=== PATIENT | male | born 1950 | race Caucasian/White ===

== ENCOUNTER 2017-12-27 21:15 | Inpatient (IN) ==
[2017-12-27 21:51] LABS: Baso # (Auto) 0.1 th/mm3 (0.0-0.2); Baso % (Auto) 0.6 % (0.0-2.0); Eos # (Auto) 0.3 th/mm3 (0.0-0.4); Eos % (Auto) 1.6 % (0.0-4.0); Hematocrit 34.3 % (39.0-51.0); Hemoglobin 11.2 gm/dL (13.0-17.0); Lymph # (Auto) 3.3 th/mm3 (1.0-4.8); Lymph % (Auto) 19.1 % (9.0-44.0); Mean Corpuscular HGB Conc 32.6 % (32.0-36.0); Mean Corpuscular Hemoglobin 28.9 pg (27.0-34.0); Mean Corpuscular Volume 88.7 fL (80.0-100.0); Mean Platelet Volume 7.6 fL (7.0-11.0); Mono # (Auto) 0.9 th/mm3 (0.0-0.9); Mono % (Auto) 5.5 % (0.0-8.0); Neut # (Auto) 12.7 th/mm3 (1.8-7.7); Neut % (Auto) 73.2 % (16.0-70.0); Platelet Count 542 th/mm3 (150-450); Red Blood Count 3.86 mil/mm3 (4.50-5.90); Red Cell Distribution Width 15.1 % (11.6-17.2); White Blood Count 17.3 th/mm3 (4.0-11.0)
[2017-12-27 22:21] LABS: Albumin 3.1 g/dL (3.4-5.0); Anion Gap 13 meq/L (5-15); Aspartate Aminotransferase 11 U/L (15-37); Blood Urea Nitrogen 33 mg/dL (7-18); Calcium 7.8 mg/dL (8.5-10.1); Carbon Dioxide 16.7 meq/L (21.0-32.0); Chloride 108 meq/L (98-107); Glomerular Filtration Rate 20 mL/min (>89); Glucose,Random 62 mg/dL (74-106); Magnesium 1.8 mg/dL (1.5-2.5); Sodium 138 meq/L (136-145)
[2017-12-27 22:22] LABS: Alanine Aminotransferase 18 U/L (12-78)
[2017-12-27 22:25] LABS: Alkaline Phosphatase 101 U/L (45-117); Total Protein 7.1 g/dL (6.4-8.2)
--- NOTE | 2017-12-27 22:38 | ED ---
HPI General Chief Complaint: Syncope Stated Complaint: Syncope Time Seen by Provider: 12/27/17 21:31 Source: patient and family Mode of arrival: EMS Limitations: no limitations History of Present Illness HPI narrative: 67-year-old male the presents to the ED for evaluation of syncope. Patient had a syncopal episode today. Per patient he has been having a few weeks of dizziness with exertion. Per patient he went to his doctor today and his doctor was concerned about his condition and ordered a CT scan as well as blood work. Patient has not got any of this test yet as he was just seen today. He was told that he will be called to get a CT scan. Per patient today he was doing his usual routine and per patient he had 4 drinks and then was cooking. Per patient he was cooking and also when he started feeling like he was going to pass out. Per patient he did pass out. He denies any chest pain or shortness of breath proceeding to the episode. Per significant other he was out for possible couple of minutes. He did landed on his left hand and has pain on his left hand. He states that he normally drinks on Fridays. He does have a history of COPD, diabetes, high blood pressure. He denies any recent travel. No other injuries reported. No neck or back pain. No leg pain. Patient concerned because he is never actually had a syncopal episode in the past. Denies any other medical issues. Related Data Home Medications Medication Instructions Recorded Confirmed amlodipine [Norvasc] 10 mg PO DAILY 12/27/17 12/27/17 fluoxetine [Prozac] 40 mg PO DAILY 12/27/17 12/27/17 lisinopril 28 mg PO BID 12/27/17 12/27/17 lisinopril 40 mg PO DAILY 12/27/17 12/27/17 Allergies Allergy/AdvReac Type Severity Reaction Status Date / Time No Known Allergies Allergy Unknown Abdominal Uncoded 12/27/17 21:20 Pain Review of Systems ROS: all other systems reviewed are negative [facility] Medical History Medical History COPD (chronic obstructive pulmonary disease) (Acute) Diabetes (Acute) HTN (hypertension) (Acute) Osteoarthritis (Acute) Social History Social History Substance History: No History of Abuse Second Hand Smoke Exposure: No Smoking Status: Current every day smoker Tobacco Type: Cigarettes How Often Do You Have a Drink Containing Alcohol: 2 to 3 times a week Recent Travel in [facility] within the Last 8 Weeks: No Recent Out of Country Travel within the Last 8 Weeks: No Immunization History Tetanus Immunization: >5 Years Hx Influenza Vaccine This Season: No Exam Narrative Exam Narrative: GENERAL: Well appearing SKIN: Focused skin assessment warm/dry. HEAD: Atraumatic. Normocephalic. EYES: Pupils equal and round. No scleral icterus. No injection or drainage. ENT: No nasal bleeding or discharge. Mucous membranes pink and moist. Tongue is midline. No uvula deviation. NECK: Trachea midline. No JVD. CARDIOVASCULAR: Regular rate and rhythm. No murmur appreciated. RESPIRATORY: No accessory muscle use. Clear to auscultation. Breath sounds equal bilaterally. GASTROINTESTINAL: Abdomen soft, non-tender, nondistended. Hepatic and splenic margins not palpable. MUSCULOSKELETAL: No obvious deformities. No clubbing. No cyanosis. No edema. Full range of motion of the upper and lower extremities bilaterally. Patient does have some pain to the left arm. Able to move all fingers fully. 2+ pulses bilaterally. Sensation intact bilaterally. NEUROLOGICAL: Awake and alert. No obvious cranial nerve deficits. Motor grossly within normal limits. Normal speech. PSYCHIATRIC: Appropriate mood and affect; insight and judgment normal. Course Initial Documented Vital Signs Pulse Rate 89 12/27/17 21:21 Respiratory Rate 16 12/27/17 21:21 Blood Pressure 182/80 H 12/27/17 21:21 Pulse Oximetry 98 12/27/17 21:21 Last Documented Vital Signs Temperature 98.6 F 12/27/17 21:25 Pulse Rate 88 12/27/17 21:25 Respiratory Rate 16 12/27/17 21:25 Blood Pressure 182/80 H 12/27/17 21:21 Pulse Oximetry 98 12/27/17 21:25 Medical Decision Making MDM Narrative Medical decision making narrative: 67-year-old male the presents to the ED for evaluation of syncope. Patient was properly examined and was found to have signs and symptoms consistent with syncope. Labs and imaging were ordered. Labs and imaging were essentially unremarkable other than for what appears to be acute kidney failure. Unclear etiology at this time. Could be dehydration. Patient does have a very high white blood cell count as well. Unclear etiology as well. Partially patient cannot get CTA to rule out PE. Patient is not tachycardic however. At this time I do recommend admission for further evaluation of this. Patient agrees with this. Case was discussed with the residents who agreed admission to their service. Patient was admitted. Medical Screen Exam Complete: Yes Emergency Medical Condition: Yes Differential Diagnosis Differential Diagnosis: Syncope versus ACS versus CVA versus orthostatic hypotension versus kidney failure Medical Records Medical records reviewed: Yes I reviewed the patient's medical records. Lab Data Lab results reviewed: Yes I reviewed the patient's lab results. Lab results narrative: Troponin and CK-MB negative. Result diagrams: 12/27/17 21:38 12/27/17 21:38 Lab Results 12/27/17 12/27/17 Range/Units 21:38 21:38 WBC 17.3 H (4.0-11.0) th/mm3 RBC 3.86 L (4.50-5.90) mil/mm3 Hgb 11.2 L (13.0-17.0) gm/dL Hct 34.3 L (39.0-51.0) % MCV 88.7 (80.0-100.0) fL MCH 28.9 (27.0-34.0) pg MCHC 32.6 (32.0-36.0) % RDW 15.1 (11.6-17.2) % Plt Count 542 H (150-450) th/mm3 MPV 7.6 (7.0-11.0) fL Neut % (Auto) 73.2 H (16.0-70.0) % Lymph % (Auto) 19.1 (9.0-44.0) % [place] % (Auto) 5.5 (0.0-8.0) % Eos % (Auto) 1.6 (0.0-4.0) % Baso % (Auto) 0.6 (0.0-2.0) % Neut # (Auto) 12.7 H (1.8-7.7) th/mm3 Lymph # (Auto) 3.3 (1.0-4.8) th/mm3 [place] # (Auto) 0.9 (0.0-0.9) th/mm3 Eos # (Auto) 0.3 (0.0-0.4) th/mm3 Baso # (Auto) 0.1 (0.0-0.2) th/mm3 WBC Differential . Differential Comment Auto diff final Sodium 138 (136-145) meq/L Potassium 5.0 (3.5-5.1) meq/L Chloride 108 H (98-107) meq/L Carbon Dioxide 16.7 L (21.0-32.0) meq/L Anion Gap 13 (5-15) meq/L BUN 33 H (7-18) mg/dL Creatinine 3.08 H (0.60-1.30) mg/dL Estimated GFR 20 L (>89) mL/min Random Glucose 62 L (74-106) mg/dL Calcium 7.8 L (8.5-10.1) mg/dL Magnesium 1.8 (1.5-2.5) mg/dL Total Bilirubin 0.1 L (0.2-1.0) mg/dL AST 11 L (15-37) U/L ALT 18 (12-78) U/L Alkaline Phosphatase 101 (45-117) U/L Troponin I Less than 0.02 L (0.02-0.05) ng/mL Total Protein 7.1 (6.4-8.2) g/dL Albumin 3.1 L (3.4-5.0) g/dL Imaging Data Attestation: I personally reviewed and interpreted this imaging study as follows : Radiologist's impression: Head CT 12/27/17 21:35 CONCLUSION: 1. No acute intracranial abnormalities. Right maxillary and sphenoid sinusitis. . ECG Data Attestation: I personally reviewed and interpreted this ECG as follows: Interpretation: EKG shows sinus rhythm with no sign of acute ischemia and arrhythmia read by me and attending. Discharge Plan Discharge Disposition Patient Disposition: 30 Still Patient Discharge Details Diagnosis: Syncope, Acute kidney injury Physicians Team ED Provider: Jay Villalobos ED Midlevel Provider: Jerod Davis Primary Care Provider: UNKNOWN, Rxs /Orders / Referrals /Forms Prescriptions: No Action fluoxetine [Prozac] 40 mg Capsule 40 mg PO DAILY RF: 0 lisinopril 20 mg Tablet 28 mg PO BID RF: 0 amlodipine [Norvasc] 10 mg Tablet 10 mg PO DAILY RF: 0 lisinopril 40 mg Tablet 40 mg PO DAILY RF: 0 Status ED Status: With Doctor
[2017-12-27] MEDS ORDERED: Sod Chloride 0.9% Inj 1,000 ML IV.SIG SCH (22:45)
--- NOTE | 2017-12-27 22:58 | CT ---
EXAM DATE: 12/27/2017 9:39 PM EDT AGE/SEX: 67 years / Male INDICATIONS: Syncopal episode, dizziness. CLINICAL DATA: This is the patient's initial encounter. Patient reports that signs and symptoms have been present for 2 days and indicates a pain score of 4/10. MEDICAL/SURGICAL HISTORY: Chronic obstructive pulmonary disease. Diabetes. Hypertension. Osteoar thritis. None. RADIATION DOSE: 56.35 CTDI (mGy) COMPARISON: No prior exams available for comparison. TECHNIQUE: CT of the head without contrast. Using automated exposure control and adjustment of the mA and/or kV according to patient size, radiation dose was kept as low as reasonably achievable to ob tain optimal diagnostic quality images. DICOM format image data is available electronically for revi ew and comparison. FINDINGS: Cerebrum: The ventricles are normal for age. No evidence of midline shift, mass lesion, hemorrhage or acute infarction. No extraaxial fluid collections are seen. Posterior Fossa: The cerebellum and brainstem are intact. The 4th ventricle is midline. The cerebe llopontine angle is unremarkable. Extracranial: The visualized portion of the orbits is intact. There is opacification of the right ma xillary sinus and partial opacification of the right sphenoid sinus. Trace fluid left sphenoid sinus. Skull: The calvaria is intact. No evidence of skull fracture. CONCLUSION: 1. No acute intracranial abnormalities. Right maxillary and sphenoid sinusitis. . Electronically signed by: Hugh Cutler MD 12/27/2017 10:57 PM EDT
--- NOTE | 2017-12-27 23:28 | P.HPFP ---
History of Present Illness Primary Care Physician: Dr. Emmanuel Love History of Present Illness: 67-year-old male with COPD, hypertension, and diabetes presents to the ED for syncopal episode. Patient reports that he saw his PCP, Dr. Kayden Love today. Patient was being worked up for several things. Patient has had a one- month history of nausea and vomiting. He states that he was having nonbloody, nonbilious vomiting 1 time per day for a couple weeks and then decreased vomiting to 2-3 times per week. Patient reports that he has also had a 20 pound weight loss in the past month. Due to patient's extensive smoking history , nausea vomiting, and weight loss, outpatient CT was ordered for patient. Denies fevers, night sweats, dysuria, hematochezia, and melena. Patient reports that he has never had a colonoscopy. Patient also reports that he was also sent home with amoxicillin 500 mg every 8h for a tooth infection. Patient reports that he has pain in his right top wisdom tooth. He reports it has been hurting for about 1 week. He does not currently have a dentist. States that he has been taking ibuprofen w/ mild relief for the past 3 days for toothache. This evening, while patient was cooking, patient recently passed out around 9: 30 PM. Patient was brought to the ED via ambulance. Syncope episode was witnessed by girlfriend. Patient reports losing consciousness for a couple of minutes. He fell on his left hand and reports that it is painful and it is hard to bend his fingers. He did not hit his head. He denies tongue biting, loss of bowel or bladder control, palpitations, and diaphoresis. He does endorse weakness in his legs. Patient reports that this is his first syncopal episode. Denies history of seizures and history of cardiac issues. 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, retired 2013 Alcohol: six pack weekly Tobacco: PPD X 50 years - Diagnosis (1) Syncope (2) Hand injury (3) Acute kidney injury (4) Anemia (5) Infected tooth (6) COPD (chronic obstructive pulmonary disease) (7) Diabetes (8) HTN (hypertension) (9) Current smoker (10) Nutrition, metabolism, and development symptoms Review of Systems Constitutional: Reports weight loss, Denies chills, Denies fever(s), Denies headache(s), Denies night sweats Eyes: Denies blurry vision, Denies change in vision Ears, Nose, Mouth, and Throat: Reports dental pain, Denies abnormal hearing, Denies difficulty swallowing Cardiovascular: Denies chest pain, Denies lightheadedness Respiratory: Denies cough, Denies shortness of breath Gastrointestinal: Reports vomiting, Denies abdominal pain, Denies black, tarry stools, Denies bright, red blood in stools, Denies vomiting blood Musculoskeletal: Denies muscle weakness Comments: lower extremity weakness Neurologic: Reports weakness, Denies tingling/numbness/burning sensations PMFSH - History History Provided By: Patient, Hired Help / EMT - Medical History Medical History: Medical History (Last Reviewed 12/27/17 @ 22:36 by MOLLY Lima) COPD (chronic obstructive pulmonary disease) Diabetes HTN (hypertension) Osteoarthritis - Surgical History Surgical History: Surgical History (Last Updated 12/28/17 @ 01:05 by Uam Lucio MD, R2) No pertinent past surgical history (Acute) - Family History Family History: Family History (Last Updated 12/28/17 @ 01:06 by Uma Lucio MD, R2) Other No significant family history - Social History I have reviewed the patient's Social History: Yes - Tobacco History Second Hand Smoke Exposure: No Tobacco Use In Past 30 Days: No Smoking Status: Current every day smoker Tobacco Type: Cigarettes - Alcohol History How Often Do You Have a Drink Containing Alcohol: 2 to 3 times a week - Substance Use History Substance History: No History of Abuse - Travel History Recent Travel in the [place] Within the Last 8 Weeks: No Recent Travel Out of the Country Within the Last 8 Weeks: No - Immunization History Tetanus Immunization: >5 Years Hx Influenza Vaccine This Season: No Medications and Allergies Active Medications: Active Medications Sodium Chloride (Ns Inj) 1,000 mls @ 0 mls/hr IV.SIG BOLUS RE Allergies Allergy/AdvReac Type Severity Reaction Status Date / Time No Known Allergies Allergy Unknown Abdominal Uncoded 12/27/17 21:20 Pain Home Medications Medication Instructions Recorded Confirmed Type amlodipine [Norvasc] 10 mg PO DAILY 12/27/17 12/27/17 History fluoxetine [Prozac] 40 mg PO DAILY 12/27/17 12/27/17 History lisinopril 28 mg PO BID 12/27/17 12/27/17 History lisinopril 40 mg PO DAILY 12/27/17 12/27/17 History Exam Vital signs: Vital Signs 12/27/17 21:21 12/27/17 21:25 Temperature 98.6 F Pulse Rate 89 88 Respiratory Rate 16 16 Blood Pressure 182/80 H Pulse Oximetry 98 98 Intake & Output 12/27/17 12/27/17 12/28/17 06:59 18:59 06:59 Weight 77.111 kg - Constitutional no acute distress - Routine HEENT Exam Head: Present: normocephalic, atraumatic Eye: Present: EOMI, PERRL ENT: Present: mucous membranes moist Comments: slight pallor conjunctiva noted bilaterally - Routine Neck Exam Present: supple, full ROM. Absent: lymphadenopathy - Routine Respiratory Exam Present: wheezes. Absent: accessory muscle use, crackles Comments: Wheezing throughout all lung rojas - Routine Cardiovascular Exam Present: RRR. Absent: murmur, gallop, rubs - Routine Abdominal Exam Present: soft, normoactive bowel sounds. Absent: tenderness, distended - Routine Extremities Exam Present: full ROM. Absent: cyanosis, clubbing, edema Comments: Left hand with ecchymoses and bruising and swelling of left fingers - Routine Skin Exam Present: intact. Absent: cyanosis - Routine Neurological Exam Present: alert, oriented X3 Results - Labs Result diagrams: 12/27/17 21:38 12/27/17 21:38 Abnormal lab results 12/27/17 12/27/17 Range/Units 21:38 21:38 WBC 17.3 H (4.0-11.0) th/mm3 RBC 3.86 L (4.50-5.90) mil/mm3 Hgb 11.2 L (13.0-17.0) gm/dL Hct 34.3 L (39.0-51.0) % Plt Count 542 H (150-450) th/mm3 Neut % (Auto) 73.2 H (16.0-70.0) % Neut # (Auto) 12.7 H (1.8-7.7) th/mm3 Chloride 108 H (98-107) meq/L Carbon Dioxide 16.7 L (21.0-32.0) meq/L BUN 33 H (7-18) mg/dL Creatinine 3.08 H (0.60-1.30) mg/dL Estimated GFR 20 L (>89) mL/min Random Glucose 62 L (74-106) mg/dL Calcium 7.8 L (8.5-10.1) mg/dL Total Bilirubin 0.1 L (0.2-1.0) mg/dL AST 11 L (15-37) U/L Troponin I Less than 0.02 L (0.02-0.05) ng/mL Albumin 3.1 L (3.4-5.0) g/dL Short CBC 12/27/17 Range/Units 21:38 WBC 17.3 H (4.0-11.0) th/mm3 Hgb 11.2 L (13.0-17.0) gm/dL Hct 34.3 L (39.0-51.0) % Plt Count 542 H (150-450) th/mm3 BMP 12/27/17 21:38 Sodium 138 Potassium 5.0 Chloride 108 H Carbon Dioxide 16.7 L BUN 33 H Creatinine 3.08 H Calcium 7.8 L Cardiac Enzymes 12/27/17 Range/Units 21:38 Troponin I Less than 0.02 L (0.02-0.05) ng/mL Liver Function 12/27/17 Range/Units 21:38 Total Bilirubin 0.1 L (0.2-1.0) mg/dL AST 11 L (15-37) U/L ALT 18 (12-78) U/L Alkaline Phosphatase 101 (45-117) U/L Albumin 3.1 L (3.4-5.0) g/dL - Imaging Impressions Head CT 12/27/17 21:35 CONCLUSION: 1. No acute intracranial abnormalities. Right maxillary and sphenoid sinusitis. . Caprini VTE Risk Assessment Caprini VTE Risk Assessment: Moderate/High Risk (score >= 2) Caprini Risk Assessment Model: Point Value = 1 Point Value = 2 Point Value = 3 Point Value = 5 Age 41-60 Minor surgery BMI > 25 kg/m2 Swollen legs Varicose veins or History of unexplained or recurrent spontaneous Oral contraceptives or hormone replacement Sepsis (< 1 month) Serious lung disease, including pneumonia (< 1 month) Abnormal pulmonary function Acute myocardial infarction Congestive heart failure (< 1 month) History of inflammatory bowel disease Medical patient at bed rest Age 61-74 Arthroscopic surgery Major open surgery (> 45 min) Laparoscopic surgery (> 45 min) Malignancy Confined to bed (> 72 hours) Immobilizing plaster cast Central venous access Age >= 75 History of VTE Family history of VTE Factor V Leiden Prothrombin [id number] Lupus anticoagulant Anticardiolipin antibodies Elevated serum homocysteine Heparin-induced thrombocytopenia Other congenital or acquired thrombophilia Stroke (< 1 month) Elective arthroplasty Hip, pelvis, or leg fracture Acute spinal cord injury (< 1 month) Prophylaxis Regimen: Total Risk Factor Score Risk Level Prophylaxis Regimen 0-1 Low Early ambulation 2 Moderate Order ONE of the following: *Sequential Compression Device (SCD) *Heparin 5000 units SQ BID 3-4 Higher Order ONE of the following medications: *Heparin 5000 units SQ TID *Enoxaparin/Lovenox 40 mg SQ daily (WT < 150 kg, CrCl > 30 mL/min) *Enoxaparin/Lovenox 30 mg SQ daily (WT < 150 kg, CrCl > 10-29 mL/min) *Enoxaparin/Lovenox 30 mg SQ BID (WT < 150 kg, CrCl > 30 mL/min) AND/OR *Sequential Compression Device (SCD) 5 or more Highest Order ONE of the following medications: *Heparin 5000 units SQ TID (Preferred with Epidurals) *Enoxaparin/Lovenox 40 mg SQ daily (WT < 150 kg, CrCl > 30 mL/min) *Enoxaparin/Lovenox 30 mg SQ daily (WT < 150 kg, CrCl > 10-29 mL/min) *Enoxaparin/Lovenox 30 mg SQ BID (WT < 150 kg, CrCl > 30 mL/min) AND *Sequential Compression Device (SCD) Assessment and Plan - Assessment (1) Syncope Code(s): R55 - Syncope and collapse Status: Acute Plan: 67-year-old male with COPD, hypertension, diabetes presents to the ED with syncopal episode. Patient admitted for overnight observation. Differential diagnosis: Vasovagal vs dehydration vs infection vs electrolyte imbalance vs cardiogenic vs neurogenic -Head CT negative -Chest x-ray negative -EKG demonstrates sinus rhythm -Continue cardiac telemetry -Obtain orthostatic blood pressures -Neurochecks every 4h (2) Hand injury Code(s): S69.90XA - Unspecified injury of unspecified wrist, hand and finger(s) , initial encounter Status: Acute Plan: Left hand injury due to fall. Wrist and hand x-ray demonstrates fractures at the proximal aspect of the fourth and fifth proximal phalanges. Hand surgery consulted, appreciate recommendations N.p.o. after midnight. Coagulation profile ordered Type and Screen ordered (3) Acute kidney injury Code(s): N17.9 - Acute kidney failure, unspecified Status: Acute Plan: Patient with a baseline creatinine of 1.7. BMP demonstrates BUN of 33 and creatinine of 3.08 KAYLA most likely due to dehydration Avoid nephrotoxic agents Continue normal saline 120mls/hr Continue to monitor (4) Anemia Code(s): D64.9 - Anemia, unspecified Status: Acute Plan: Hb/Hct of 11.2/34.3, MCV of 88.7 Suspecting iron deficiency anemia Iron panel ordered Transfuse if hemoglobin less than 7 (5) Infected tooth Code(s): K04.7 - Periapical abscess without sinus Status: Acute Plan: Patient with infected right wisdom tooth. Patient reports that he was not able to cotton picker his amoxicillin prescription today Due to KAYLA, will start patient on clindamycin 450 mg p.o. every 8 hours Will need to establish with a dentist outpatient (6) COPD (chronic obstructive pulmonary disease) Code(s): J44.9 - Chronic obstructive pulmonary disease, unspecified Status: Acute Plan: Patient currently not on home oxygen Patient reports being on home albuterol nebs as needed Wheezing noted throughout all lung rojas noted on physical exam. DuoNeb every 4 hours (7) Diabetes Code(s): E11.9 - Type 2 diabetes mellitus without complications Status: Acute Plan: Hold home Levemir, patient currently NPO after midnight for hand surgery Low dose SSI (8) HTN (hypertension) Code(s): I10 - Essential (primary) hypertension Status: Acute Plan: Continue amlodipine 10 mg daily Hold home lisinopril 20-40mg daily due to KAYLA Clonidine 0.1 mg as needed for blood pressures greater than 180/100 (9) Current smoker Code(s): F17.200 - Nicotine dependence, unspecified, uncomplicated Status: Acute Plan: 50 yr pack year smoking history Patient declined nicotine patch (10) Nutrition, metabolism, and development symptoms Code(s): R63.8 - Other symptoms and signs concerning food and fluid intake Status: Acute Plan: Diet: N.p.o. after midnight Fluids: NS 120mls/hr Cardiac telemetry, vitals every 4, monitor I's and O's DVT ppx: SCDs and ambulation (1) Syncope Qualifiers: Syncope type: unspecified Qualified Code(s): R55 - Syncope and collapse
--- NOTE | 2017-12-27 23:37 | XR ---
EXAM DATE: 12/27/2017 10:41 PM EDT AGE/SEX: 67 years / Male INDICATIONS: Pain due to fall. CLINICAL DATA: This is the patient's initial encounter. Patient reports that signs and symptoms have been present for 1 day and indicates a pain score of 4/10. MEDICAL/SURGICAL HISTORY: . Chronic obstructive pulmonary disease. Diabetes. Hypertension. Oste oarthritis. None. COMPARISON: No prior exams available for comparison. FINDINGS: There is fracturing at the proximal aspects of the fourth and fifth proximal phalanges. No other frac tures seen. CONCLUSION: Acute fracturing at the proximal aspect of the fourth and fifth proximal phalanges. Electronically signed by: Gm Rae MD 12/27/2017 11:35 PM EDT
--- NOTE | 2017-12-27 23:40 | XR ---
EXAM DATE: 12/27/2017 10:41 PM EDT AGE/SEX: 67 years / Male INDICATIONS: Pain due to fall. CLINICAL DATA: This is the patient's initial encounter. Patient reports that signs and symptoms have been present for 1 day and indicates a pain score of 4/10. MEDICAL/SURGICAL HISTORY: . Chronic obstructive pulmonary disease. Diabetes. Hypertension. Oste oarthritis. None. COMPARISON: No prior exams available for comparison. FINDINGS: The carpal bones and wrist appear intact and normally aligned. Again noted are fractures at the proxi mal aspects of the fourth and fifth proximal phalanges. CONCLUSION: Fractures at the proximal aspects of the fourth and fifth proximal phalanges. Electronically signed by: Gm Rae MD 12/27/2017 11:38 PM EDT
--- NOTE | 2017-12-27 23:56 | XR ---
EXAM DATE: 12/27/2017 11:19 PM EDT AGE/SEX: 67 years / Male INDICATIONS: Shortness of breath, syncopal episode. CLINICAL DATA: This is the patient's initial encounter. Patient reports that signs and symptoms have been present for 1 day and indicates a pain score of 0/10. MEDICAL/SURGICAL HISTORY: Chronic obstructive pulmonary disease. Hypertension. Diabetes. None . COMPARISON: No prior exams available for comparison. FINDINGS: A single AP view of the chest demonstrates the lungs to be symmetrically aerated without evidence of mass, infiltrate or effusion. The cardiomediastinal contours are unremarkable. Osseous structures a re intact. CONCLUSION: No acute cardiopulmonary process. Electronically signed by: Gm Rae MD 12/27/2017 11:55 PM EDT
[2017-12-28] MEDS ORDERED: Dextrose 50% in Water 50 ML Vial IV.PUSH PRN (00:29)
[2017-12-28] MEDS ORDERED: Sod Chloride 0.9% Inj 1,000 ML IV.CONT SCH (00:30)
[2017-12-28] MEDS ORDERED: Acetaminophen 325 MG Tablet PO PRN (00:44)
[2017-12-28] MEDS ORDERED: Naloxone Inj 0.4 MG/ML Vial IV.PUSH PRN (01:26)
[2017-12-28] MEDS ORDERED: amLODIPine 10 MG Tablet PO ONE (01:26)
[2017-12-28 02:20] LABS: Baso # (Auto) 0.1 th/mm3 (0.0-0.2); Baso % (Auto) 0.4 % (0.0-2.0); Eos # (Auto) 0.1 th/mm3 (0.0-0.4); Eos % (Auto) 0.3 % (0.0-4.0); Hematocrit 34.5 % (39.0-51.0); Hemoglobin 11.4 gm/dL (13.0-17.0); Lymph # (Auto) 1.3 th/mm3 (1.0-4.8); Lymph % (Auto) 6.6 % (9.0-44.0); Mean Corpuscular HGB Conc 33.1 % (32.0-36.0); Mean Corpuscular Hemoglobin 29.1 pg (27.0-34.0); Mean Corpuscular Volume 87.8 fL (80.0-100.0); Mean Platelet Volume 7.1 fL (7.0-11.0); Mono # (Auto) 0.8 th/mm3 (0.0-0.9); Mono % (Auto) 3.9 % (0.0-8.0); Neut # (Auto) 17.5 th/mm3 (1.8-7.7); Neut % (Auto) 88.8 % (16.0-70.0); Platelet Count 504 th/mm3 (150-450); Red Blood Count 3.93 mil/mm3 (4.50-5.90); Red Cell Distribution Width 14.9 % (11.6-17.2); White Blood Count 19.7 th/mm3 (4.0-11.0)
[2017-12-28 02:23] LABS: Iron 40 mcg/dL (65-175); Total Iron Binding Capacity 266 mcg/dL (250-450)
[2017-12-28 02:28] LABS: INR 0.9 Ratio; Prothrombin Time 9.6 sec (9.8-11.6)
[2017-12-28 03:11] LABS: Albumin 3.2 g/dL (3.4-5.0); Anion Gap 10 meq/L (5-15); Aspartate Aminotransferase 13 U/L (15-37); Blood Urea Nitrogen 36 mg/dL (7-18); Calcium 8.6 mg/dL (8.5-10.1); Carbon Dioxide 18.2 meq/L (21.0-32.0); Chloride 110 meq/L (98-107); Glomerular Filtration Rate 21 mL/min (>89); Glucose,Random 89 mg/dL (74-106); Potassium 5.6 meq/L (3.5-5.1); Sodium 138 meq/L (136-145)
[2017-12-28 03:19] LABS: Alanine Aminotransferase 19 U/L (12-78); Alkaline Phosphatase 109 U/L (45-117); Total Protein 7.2 g/dL (6.4-8.2)
[2017-12-28 06:13] LABS: Bacteria,Urine Rare /hpf; Bilirubin,Urine Negative (Negative); Clarity,Urine Cloudy (Clear); Color,Urine Yellow (Yellw/Straw); Glucose,Urine (UA) 50 mg/dL (Negative); Hyaline Casts,Urine 7 /lpf (0-3); Leukocyte Esterase,Urine Negative (Negative); Mucus,Urine Few /lpf (Occasional); Nitrite,Urine Negative (Negative); Renal Epithelial Cells,Urine 1 /hpf; Squamous Epithelial Cell,Urine 1 /hpf (0-5); Transitional Epi Cells,Urine <1 /hpf
[2017-12-28] MEDS ORDERED: Dextrose 5%/NaCl 0.9% Inj 1,000 ML IV.CONT SCH (08:00)
[2017-12-28] MEDS ORDERED: Non-Formulary Drug (Fluoxetine [Prozac] 40 MG) PO SCH (09:00)
[2017-12-28] MEDS ORDERED: Sodium Polystyrene Sulfonate/Sorbitol Liq 15 GM/60 ML UDC PO ONE (09:11)
--- NOTE | 2017-12-28 09:39 | ECG ---
Date Performed: 12/27/2017 Time Performed: 21:26:59 PTAGE: 67 years EKG: Sinus rhythm NORMAL ECG I cannot accurately compare EKGs as prior EKG has marked artifact. PREVIOUS TRACING : 04/26/2016 13.38 DOCTOR: Richard Medina Interpretating Date/Time 12/28/2017 09:37:38
[2017-12-28] MEDS: Insulin NovoLOG Aspart Correctional Sugar Inj SQ SCH ×4 (09:44→20:58)
[2017-12-28] MEDS: Insulin Detemir Inj 1,000 UNIT/10 ML Vial SQ SCH ×2 (10:11→21:00)
[2017-12-28 11:05] LABS: Hepatitits B Surface Antigen Nonreactive (Nonreactive)
[2017-12-28 11:16] LABS: Creatinine,Urine Random 60 mg/dL (27-300)
[2017-12-28 11:34] LABS: Hepatitis A IgM Antibody Nonreactive (Nonreactive)
--- NOTE | 2017-12-28 11:56 | CT ---
EXAM DATE: 12/28/2017 8:47 AM EDT AGE/SEX: 67 years / Male INDICATIONS: Shortness of breath. Weakness. CLINICAL DATA: This is the patient's initial encounter. Patient reports that signs and symptoms have been present for 1 day and indicates a pain score of 0/10. MEDICAL/SURGICAL HISTORY: Chronic obstructive pulmonary disease. Diabetes. Hypertension. None. RADIATION DOSE: 8.32 CTDI (mGy) COMPARISON: No prior exams available for comparison. TECHNIQUE: Multiple contiguous axial images were obtained through the chest without contrast. Image s were obtained in suspended respiration using multiple row detector helical technique. Using automa josue exposure control and adjustment of the mA and/or kV according to patient size, radiation dose was kept as low as reasonably achievable to obtain optimal diagnostic quality images. DICOM format imag e data is available electronically for review and comparison. FINDINGS: Lungs: No consolidation or pneumothorax. There is mild dependent atelectasis. In the left upper lob e there is a smooth 8mm noncalcified pulmonary nodule. Subtle paraseptal emphysematous changes are pr esent in the upper lobes bilaterally. Questionable 4 mm nodule versus thickening of the minor fissure is seen in the right lung on image 36. Mediastinum: The heart and great vessels demonstrate no acute abnormality. No lymphadenopathy is id entified. There is moderate atherosclerotic disease of the aorta. Pleurae: No pleural effusion or pleural thickening. Axillae: No lymphadenopathy. Musculoskeletal: There are mild degenerative changes of the thoracic spine. Soft tissue density smoo th masslike structure is located directly posterior to the medial left clavicle and adjacent to the s ternoclavicular joint. It measures approximately 4.1 x 2.0 x 3.7 cm. There is adjacent scalloping of the posterior aspect of the clavicle with associated sclerotic rim suggesting that it is a chronic pr ocess. The masslike structure has a mild mass effect on the adjacent structures including the great v essels and thyroid gland. Other: The visualized upper abdominal structures demonstrate no acute abnormality. CONCLUSION: 1. No acute abnormality is identified to explain the shortness of breath. Very mild emphysematous ch anges are appreciated. 2. Nonspecific 4.1 cm masslike structure posterior to the medial left clavicle. Given the location a djacent to the sternoclavicular joint and I believe this may represent a hypertrophic synovial proces s related to a degenerative process. This causing a chronic erosion on the posterior aspect of the me dial clavicle. Suggest correlating for any pain in this area. This would ideally be further character ized with elective sternoclavicular joint focused MRI. 3. There is a smooth 8mm nodule in the left upper lobe. Fleischner Society recommendations for a hig h risk patient suggest follow-up chest CT in approximately 3-6 months. Electronically signed by: Gm Gan MD 12/28/2017 11:54 AM EDT
--- NOTE | 2017-12-28 11:58 | CT ---
EXAM DATE: 12/28/2017 8:47 AM EDT AGE/SEX: 67 years / Male INDICATIONS: Weakness. Pain. CLINICAL DATA: This is the patient's initial encounter. Patient reports that signs and symptoms have been present for 1 day and indicates a pain score of 0/10. MEDICAL/SURGICAL HISTORY: Hypertension. Osteoarthritis. None. RADIATION DOSE: 9.86 CTDI (mGy) COMPARISON: No prior exams available for comparison. TECHNIQUE: Multiple contiguous axial images were obtained through the pelvis without contrast. Imag es were obtained using multiple row detector helical technique. . Using automated exposure control an d adjustment of the mA and/or kV according to patient size, radiation dose was kept as low as reasona dexter achievable to obtain optimal diagnostic quality images. DICOM format image data is available sawyer ctronically for review and comparison. FINDINGS: Bowel/Mesentery: The visualized small and large bowel demonstrate no acute abnormality. Bladder: Urinary bladder is decompressed with a Douglas catheter in place. Retroperitoneum: No lymphadenopathy or acute vascular abnormality. There is moderate atheroscleroti c disease of the pelvic arterial vessels. Reproductive Organs: No acute abnormality. Bilateral vasectomy clips are present. Inguinal: No lymphadenopathy or hernia. Bony Structures: No acute osseous abnormality is identified. There is degenerative disc disease at L 5-S1. Other: None. CONCLUSION: No acute abnormality is identified within the pelvis. Electronically signed by: Gm Gan MD 12/28/2017 11:57 AM EDT
[2017-12-28 12:01] LABS: Calcium 8.1 mg/dL (8.5-10.1); Carbon Dioxide 19.4 meq/L (21.0-32.0); Potassium 5.8 meq/L (3.5-5.1)
[2017-12-28] MEDS: Senna/Docusate Sodium 8.6/50 MG Tablet PO SCH ×2 (13:01→20:58)
[2017-12-28] MEDS: amLODIPine 10 MG Tablet PO SCH (13:01)
[2017-12-28] MEDS: FLUoxetine 20 MG Capsule PO SCH (13:01)
--- NOTE | 2017-12-28 13:16 | P.HPFP ---
History of Present Illness Primary Care Physician: Kayden Stiles Chief Complaint: "Passed out" History of Present Illness: 67-year-old male with COPD, hypertension, and diabetes presents to the ED for syncopal episode. Patient reports that he saw his PCP, Dr. Kayden Love yesterday. Patient was being worked up for several things. Patient has had a one-month history of nausea and vomiting. He states that he was having nonbloody, nonbilious vomiting 1 time per day for a couple weeks and then decreased vomiting to 2-3 times per week. Patient reports that he has also had a 20 pound weight loss in the past month or two. Due to patient's extensive smoking history, nausea vomiting, and weight loss, outpatient CT was ordered for patient. Denies fevers, night sweats, dysuria, hematochezia, or abdominal pain and melena. Patient reports that he has never had a colonoscopy. Patient also reports that he was also sent home with amoxicillin 500 mg every 8h for a tooth infection. Patient reports that he has pain in his right top wisdom tooth. He reports it has been hurting for about 1 week. He does not currently have a dentist. States that he has been taking ibuprofen w/ mild relief for the past 3 days for toothache. This evening, while patient was cooking, patient recently passed out around 9: 30 PM. Patient was brought to the ED via ambulance. Syncope episode was witnessed by girlfriend. Patient reports losing consciousness for a couple of minutes. He fell on his left hand and reports that it is painful and it is hard to bend his fingers. He did not hit his head. He denies tongue biting, loss of bowel or bladder control, palpitations, and diaphoresis. He does endorse weakness in his legs. Patient reports that this is his first syncopal episode. Denies history of seizures and history of cardiac issues. 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 - Diagnosis (1) Infected tooth (2) COPD (chronic obstructive pulmonary disease) (3) Diabetes (4) Current smoker (5) Nutrition, metabolism, and development symptoms Review of Systems Ears, Nose, Mouth, and Throat: Reports abnormal hearing, Reports dental pain Genitourinary: Reports other (difficulty voiding) Neurologic: Reports fainting PMFSH - History History Provided By: Patient (Past medical, family, and surgical history noted in HPI section of note. ), Gate Services Supervisor / EMT - Medical History Medical History: Medical History (Last Reviewed 12/27/17 @ 22:36 by MOLLY Lima) COPD (chronic obstructive pulmonary disease) Diabetes HTN (hypertension) Osteoarthritis - Surgical History Surgical History: Surgical History (Last Updated 12/28/17 @ 01:05 by Uma Lucio MD, R2) No pertinent past surgical history (Acute) - Family History Family History: Family History (Last Updated 12/28/17 @ 01:06 by Uma Lucio MD, R2) Other No significant family history - Social History I have reviewed the patient's Social History: Yes - Tobacco History Second Hand Smoke Exposure: No Tobacco Use In Past 30 Days: No Smoking Status: Current every day smoker Tobacco Type: Cigarettes - Alcohol History How Often Do You Have a Drink Containing Alcohol: 2 to 3 times a week - Substance Use History Substance History: No History of Abuse - Travel History Recent Travel in the [place] Within the Last 8 Weeks: No Recent Travel Out of the Country Within the Last 8 Weeks: No - Immunization History Tetanus Immunization: >5 Years Hx Influenza Vaccine This Season: No Medications and Allergies Active Medications: Active Medications Acetaminophen (Tylenol) 650 mg PO Q4H PRN PRN Reason: Pain1-2 Hydrocodone Bitart/Acetaminophen ([place] 7.5/325) 1 tab PO Q4H PRN PRN Reason: PAIN SCALE 6 TO 10 Hydrocodone Bitart/Acetaminophen ([place] 5/325) 1 tab PO Q4H PRN PRN Reason: PAIN SCALE 3 TO 5 Last Admin: 12/28/17 05:35 Dose: 1 tab Albuterol (Duoneb Neb (Ang[place])) 1 ampul NEB Q6HR WHILE AWAKE NEB ANGELES Last Admin: 12/28/17 07:40 Dose: 1 ampul Amlodipine Besylate (Norvasc) 10 mg PO DAILY [facility] Clindamycin HCl (Cleocin) 450 mg PO Q8HR [facility] Last Admin: 12/28/17 05:37 Dose: 450 mg Clonidine HCl (Catapres) 0.1 mg PO Q6H PRN PRN Reason: SEE LABEL COMMENTS Dextrose (D50w Vial) 50 ml IV.PUSH UNSCH PRN PRN Reason: PER HYPOGLYCEMIA PROTOCOL Fluoxetine HCl (Prozac) 40 mg PO DAILY [facility] Glucagon (Glucagon Inj) 1 mg OTHER PRN PRN PRN Reason: for Hypoglycemia Protocol Sodium Chloride (Ns Inj) 1,000 mls @ 0 mls/hr IV.SIG BOLUS [facility] Dextrose/Sodium Chloride (D5w/Normal Saline Inj) 1,000 mls @ 120 mls/hr IV.CONT .Q8H20M [facility] Last Admin: 12/28/17 08:14 Dose: 120 mls/hr Insulin Aspart (Novolog Insulin Correctional Sugar Inj) 0 unit SQ ACHS [facility]; Protocol Last Admin: 12/28/17 09:44 Dose: Not Given Insulin Detemir (Levemir Inj) 20 unit SQ HS [facility] Insulin Detemir (Levemir Inj) 25 unit SQ DAILY [facility] Last Admin: 12/28/17 10:11 Dose: Not Given Naloxone HCl (Narcan Inj) 0.4 mg IV.PUSH UNSCH PRN PRN Reason: SEE LABEL COMMENTS Ondansetron HCl (Zofran Inj) 4 mg IV.PUSH Q6H PRN PRN Reason: NAUSEA Last Admin: 12/28/17 07:53 Dose: 4 mg Senna/Docusate Sodium (Beulah-Colace) 1 tab PO BID [facility] Allergies Allergy/AdvReac Type Severity Reaction Status Date / Time No Known Allergies Allergy Unknown Abdominal Uncoded 12/27/17 21:20 Pain Home Medications Medication Instructions Recorded Confirmed Type amlodipine [Norvasc] 10 mg PO DAILY 12/27/17 12/27/17 History fluoxetine [Prozac] 40 mg PO DAILY 12/27/17 12/27/17 History lisinopril 40 mg PO DAILY 12/27/17 12/27/17 History Exam Vital signs: Vital Signs 12/27/17 21:21 12/27/17 21:25 12/28/17 00:52 Temperature 98.6 F 98.6 F Pulse Rate 89 88 104 H Respiratory Rate 16 16 16 Blood Pressure 182/80 H 191/94 H Pulse Oximetry 98 98 98 12/28/17 04:00 12/28/17 04:04 12/28/17 07:40 Temperature 98.4 F Pulse Rate 100 H 94 H 93 H Respiratory Rate 18 19 Blood Pressure 171/77 H Pulse Oximetry 95 98 12/28/17 08:00 Temperature 98.6 F Pulse Rate 86 Respiratory Rate 16 Blood Pressure 180/88 H Pulse Oximetry 96 Intake & Output 12/27/17 12/28/17 12/28/17 18:59 06:59 18:59 Intake Total 800 / 800 Output Total 1000 / 1000 Balance -200 / -200 Weight 77.111 kg Intake: IV 800 / 800 NS Inj 1,000 ML @ 120 mls/hr IV 800 / 800 .CONT .Q8H20M [facility] Rx#:[id number] Output: Urine Amount (Catheter) 1000 / 1000 Indwelling Urethral Catheter 1000 / 1000 Other: Weight On Admission 77.111 kg - Constitutional no acute distress, average body habitus, cooperative - Routine HEENT Exam Head: Present: normocephalic, atraumatic Eye: Present: EOMI ENT: Present: mucous membranes moist Comments: poor dentition - Routine Neck Exam Present: lymphadenopathy (no cervical lymphadenopathy, no tracheal deviatioin or thyromegaly) - Routine Chest/Breast/Axilla Exam Axillae: Present: lymphadenopathy (no axillary LAD) - Routine Respiratory Exam Present: accessory muscle use (no accessory muscle use, breathing comfortably with scattered wheezes), prolonged expiratory phase - Routine Cardiovascular Exam Present: RRR, S1, S2, murmur - Routine Abdominal Exam Present: soft, normoactive bowel sounds. Absent: tenderness, distended, rebound , guarding - Routine Skin Exam Present: intact, dry. Absent: jaundice Comments: + telangectasias - Routine Neurological Exam Present: CN II-XII intact (visual rojas intact and all other CN intact with the exception of aniscoria L > R). Absent: alert, oriented X3, sensory deficit , motor deficit, pronator drift, altered mental status, moving all extremities, normal speech, tremors - Routine Psychiatric Exam Present: normal affect, normal thought process, good insight, good judgment Results - Labs Result diagrams: 12/28/17 02:08 12/28/17 10:45 Abnormal lab results 12/27/17 12/27/17 12/28/17 Range/Units 21:38 21:38 00:42 WBC 17.3 H (4.0-11.0) th/mm3 RBC 3.86 L (4.50-5.90) mil/mm3 Hgb 11.2 L (13.0-17.0) gm/dL Hct 34.3 L (39.0-51.0) % Plt Count 542 H (150-450) th/mm3 Neut % (Auto) 73.2 H (16.0-70.0) % Lymph % (Auto) (9.0-44.0) % Neut # (Auto) 12.7 H (1.8-7.7) th/mm3 PT (9.8-11.6) sec Potassium (3.5-5.1) meq/L Chloride 108 H (98-107) meq/L Carbon Dioxide 16.7 L (21.0-32.0) meq/L BUN 33 H (7-18) mg/dL Creatinine 3.08 H (0.60-1.30) mg/dL Estimated GFR 20 L (>89) mL/min POC Glucose 127 H (68-110) mg/dl Random Glucose 62 L (74-106) mg/dL Calcium 7.8 L (8.5-10.1) mg/dL Iron 40 L (65-175) mcg/dL % Saturation 15.0 L (20-50) % Total Bilirubin 0.1 L (0.2-1.0) mg/dL AST 11 L (15-37) U/L Troponin I Less than 0.02 L (0.02-0.05) ng/mL Albumin 3.1 L (3.4-5.0) g/dL Urine Clarity (Clear) Urine Occult Blood (Negative) Urine WBC (0-5) /hpf Urine Bacteria (None) /hpf Urine Mucus (Occasional) /lpf Hep B Core IgM Ab (Nonreactive) Hep C IgG Ab (Nonreactive) 12/28/17 12/28/17 12/28/17 Range/Units 02:08 02:08 02:08 WBC 19.7 H (4.0-11.0) th/mm3 RBC 3.93 L (4.50-5.90) mil/mm3 Hgb 11.4 L (13.0-17.0) gm/dL Hct 34.5 L (39.0-51.0) % Plt Count 504 H (150-450) th/mm3 Neut % (Auto) 88.8 H (16.0-70.0) % Lymph % (Auto) 6.6 L (9.0-44.0) % Neut # (Auto) 17.5 H (1.8-7.7) th/mm3 PT 9.6 L (9.8-11.6) sec Potassium 5.6 H (3.5-5.1) meq/L Chloride 110 H (98-107) meq/L Carbon Dioxide 18.2 L (21.0-32.0) meq/L BUN 36 H (7-18) mg/dL Creatinine 3.07 H (0.60-1.30) mg/dL Estimated GFR 21 L (>89) mL/min POC Glucose (68-110) mg/dl Random Glucose (74-106) mg/dL Calcium (8.5-10.1) mg/dL Iron (65-175) mcg/dL % Saturation (20-50) % Total Bilirubin (0.2-1.0) mg/dL AST 13 L (15-37) U/L Troponin I (0.02-0.05) ng/mL Albumin 3.2 L (3.4-5.0) g/dL Urine Clarity (Clear) Urine Occult Blood (Negative) Urine WBC (0-5) /hpf Urine Bacteria (None) /hpf Urine Mucus (Occasional) /lpf Hep B Core IgM Ab (Nonreactive) Hep C IgG Ab (Nonreactive) 12/28/17 12/28/17 12/28/17 Range/Units 05:25 09:10 10:45 WBC (4.0-11.0) th/mm3 RBC (4.50-5.90) mil/mm3 Hgb (13.0-17.0) gm/dL Hct (39.0-51.0) % Plt Count (150-450) th/mm3 Neut % (Auto) (16.0-70.0) % Lymph % (Auto) (9.0-44.0) % Neut # (Auto) (1.8-7.7) th/mm3 PT (9.8-11.6) sec Potassium 5.8 H (3.5-5.1) meq/L Chloride 110 H (98-107) meq/L Carbon Dioxide 19.4 L (21.0-32.0) meq/L BUN 36 H (7-18) mg/dL Creatinine 2.77 H (0.60-1.30) mg/dL Estimated GFR 23 L (>89) mL/min POC Glucose (68-110) mg/dl Random Glucose (74-106) mg/dL Calcium 8.1 L (8.5-10.1) mg/dL Iron (65-175) mcg/dL % Saturation (20-50) % Total Bilirubin (0.2-1.0) mg/dL AST (15-37) U/L Troponin I (0.02-0.05) ng/mL Albumin (3.4-5.0) g/dL Urine Clarity Cloudy H (Clear) Urine Occult Blood Small H (Negative) Urine WBC 21 H (0-5) /hpf Urine Bacteria Rare H (None) /hpf Urine Mucus Few H (Occasional) /lpf Hep B Core IgM Ab Reactive H (Nonreactive) Hep C IgG Ab Reactive H (Nonreactive) Short CBC 12/27/17 12/28/17 Range/Units 21:38 02:08 WBC 17.3 H 19.7 H (4.0-11.0) th/mm3 Hgb 11.2 L 11.4 L (13.0-17.0) gm/dL Hct 34.3 L 34.5 L (39.0-51.0) % Plt Count 542 H 504 H (150-450) th/mm3 BMP 12/27/17 12/28/17 12/28/17 21:38 02:08 10:45 Sodium 138 138 139 Potassium 5.0 5.6 H 5.8 H Chloride 108 H 110 H 110 H Carbon Dioxide 16.7 L 18.2 L 19.4 L BUN 33 H 36 H 36 H Creatinine 3.08 H 3.07 H 2.77 H Calcium 7.8 L 8.6 D 8.1 L Cardiac Enzymes 12/27/17 Range/Units 21:38 Troponin I Less than 0.02 L (0.02-0.05) ng/mL Liver Function 12/27/17 12/28/17 Range/Units 21:38 02:08 Total Bilirubin 0.1 L 0.2 (0.2-1.0) mg/dL AST 11 L 13 L (15-37) U/L ALT 18 19 (12-78) U/L Alkaline Phosphatase 101 109 (45-117) U/L Albumin 3.1 L 3.2 L (3.4-5.0) g/dL Urine 12/28/17 Range/Units 05:25 Urine Color Yellow (Yellw/Straw) Urine Clarity Cloudy H (Clear) Urine pH 5.0 (5.0-8.5) Ur Specific [place] 1.010 (1.002-1.035) Urine Protein 500 or greater (Neg-Trace) mg/dL Urine Glucose (UA) 50 (Negative) mg/dL - Imaging Impressions Head CT 12/27/17 21:35 CONCLUSION: 1. No acute intracranial abnormalities. Right maxillary and sphenoid sinusitis. . Hand X-Ray 12/27/17 22:41 CONCLUSION: Acute fracturing at the proximal aspect of the fourth and fifth proximal phalanges. Wrist X-Ray 12/27/17 22:41 CONCLUSION: Fractures at the proximal aspects of the fourth and fifth proximal phalanges. Chest X-Ray 12/27/17 23:19 CONCLUSION: No acute cardiopulmonary process. Chest CT 12/28/17 08:34 CONCLUSION: 1. No acute abnormality is identified to explain the shortness of breath. Very mild emphysematous changes are appreciated. 2. Nonspecific 4.1 cm masslike structure posterior to the medial left clavicle. Given the location adjacent to the sternoclavicular joint and I believe this may represent a hypertrophic synovial process related to a degenerative process. This causing a chronic erosion on the posterior aspect of the medial clavicle. Suggest correlating for any pain in this area. This would ideally be further characterized with elective sternoclavicular joint focused MRI. 3. There is a smooth 8mm nodule in the left upper lobe. Fleischner Society recommendations for a high risk patient suggest follow-up chest CT in approximately 3-[address] 12/28/17 08:35 CONCLUSION: No acute abnormality is identified within the pelvis. Caprini VTE Risk Assessment Caprini VTE Risk Assessment: Moderate/High Risk (score >= 2) Caprini Risk Assessment Model: Point Value = 1 Point Value = 2 Point Value = 3 Point Value = 5 Age 41-60 Minor surgery BMI > 25 kg/m2 Swollen legs Varicose veins or History of unexplained or recurrent spontaneous Oral contraceptives or hormone replacement Sepsis (< 1 month) Serious lung disease, including pneumonia (< 1 month) Abnormal pulmonary function Acute myocardial infarction Congestive heart failure (< 1 month) History of inflammatory bowel disease Medical patient at bed rest Age 61-74 Arthroscopic surgery Major open surgery (> 45 min) Laparoscopic surgery (> 45 min) Malignancy Confined to bed (> 72 hours) Immobilizing plaster cast Central venous access Age >= 75 History of VTE Family history of VTE Factor V Leiden Prothrombin [id number] Lupus anticoagulant Anticardiolipin antibodies Elevated serum homocysteine Heparin-induced thrombocytopenia Other congenital or acquired thrombophilia Stroke (< 1 month) Elective arthroplasty Hip, pelvis, or leg fracture Acute spinal cord injury (< 1 month) Prophylaxis Regimen: Total Risk Factor Score Risk Level Prophylaxis Regimen 0-1 Low Early ambulation 2 Moderate Order ONE of the following: *Sequential Compression Device (SCD) *Heparin 5000 units SQ BID 3-4 Higher Order ONE of the following medications: *Heparin 5000 units SQ TID *Enoxaparin/Lovenox 40 mg SQ daily (WT < 150 kg, CrCl > 30 mL/min) *Enoxaparin/Lovenox 30 mg SQ daily (WT < 150 kg, CrCl > 10-29 mL/min) *Enoxaparin/Lovenox 30 mg SQ BID (WT < 150 kg, CrCl > 30 mL/min) AND/OR *Sequential Compression Device (SCD) 5 or more Highest Order ONE of the following medications: *Heparin 5000 units SQ TID (Preferred with Epidurals) *Enoxaparin/Lovenox 40 mg SQ daily (WT < 150 kg, CrCl > 30 mL/min) *Enoxaparin/Lovenox 30 mg SQ daily (WT < 150 kg, CrCl > 10-29 mL/min) *Enoxaparin/Lovenox 30 mg SQ BID (WT < 150 kg, CrCl > 30 mL/min) AND *Sequential Compression Device (SCD) Assessment and Plan - Assessment (1) Infected tooth Code(s): K04.7 - Periapical abscess without sinus Status: Acute Plan: Patient with infected right wisdom tooth. Patient reports that he was not able to pick up attendant his amoxicillin prescription today Due to KAYLA, will start patient on clindamycin 450 mg p.o. every 8 hours Will need to establish with a dentist outpatient (2) COPD (chronic obstructive pulmonary disease) Code(s): J44.9 - Chronic obstructive pulmonary disease, unspecified Status: Acute Plan: Patient currently not on home oxygen Patient reports being on home albuterol nebs as needed Wheezing noted throughout all lung rojas noted on physical exam. DuoNeb every 4 hours (3) Diabetes Code(s): E11.9 - Type 2 diabetes mellitus without complications Status: Acute Plan: Hold home Levemir, patient currently NPO after midnight for hand surgery Low dose SSI (4) Current smoker Code(s): F17.200 - Nicotine dependence, unspecified, uncomplicated Status: Acute Plan: 50 yr pack year smoking history Patient declined nicotine patch (5) Nutrition, metabolism, and development symptoms Code(s): R63.8 - Other symptoms and signs concerning food and fluid intake Status: Acute Plan: Diet: N.p.o. after midnight Fluids: NS 120mls/hr Cardiac telemetry, vitals every 4, monitor I's and O's DVT ppx: SCDs and ambulation - Assessment and Plan 67 yo M with: Unintentional weight loss: given complexity of clinical presentation will expedite work up with CT chest, abdomen, and pelvis, HIV, PSA, and hepatitis panel. not UTD with colonoscopy. KAYLA on CKD initial gentle fluids overnight not helpful, having trouble urinating with distended bladder on exam today. Will place carranza catheter, recheck BMP and urine electrolytes. Likely stop IVF if FeNa > 2% and trend with carranza. CT A/P pending Start flomax, suspect obstruction Syncope: Intial tele and cardiac markers unremarkable, aside from anisicoria, no focal deficits. Will get ECHO and continue tele Proximal phalanx fracture will immobilize 4th and 5th phalanx with dom taping or ulnar gutter splint and arrange follow up Hyperkalemia mild at 5.6 but T waves on ECG starting to peak, will resume insulin and albuterol, give kayexelate, and calcium and monitor. If continues to rise, will become more aggressive in management. HTN reasonable control, will hold ACEi and add PRNs Leukocytosis: not well explained, will get blood cultures, does have a dental abscess being treated, also starting malignancy work up. Anemia appears to be ACD, will qualify with ferritin Dispo: agree with resident H&P will require two midnights or more of inpatient work up DVT ppx: heparin FEN/GI: regular diet H&P: Quality - VTE Deep Vein Thrombosis/Pulmonary Embolism Present on Admission: No
[2017-12-28] MEDS: Sod Chloride 0.9% Inj 1,000 ML IV.CONT SCH (14:13)
--- NOTE | 2017-12-28 14:50 | MB ---
cc: Hema Roberts MD DATE: 12/28/2017 REASON FOR CONSULTATION: Left hand injury. HISTORY OF PRESENT ILLNESS: The patient is a 67-year-old left-hand dominant male admitted to the ED for evaluation of syncope. The patient had a syncopal episode yesterday and had a fall. He complained of pain over the left hand, had x-rays done, which showed fracture and Hand Surgery was consulted. The patient complains of pain and swelling over the left hand. Denies any open wounds. Denies any tingling, numbness. He also complains of worsening pain with range of motion of the fingers. The patient is being worked up for acute kidney failure as well. The patient gives history of COPD, diabetes, and high blood pressure. PHYSICAL EXAMINATION: GENERAL: Alert and oriented x3. EXTREMITIES: Examination of left hand reveals swelling of the hand and fingers. Tenderness noted over the proximal phalanx region of the little and the ring fingers. No gross deformity of the fingers noted. The patient is able to make almost a full fist, terminal degrees of flexion of the little and ring finger is associated with pain. He has full extension of the fingers. Terminal degrees of extension of the little and ring fingers were associated with pain. No rotational deformity of the finger noted. He has intact sensation distally. He has intact distal circulation. No tenderness noted over the wrist joint. Wrist range of motion is full and painless. LABORATORY DATA: His laboratory work was reviewed. He has a white count of 17.3, potassium of 5, and creatinine of 3. X-rays of the left hand shows comminuted fracture involving the proximal phalanx base with volar apex angulation, which appears to be mild involving the proximal phalanx of the little and ring fingers. CT scan is normal. ASSESSMENT: A 67-year-old male with epibasal fracture proximal phalanx base, left ring and little fingers. PLAN: The patient has epibasal fracture involving the proximal phalanx base, left ring and little fingers with combination and volar apex angulation. No evidence of pseudo clawing of the fingers noted. He is able to make almost a full fist and he has full extension of the fingers. This can be managed conservatively. A well-padded short arm volar and dorsal ulnar gutter splint was applied, keeping the wrist in slight extension and the MP joint in flexion The patient has been advised regarding limb elevation and finger range of motion exercises. The patient will maintain the splint for 3 weeks. He will follow up with me in the office for 3 weeks for removal of splint, x-rays, and a custom hand-based splint application. The patient has been advised regarding the splint tightness. Hema Roberts MD SE/irma , 12:03 PM , 12:11 PM
--- NOTE | 2017-12-28 16:05 | ECHRPT ---
Indication: CPHD CONCLUSIONS The left ventricular systolic function is normal with an estimated ejection fraction in the range of 60-65%. Normal left ventricular size. Wall thickness is normal. No regional wall motion abnormalities are present. Mild thickening of the mitral valve leaflets. The pulmonary valve is not well visualized. There is a small pericardial effusion present. No hemodynamically significant echocardiographic features were observed (no pre-tamponade physiology). BP: / HR: Rhythm: Sinus MEASUREMENTS (Male / Female) Normal Values Technical Quality:Good 2D ECHO LV Diastolic Diameter PLAX 4.8 cm 4.2 - 5.9 / 3.9 - 5.3 cm LV Systolic Diameter PLAX 3.2 cm IVS Diastolic Thickness 1.0 cm 0.6 - 1.0 / 0.6 - 0.9 cm LVPW Diastolic Thickness 1.0 cm 0.6 - 1.0 / 0.6 - 0.9 cm LV Relative Wall Thickness 0.4 RV Internal Dim ED PLAX 2.6 cm LVOT Diameter 2.0 cm LA Systolic Diameter LX 2.9 cm 3.0 - 4.0 / 2.7 - 3.8 cm LV Ejection Fraction MOD 4C 61.1 % LV Ejection Fraction 4C AL 62.3 % M-MODE Aortic Root Diameter MM 3.2 cm LA Systolic Diameter MM 2.9 cm LA Ao Ratio MM 0.9 AV Cusp Separation MM 1.9 cm DOPPLER AV Peak Velocity 148.0 cm/s AV Peak Gradient 8.8 mmHg LVOT Peak Velocity 101.0 cm/s LVOT Peak Gradient 4.1 mmHg AV Area Cont Eq pk 2.1 cm MV Area PHT 5.1 cm Mitral E Point Velocity 91.3 cm/s Mitral A Point Velocity 128.0 cm/s Mitral E to A Ratio 0.7 LV E' Lateral Velocity 7.3 cm/s Mitral E to LV E' Lateral Ratio 12.5 LV E' Septal Velocity 8.5 cm/s Mitral E to LV E' Septal Ratio 10.8 PV Peak Velocity 110.0 cm/s PV Peak Gradient 4.8 mmHg FINDINGS LEFT VENTRICLE The left ventricular systolic function is normal with an estimated ejection fraction in the range of 60-65%. Normal left ventricular size. Wall thickness is normal. No regional wall motion abnormalities are present. RIGHT VENTRICLE Normal right ventricular size and systolic function. LEFT ATRIUM The left atrial size is normal. RIGHT ATRIUM The right atrial size is normal. ATRIAL SEPTUM Normal atrial septal thickness without atrial level shunting by limited color doppler interrogation. AORTA The aortic root and proximal ascending aorta are normal in size on limited imaging. MITRAL VALVE Mild thickening of the mitral valve leaflets. AORTIC VALVE Trileaflet aortic valve. No aortic valve stenosis or regurgitation. TRICUSPID VALVE Structurally normal tricuspid valve. No tricuspid valve stenosis or regurgitation. PULMONARY VALVE The pulmonary valve is not well visualized. VESSELS The inferior vena cava is normal in size. PERICARDIUM There is a small pericardial effusion present. No hemodynamically significant echocardiographic features were observed (no pre-tamponade physiology). Graeme Bales MD (Electronically Signed) Final Date:28 December 2017 16:04
--- NOTE | 2017-12-28 17:07 | CT ---
EXAM DATE: 12/28/2017 12:00 AM EDT AGE/SEX: 67 years / Male INDICATIONS: Weight loss. CLINICAL DATA: This is the patient's initial encounter. Patient reports that signs and symptoms have been present for 1 day and indicates a pain score of 0/10. MEDICAL/SURGICAL HISTORY: Chronic obstructive pulmonary disease. Diabetes. Hypertension. None . ORAL CONTRAST: No oral contrast ingested. RADIATION DOSE: 6.84 CTDI (mGy) COMPARISON: No prior exams available for comparison. TECHNIQUE: Multiple contiguous axial images were obtained through the abdomen. Images were obtained using multiple row detector helical technique. No oral contrast ingested. Using automated exposure co ntrol and adjustment of the mA and/or kV according to patient size, radiation dose was kept as low as reasonably achievable to obtain optimal diagnostic quality images. DICOM format image data is avail able electronically for review and comparison. FINDINGS: The limited portion of lung base visualized is clear. The appearance of the liver, spleen, pancreas, adrenal glands and kidneys is within normal limits. The abdominal aorta is normal in caliber. There is no retroperitoneal adenopathy. The visualized loop s of small and large bowel in the upper abdomen are unremarkable. There is no free air or free fluid identified. The visualized bony structures demonstrate mild degenerative changes in the lumbar spine but are othe rwise intact. CONCLUSION: 1. No definite abnormality to explain the patient's weight loss identified. Electronically signed by: Preston Lopez MD 12/28/2017 3:11 PM EDT
[2017-12-29 05:32] LABS: Calcium 7.8 mg/dL (8.5-10.1); Carbon Dioxide 20.4 meq/L (21.0-32.0); Potassium 4.1 meq/L (3.5-5.1)
[2017-12-29] MEDS: Sod Chloride 0.9% Inj 1,000 ML IV.CONT SCH (08:46)
[2017-12-29] MEDS: Insulin Detemir Inj 1,000 UNIT/10 ML Vial SQ SCH ×2 (09:28→20:49)
[2017-12-29] MEDS: Senna/Docusate Sodium 8.6/50 MG Tablet PO SCH ×2 (09:29→20:48)
[2017-12-29] MEDS: FLUoxetine 20 MG Capsule PO SCH (09:29)
[2017-12-29] MEDS: amLODIPine 10 MG Tablet PO SCH (09:29)
[2017-12-29] MEDS: Insulin NovoLOG Aspart Correctional Sugar Inj SQ SCH ×4 (09:30→20:49)
[2017-12-29 10:23] LABS: Baso # (Auto) 0.1 th/mm3 (0.0-0.2); Baso % (Auto) 0.6 % (0.0-2.0); Eos # (Auto) 0.1 th/mm3 (0.0-0.4); Eos % (Auto) 0.9 % (0.0-4.0); Hematocrit 29.3 % (39.0-51.0); Hemoglobin 9.9 gm/dL (13.0-17.0); Lymph # (Auto) 1.7 th/mm3 (1.0-4.8); Lymph % (Auto) 13.2 % (9.0-44.0); Mean Corpuscular HGB Conc 33.7 % (32.0-36.0); Mean Corpuscular Hemoglobin 29.7 pg (27.0-34.0); Mean Corpuscular Volume 88.1 fL (80.0-100.0); Mean Platelet Volume 7.6 fL (7.0-11.0); Mono # (Auto) 0.7 th/mm3 (0.0-0.9); Mono % (Auto) 5.3 % (0.0-8.0); Neut # (Auto) 10.2 th/mm3 (1.8-7.7); Platelet Count 443 th/mm3 (150-450); Red Blood Count 3.33 mil/mm3 (4.50-5.90); White Blood Count 12.8 th/mm3 (4.0-11.0)
[2017-12-29 10:54] LABS: Chol/HDL Ratio 6.44 Ratio; HDL Cholesterol 28.1 mg/dL (40.0-60.0)
--- NOTE | 2017-12-29 13:10 | P.CONNP ---
<Ev Talamantes - Last Filed: 12/29/17 12:42> History of Present Illness Service: Nepphrology Consult date: 12/29/17 Requesting Physician: Fernando Hooks Reason for Consult: Acute kidney injury on chronic kidney disease Primary Care Provider: UNKNOWN Chief Complaint: "Passed out" History of Present Illness: Patient is a 67-year-old male with COPD, hypertension and diabetes for about 15 years, and arthritis. Presents to the ED for syncopal episode. He was in kitchen and passed out losing consciousness for couple of minutes. Witnessed fall. Nephrology is consulted for acute kidney injury with a creatinine of 2.98 and potassium level 4.1. On admission creatinine was as high as 3.08 and has had hyperkalemia. Potassium level yesterday at 5.8 requiring treatment. 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 Urine also noted with 500 or more protein. He has had a tooth ache being treated with amoxicillin and has been taking NSAIDS for discomfort. Patient reports some nausea, vomiting, and chronic shortness of breath. Denies any chest pain, no edema present. Has indwelling Douglas catheter for possible retention. [facility] - History History Provided By: Patient - Medical History Medical History: Medical History (Last Reviewed 12/28/17 @ 13:07 by Kat Oliver) COPD (chronic obstructive pulmonary disease) Diabetes HTN (hypertension) Osteoarthritis - Surgical History Surgical History: Surgical History (Last Reviewed 12/28/17 @ 13:07 by Kat Oliver) No pertinent past surgical history (Acute) - Family History Family History: Family History (Last Reviewed 12/28/17 @ 13:07 by Kat Oliver) Other No significant family history - Tobacco History Second Hand Smoke Exposure: Yes Tobacco Use In Past 30 Days: Yes Smoking Status: Current every day smoker Tobacco Type: Cigarettes - Alcohol History How Often Do You Have a Drink Containing Alcohol: 2 to 3 times a week - Substance Use History Substance History: No History of Abuse - Travel History Recent Travel in the [place] Within the Last 8 Weeks: No Recent Travel Out of the Country Within the Last 8 Weeks: No - Immunization History Tetanus Immunization: >5 Years Hx Influenza Vaccine This Season: No Medications and Allergies Allergies Allergy/AdvReac Type Severity Reaction Status Date / Time No Known Allergies Allergy Unknown Abdominal Uncoded 12/27/17 21:20 Pain Home Medications Medication Instructions Recorded Confirmed Type amlodipine [Norvasc] 10 mg PO DAILY 12/27/17 12/27/17 History fluoxetine [Prozac] 40 mg PO DAILY 12/27/17 12/27/17 History lisinopril 40 mg PO DAILY 12/27/17 12/27/17 History Active Medications: Active Medications Acetaminophen (Tylenol) 650 mg PO Q4H PRN PRN Reason: Pain1-2 Hydrocodone Bitart/Acetaminophen (Jber 7.5/325) 1 tab PO Q4H PRN PRN Reason: PAIN SCALE 6 TO 10 Hydrocodone Bitart/Acetaminophen (Jber 5/325) 1 tab PO Q4H PRN PRN Reason: PAIN SCALE 3 TO 5 Last Admin: 12/29/17 09:29 Dose: 1 tab Albuterol (Duoneb Neb ([facility])) 1 ampul NEB Q6HR WHILE AWAKE NEB [facility] Last Admin: 12/29/17 12:11 Dose: 1 ampul Amlodipine Besylate (Norvasc) 10 mg PO DAILY [facility] Last Admin: 12/29/17 09:29 Dose: 10 mg Clindamycin HCl (Cleocin) 450 mg PO Q8HR [facility] Last Admin: 12/29/17 06:23 Dose: 450 mg Clonidine HCl (Catapres) 0.1 mg PO Q6H PRN PRN Reason: SEE LABEL COMMENTS Last Admin: 12/29/17 03:54 Dose: 0.1 mg Dextrose (D50w Vial) 50 ml IV.PUSH UNSCH PRN PRN Reason: PER HYPOGLYCEMIA PROTOCOL Fluoxetine HCl (Prozac) 40 mg PO DAILY [facility] Last Admin: 12/29/17 09:29 Dose: 40 mg Glucagon (Glucagon Inj) 1 mg OTHER PRN PRN PRN Reason: for Hypoglycemia Protocol Sodium Chloride (Ns Inj) 1,000 mls @ 0 mls/hr IV.SIG BOLUS [facility] Insulin Aspart (Novolog Insulin Correctional Sugar Inj) 0 unit SQ ACHS [facility]; Protocol Last Admin: 12/29/17 09:30 Dose: 1 unit Insulin Detemir (Levemir Inj) 20 unit SQ HS [facility] Last Admin: 12/28/17 21:00 Dose: 20 unit Insulin Detemir (Levemir Inj) 25 unit SQ DAILY [facility] Last Admin: 12/29/17 09:28 Dose: 25 unit Naloxone HCl (Narcan Inj) 0.4 mg IV.PUSH UNSCH PRN PRN Reason: SEE LABEL COMMENTS Ondansetron HCl (Zofran Inj) 4 mg IV.PUSH Q6H PRN PRN Reason: NAUSEA Last Admin: 12/29/17 09:27 Dose: 4 mg Senna/Docusate Sodium (Beulah-Colace) 1 tab PO BID [facility] Last Admin: 12/29/17 09:29 Dose: 1 tab Tamsulosin HCl (Flomax) 0.4 mg PO DAILY [facility] Last Admin: 12/29/17 09:29 Dose: 0.4 mg Exam Vital signs: Vital Signs 12/28/17 13:56 12/28/17 16:00 12/28/17 19:18 Temperature 97.7 F Pulse Rate 90 104 H 99 H Respiratory Rate 17 18 18 Blood Pressure 189/89 H Pulse Oximetry 95 95 12/28/17 20:00 12/29/17 00:00 12/29/17 04:00 Temperature 97.8 F 98.2 F 98.3 F Pulse Rate 101 H 97 H 98 H Respiratory Rate 16 17 17 Blood Pressure 189/76 H 184/86 H 186/88 H Pulse Oximetry 99 96 97 12/29/17 11:46 12/29/17 12:11 Temperature Pulse Rate 98 H Respiratory Rate 16 18 Blood Pressure Pulse Oximetry Intake & Output 12/28/17 12/29/17 12/29/17 18:59 06:59 18:59 Intake Total 1100 / 1100 1200 / 1200 1000 / 1000 Output Total 1500 / 1500 1800 / 1800 Balance -400 / -400 -600 / -600 1000 / 1000 Weight 77.111 kg Intake: IV 1100 / 1100 1000 / 1000 D5W/Normal Saline Inj 1,000 ML 300 / 300 @ 120 mls/hr IV.CONT .Q8H20M [facility] Rx#:[id number] NS Inj 1,000 ML @ 60 mls/hr IV. 800 / 800 1000 / 1000 CONT .[id number] [facility] Rx#:[id number] Oral 1200 / 1200 Output: Urine 1800 / 1800 Urine Amount (Catheter) 1500 / 1500 Indwelling Urethral Catheter 1500 / 1500 Other: Date of Last Bowel Movement 12/27/17 Narrative: GENERAL: Alert and oriented SKIN: Warm and dry. HEAD: Normocephalic. EYES: No scleral icterus. No injection or drainage. NECK: Supple, trachea midline. No JVD or lymphadenopathy. CARDIOVASCULAR: Regular rate and rhythm without murmurs, gallops, or rubs. RESPIRATORY: Breath sounds equal bilaterally. No accessory muscle use. GASTROINTESTINAL: Abdomen soft, non-tender, nondistended. MUSCULOSKELETAL: No cyanosis, or edema. BACK: Nontender without obvious deformity. No CVA tenderness. Results - Lab Results 12/29/17 09:40 12/29/17 04:18 Most recent lab results Calcium 7.8 mg/dL (8.5-10.1) L 12/29/17 04:18 Magnesium 1.8 mg/dL (1.5-2.5) 12/27/17 21:38 Assessment and Plan - Assessment (1) Acute kidney injury Code(s): N17.9 - Acute kidney failure, unspecified Status: Acute Plan: Acute kidney injury with a creatinine of 2.98 and potassium level 4.1. On admission creatinine was as high as 3.08 and has had hyperkalemia. Potassium level yesterday at 5.8 requiring treatment. Acute kidney injury with FeNA of 2.49 % suggestive of ATN possibly from infection. Baseline creatinine is not available Creatinine on 04/26/16 was at 1.70 so has past medical history of chronic kidney disease most likely from diabetes or hypertensive disease. Urine also noted with 500 or more protein. Plan Serology has been ordered complements normal, JOCELYNN and ANCA pending Hep B and C reactive Avoid nephrotoxins including NSAIDS, IV contrast, and aminoglycosides Will order 24 hour urine for protein Continue to hold lisinopril Will change diet to include low potassium (2) HTN (hypertension) Code(s): I10 - Essential (primary) hypertension Status: Acute Plan: Hypertensive with SBP in the 180's On amlodipine with PRN available Will add hydralazine and titrate as needed (3) Diabetes Code(s): E11.9 - Type 2 diabetes mellitus without complications Status: Acute Plan: Blood sugars elevated in the 200's Recommend to Maintain blood sugars between 140 mg/dl to 180 mg/dl while hospitalized. (4) Anemia Code(s): D64.9 - Anemia, unspecified Status: Acute Plan: HGB stable at 9.9 Iron sat at 15, will check ferritin level (5) Current smoker Code(s): F17.200 - Nicotine dependence, unspecified, uncomplicated Status: Acute Plan: tobacco cessation recommended to preserve kidney function. <Gen Marie - Last Filed: 12/31/17 18:08> History of Present Illness Primary Care Provider: UNKNOWN [facility] - Medical History Medical History: Medical History (Last Reviewed 12/28/17 @ 13:07 by Kat Oliver) COPD (chronic obstructive pulmonary disease) Diabetes HTN (hypertension) Osteoarthritis - Surgical History Surgical History: Surgical History (Last Reviewed 12/28/17 @ 13:07 by Kat Oliver) No pertinent past surgical history (Acute) - Family History Family History: Family History (Last Reviewed 12/28/17 @ 13:07 by Kat Oliver) Other No significant family history Medications and Allergies Active Medications: Active Medications Acetaminophen (Tylenol) 650 mg PO Q4H PRN PRN Reason: Pain1-2 Hydrocodone Bitart/Acetaminophen (Jber 7.5/325) 1 tab PO Q4H PRN PRN Reason: PAIN SCALE 6 TO 10 Last Admin: 12/29/17 20:48 Dose: 1 tab Hydrocodone Bitart/Acetaminophen (Jber 5/325) 1 tab PO Q4H PRN PRN Reason: PAIN SCALE 3 TO 5 Last Admin: 12/31/17 17:34 Dose: 1 tab Albuterol (Duoneb Neb ([facility])) 1 ampul NEB Q6HR WHILE AWAKE NEB [facility] Last Admin: 12/31/17 12:06 Dose: Not Given Amlodipine Besylate (Norvasc) 10 mg PO DAILY [facility] Last Admin: 12/31/17 09:02 Dose: 10 mg Aspirin (Aspirin) 325 mg PO DAILY [facility] Last Admin: 12/31/17 10:08 Dose: 325 mg Atorvastatin Calcium (Lipitor) 80 mg PO HS [facility] Clindamycin HCl (Cleocin) 450 mg PO Q8HR [facility] Last Admin: 12/31/17 15:02 Dose: 450 mg Clonidine HCl (Catapres) 0.1 mg PO Q6H PRN PRN Reason: SEE LABEL COMMENTS Last Admin: 12/29/17 03:54 Dose: 0.1 mg Dextrose (D50w Vial) 50 ml IV.PUSH UNSCH PRN PRN Reason: PER HYPOGLYCEMIA PROTOCOL Fluoxetine HCl (Prozac) 40 mg PO DAILY [facility] Last Admin: 12/31/17 09:02 Dose: 40 mg Glucagon (Glucagon Inj) 1 mg OTHER PRN PRN PRN Reason: for Hypoglycemia Protocol Hydralazine HCl (Apresoline) 100 mg PO TID [facility] Last Admin: 12/31/17 17:35 Dose: 100 mg Sodium Chloride (Ns Inj) 1,000 mls @ 0 mls/hr IV.SIG BOLUS [facility] Insulin Aspart (Novolog Insulin Correctional Sugar Inj) 0 unit SQ ACHS [facility]; Protocol Last Admin: 12/31/17 17:34 Dose: 1 unit Insulin Detemir (Levemir Inj) 25 unit SQ DAILY [facility] Last Admin: 12/31/17 09:04 Dose: 25 unit Insulin Detemir (Levemir Inj) 15 unit SQ HS [facility] Last Admin: 12/30/17 21:17 Dose: 15 unit Naloxone HCl (Narcan Inj) 0.4 mg IV.PUSH UNSCH PRN PRN Reason: SEE LABEL COMMENTS Ondansetron HCl (Zofran Inj) 4 mg IV.PUSH Q6H PRN PRN Reason: NAUSEA Last Admin: 12/31/17 15:02 Dose: 4 mg Polyethylene Glycol (Miralax) 17 gm PO TID PRN PRN Reason: CONSTIPATION Senna/Docusate Sodium (Beulah-Colace) 1 tab PO BID [facility] Last Admin: 12/31/17 09:02 Dose: 1 tab Tamsulosin HCl (Flomax) 0.4 mg PO DAILY [facility] Last Admin: 12/31/17 09:03 Dose: 0.4 mg Exam Vital signs: Vital Signs 12/30/17 19:31 12/30/17 20:00 12/31/17 00:00 Temperature 98.2 F 98.6 F Pulse Rate 99 H 100 H 99 H Respiratory Rate 21 18 18 Blood Pressure 159/70 H 164/76 H Pulse Oximetry 96 96 12/31/17 04:00 12/31/17 08:00 12/31/17 09:30 Temperature 98.0 F 98.2 F Pulse Rate 96 H 85 91 H Respiratory Rate 18 18 15 Blood Pressure 155/86 H 151/72 H Pulse Oximetry 96 95 12/31/17 09:48 12/31/17 12:00 12/31/17 13:35 Temperature 98.9 F Pulse Rate 94 H Respiratory Rate 18 18 18 Blood Pressure 177/79 H Pulse Oximetry 94 L 12/31/17 16:00 Temperature 97.3 F L Pulse Rate 93 H Respiratory Rate 17 Blood Pressure 173/77 H Pulse Oximetry 93 L Intake & Output 12/30/17 12/31/17 12/31/17 18:59 06:59 18:59 Intake Total 105 / 105 Output Total 750 / 750 Balance 105 / 105 -750 / -750 Intake: IV 105 / 105 Venofer Inj 100 MG In NS Inj 105 / 105 100 ML @ 105 mls/hr IV.SIG ONCE ONE Rx#:[id number] Output: Urine 750 / 750 Other: Date of Last Bowel Movement 12/27/17 12/27/17 01/26/18 Results - Lab Results 12/31/17 05:30 12/31/17 05:30 Most recent lab results Calcium 8.2 mg/dL (8.5-10.1) L 12/31/17 05:30 Phosphorus 4.8 mg/dL (2.5-4.9) 12/30/17 06:51 Magnesium 1.8 mg/dL (1.5-2.5) 12/27/17 21:38 Ur Total Protein 24 Hr 3638 mg/24hr (0-150) H 12/31/17 05:52 Assessment and Plan - Assessment (1) Acute kidney injury Code(s): N17.9 - Acute kidney failure, unspecified Status: Acute Plan: Patient seen and examined, agree with above. Has Chronic kidney disease and has proteinuria. Serology to follow. (2) HTN (hypertension) Code(s): I10 - Essential (primary) hypertension Status: Acute (3) Diabetes Code(s): E11.9 - Type 2 diabetes mellitus without complications Status: Acute (4) Anemia Code(s): D64.9 - Anemia, unspecified Status: Acute (5) Current smoker Code(s): F17.200 - Nicotine dependence, unspecified, uncomplicated Status: Acute
--- NOTE | 2017-12-29 13:38 | US ---
EXAM DATE: 12/29/2017 12:00 AM EDT AGE/SEX: 67 years / Male INDICATIONS: Increased Bun and Creatinine. CLINICAL DATA: This is the patient's initial encounter. Patient reports that signs and symptoms have been present for 1 day and indicates a pain score of 0/10. MEDICAL/SURGICAL HISTORY: . Chronic obstructive pulmonary disease. Diabetes. Hypertension. Non e. COMPARISON: [facility] [place], CT ABDOMEN W/O CONTRAST, 12/28/2017. . MEASUREMENTS: Right Kidney:__11.4 x 6.0 x 5.8 cm Left Kidney:__11.2 x 4.5 x 7.0 cm FINDINGS: Right Kidney: Mild increased echogenicity with normal cortical thickness. No mass or hydronephrosis. Left Kidney: Mild increased echogenicity within normal cortical thickness. No mass or hydronephrosis. Bladder: Douglas catheter is present. Bladder decompressed. Other: None. CONCLUSION: 1. Mild increased echogenicity of the kidneys suggesting medical renal disease. There is no hydronep hrosis. 2. Urinary bladder is decompressed with a Douglas catheter in place. Electronically signed by: Gm Gan MD 12/29/2017 1:36 PM EDT
--- NOTE | 2017-12-29 13:55 | P.PNFP ---
Subjective Interval history: 67-year-old male with COPD, hypertension, and diabetes who presented after a syncopal episode. He also had emesis over the last couple months. Serology shows he has been exposed to hepatitis B and hepatitis C at some point , viral loads are pending. He also has a dental infection being treated with clindamycin and a hand fracture sustained during his syncopal episode that is now splinted. No acute events overnight. He has no new complaints this morning. <Fernando Hooks - 12/29/17 13:55> Results - Labs Result diagrams: 12/29/17 09:40 12/29/17 04:18 <Kayden Rinaldi - 12/29/17 15:27> Abnormal lab results 12/28/17 12/28/17 12/29/17 Range/Units 17:13 20:49 04:18 WBC (4.0-11.0) th/mm3 RBC (4.50-5.90) mil/mm3 Hgb (13.0-17.0) gm/dL Hct (39.0-51.0) % Neut % (Auto) (16.0-70.0) % Neut # (Auto) (1.8-7.7) th/mm3 Chloride 112 H (98-107) meq/L Carbon Dioxide 20.4 L (21.0-32.0) meq/L BUN 37 H (7-18) mg/dL Creatinine 2.95 H (0.60-1.30) mg/dL Estimated GFR 22 L (>89) mL/min POC Glucose 240 H 292 H (68-110) mg/dl Random Glucose 116 H (74-106) mg/dL Calcium 7.8 L (8.5-10.1) mg/dL Triglycerides (42-150) mg/dL LDL Cholesterol, Calc (0-99) mg/dL HDL Cholesterol (40.0-60.0) mg/dL 12/29/17 12/29/17 12/29/17 Range/Units 08:54 09:40 09:40 WBC 12.8 H (4.0-11.0) th/mm3 RBC 3.33 L (4.50-5.90) mil/mm3 Hgb 9.9 L (13.0-17.0) gm/dL Hct 29.3 L (39.0-51.0) % Neut % (Auto) 80.0 H (16.0-70.0) % Neut # (Auto) 10.2 H (1.8-7.7) th/mm3 Chloride (98-107) meq/L Carbon Dioxide (21.0-32.0) meq/L BUN (7-18) mg/dL Creatinine (0.60-1.30) mg/dL Estimated GFR (>89) mL/min POC Glucose 196 H (68-110) mg/dl Random Glucose (74-106) mg/dL Calcium (8.5-10.1) mg/dL Triglycerides 182 H (42-150) mg/dL LDL Cholesterol, Calc 117 H (0-99) mg/dL HDL Cholesterol 28.1 L (40.0-60.0) mg/dL 12/29/17 Range/Units 11:44 WBC (4.0-11.0) th/mm3 RBC (4.50-5.90) mil/mm3 Hgb (13.0-17.0) gm/dL Hct (39.0-51.0) % Neut % (Auto) (16.0-70.0) % Neut # (Auto) (1.8-7.7) th/mm3 Chloride (98-107) meq/L Carbon Dioxide (21.0-32.0) meq/L BUN (7-18) mg/dL Creatinine (0.60-1.30) mg/dL Estimated GFR (>89) mL/min POC Glucose 223 H (68-110) mg/dl Random Glucose (74-106) mg/dL Calcium (8.5-10.1) mg/dL Triglycerides (42-150) mg/dL LDL Cholesterol, Calc (0-99) mg/dL HDL Cholesterol (40.0-60.0) mg/dL Short CBC 12/29/17 Range/Units 09:40 WBC 12.8 H (4.0-11.0) th/mm3 Hgb 9.9 L (13.0-17.0) gm/dL Hct 29.3 L (39.0-51.0) % Plt Count 443 (150-450) th/mm3 BMP 12/29/17 04:18 Sodium 143 Potassium 4.1 D Chloride 112 H Carbon Dioxide 20.4 L BUN 37 H Creatinine 2.95 H Calcium 7.8 L <Kayden Rinaldi - 12/29/17 15:27> Abnormal lab results 12/28/17 12/28/17 12/29/17 Range/Units 17:13 20:49 04:18 WBC (4.0-11.0) th/mm3 RBC (4.50-5.90) mil/mm3 Hgb (13.0-17.0) gm/dL Hct (39.0-51.0) % Neut % (Auto) (16.0-70.0) % Neut # (Auto) (1.8-7.7) th/mm3 Chloride 112 H (98-107) meq/L Carbon Dioxide 20.4 L (21.0-32.0) meq/L BUN 37 H (7-18) mg/dL Creatinine 2.95 H (0.60-1.30) mg/dL Estimated GFR 22 L (>89) mL/min POC Glucose 240 H 292 H (68-110) mg/dl Random Glucose 116 H (74-106) mg/dL Calcium 7.8 L (8.5-10.1) mg/dL Triglycerides (42-150) mg/dL LDL Cholesterol, Calc (0-99) mg/dL HDL Cholesterol (40.0-60.0) mg/dL 12/29/17 12/29/17 12/29/17 Range/Units 08:54 09:40 09:40 WBC 12.8 H (4.0-11.0) th/mm3 RBC 3.33 L (4.50-5.90) mil/mm3 Hgb 9.9 L (13.0-17.0) gm/dL Hct 29.3 L (39.0-51.0) % Neut % (Auto) 80.0 H (16.0-70.0) % Neut # (Auto) 10.2 H (1.8-7.7) th/mm3 Chloride (98-107) meq/L Carbon Dioxide (21.0-32.0) meq/L BUN (7-18) mg/dL Creatinine (0.60-1.30) mg/dL Estimated GFR (>89) mL/min POC Glucose 196 H (68-110) mg/dl Random Glucose (74-106) mg/dL Calcium (8.5-10.1) mg/dL Triglycerides 182 H (42-150) mg/dL LDL Cholesterol, Calc 117 H (0-99) mg/dL HDL Cholesterol 28.1 L (40.0-60.0) mg/dL 12/29/17 Range/Units 11:44 WBC (4.0-11.0) th/mm3 RBC (4.50-5.90) mil/mm3 Hgb (13.0-17.0) gm/dL Hct (39.0-51.0) % Neut % (Auto) (16.0-70.0) % Neut # (Auto) (1.8-7.7) th/mm3 Chloride (98-107) meq/L Carbon Dioxide (21.0-32.0) meq/L BUN (7-18) mg/dL Creatinine (0.60-1.30) mg/dL Estimated GFR (>89) mL/min POC Glucose 223 H (68-110) mg/dl Random Glucose (74-106) mg/dL Calcium (8.5-10.1) mg/dL Triglycerides (42-150) mg/dL LDL Cholesterol, Calc (0-99) mg/dL HDL Cholesterol (40.0-60.0) mg/dL Short CBC 12/29/17 Range/Units 09:40 WBC 12.8 H (4.0-11.0) th/mm3 Hgb 9.9 L (13.0-17.0) gm/dL Hct 29.3 L (39.0-51.0) % Plt Count 443 (150-450) th/mm3 BMP 12/29/17 04:18 Sodium 143 Potassium 4.1 D Chloride 112 H Carbon Dioxide 20.4 L BUN 37 H Creatinine 2.95 H Calcium 7.8 L <Fernando Hooks - 12/29/17 13:55> - Imaging Impressions Abdomen CT 12/28/17 00:00 CONCLUSION: 1. No definite abnormality to explain the patient's weight loss identified. Abdomen/Bladder Ultrasound 12/29/17 00:00 CONCLUSION: 1. Mild increased echogenicity of the kidneys suggesting medical renal disease. There is no hydronephrosis. 2. Urinary bladder is decompressed with a Carranza catheter in place. <Kayden Rinaldi - 12/29/17 15:27> Impressions Abdomen CT 12/28/17 00:00 CONCLUSION: 1. No definite abnormality to explain the patient's weight loss identified. <Fernando Hooks - 12/29/17 13:55> Physical Exam Vital signs: Vital Signs 12/28/17 16:00 12/28/17 19:18 12/28/17 20:00 Temperature 97.7 F 97.8 F Pulse Rate 104 H 99 H 101 H Respiratory Rate 18 18 16 Blood Pressure 189/89 H 189/76 H Pulse Oximetry 95 95 99 12/29/17 00:00 12/29/17 04:00 12/29/17 08:00 Temperature 98.2 F 98.3 F 98.3 F Pulse Rate 97 H 98 H 89 Respiratory Rate 17 17 18 Blood Pressure 184/86 H 186/88 H 147/67 H Pulse Oximetry 96 97 92 L 12/29/17 11:46 12/29/17 12:00 12/29/17 12:11 Temperature 98.1 F Pulse Rate 91 H 98 H Respiratory Rate 16 18 18 Blood Pressure 140/77 Pulse Oximetry 93 L Intake & Output 12/28/17 12/29/17 12/29/17 18:59 06:59 18:59 Intake Total 1100 / 1100 1200 / 1200 1000 / 1000 Output Total 1500 / 1500 1800 / 1800 Balance -400 / -400 -600 / -600 1000 / 1000 Weight 77.111 kg Intake: IV 1100 / 1100 1000 / 1000 D5W/Normal Saline Inj 1,000 ML 300 / 300 @ 120 mls/hr IV.CONT .Q8H20M RE Rx#:[id number] NS Inj 1,000 ML @ 60 mls/hr IV. 800 / 800 1000 / 1000 CONT .[id number] [facility] Rx#:[id number] Oral 1200 / 1200 Output: Urine 1800 / 1800 Urine Amount (Catheter) 1500 / 1500 Indwelling Urethral Catheter 1500 / 1500 Other: Date of Last Bowel Movement 12/27/17 <Kayden Rinaldi - 12/29/17 15:27> Vital Signs 12/28/17 13:56 12/28/17 16:00 12/28/17 19:18 Temperature 97.7 F Pulse Rate 90 104 H 99 H Respiratory Rate 17 18 18 Blood Pressure 189/89 H Pulse Oximetry 95 95 12/28/17 20:00 12/29/17 00:00 12/29/17 04:00 Temperature 97.8 F 98.2 F 98.3 F Pulse Rate 101 H 97 H 98 H Respiratory Rate 16 17 17 Blood Pressure 189/76 H 184/86 H 186/88 H Pulse Oximetry 99 96 97 12/29/17 11:46 12/29/17 12:11 Temperature Pulse Rate 98 H Respiratory Rate 16 18 Blood Pressure Pulse Oximetry Intake & Output 12/28/17 12/29/17 12/29/17 18:59 06:59 18:59 Intake Total 1100 / 1100 1200 / 1200 1000 / 1000 Output Total 1500 / 1500 1800 / 1800 Balance -400 / -400 -600 / -600 1000 / 1000 Weight 77.111 kg Intake: IV 1100 / 1100 1000 / 1000 D5W/Normal Saline Inj 1,000 ML 300 / 300 @ 120 mls/hr IV.CONT .Q8H20M RE Rx#:[id number] NS Inj 1,000 ML @ 60 mls/hr IV. 800 / 800 1000 / 1000 CONT .[id number] RE Rx#:[id number] Oral 1200 / 1200 Output: Urine 1800 / 1800 Urine Amount (Catheter) 1500 / 1500 Indwelling Urethral Catheter 1500 / 1500 Other: Date of Last Bowel Movement 12/27/17 <Fernando Hooks - 12/29/17 13:55> Narrative: General: Well-developed, alert, and in no acute distress. Appears stated age HEENT: moist mucous membranes, poor dentition Neck: Supple, trachea midline Cardiac: Regular rate and rhythm without murmurs Pulmonary: Non-labored breathing. Lungs clear to auscultation bilaterally with good air movement Abdomen: Normal bowel sounds, soft and non-tender without rebound or guarding Extremities: No edema, 2+ pedal pulses, capillary refill less than 2 seconds <Fernando Hooks - 12/29/17 13:55> - Urinary Catheter Management Indwelling Urethral Catheter Cath placed during this visit: no <Kayden Rinaldi - 12/29/17 15:27> yes <Fernando Hooks - 12/29/17 13:55> Reason for continuing: Acute urinary retention <Fernando Hooks - 13:55> Insertion date: 12/28/17 <Fernando Hooks 12/29/17 13:55> Insertion time: 09:20 <Fernando Hooks 12/29/17 13:55> Assessment and Plan - Assessment (1) Acute kidney injury Code(s): N17.9 - Acute kidney failure, unspecified Status: Acute (2) Abnormal weight loss Code(s): R63.4 - Abnormal weight loss Status: Acute (3) COPD (chronic obstructive pulmonary disease) Code(s): J44.9 - Chronic obstructive pulmonary disease, unspecified Status: Acute (4) Diabetes Code(s): E11.9 - Type 2 diabetes mellitus without complications Status: Acute (5) Current smoker Code(s): F17.200 - Nicotine dependence, unspecified, uncomplicated Status: Acute (6) Nutrition, metabolism, and development symptoms Code(s): R63.8 - Other symptoms and signs concerning food and fluid intake Status: Acute (7) Infected tooth Code(s): K04.7 - Periapical abscess without sinus Status: Acute <BradfordtainaKayden Groves 12/29/17 15:27> (1) Acute kidney injury Code(s): N17.9 - Acute kidney failure, unspecified Status: Acute (2) Abnormal weight loss Code(s): R63.4 - Abnormal weight loss Status: Acute (3) COPD (chronic obstructive pulmonary disease) Code(s): J44.9 - Chronic obstructive pulmonary disease, unspecified Status: Acute (4) Diabetes Code(s): E11.9 - Type 2 diabetes mellitus without complications Status: Acute (5) Current smoker Code(s): F17.200 - Nicotine dependence, unspecified, uncomplicated Status: Acute (6) Nutrition, metabolism, and development symptoms Code(s): R63.8 - Other symptoms and signs concerning food and fluid intake Status: Acute (7) Infected tooth Code(s): K04.7 - Periapical abscess without sinus Status: Acute <Fernando Hooks 12/29/17 13:28> - Assessment and Plan Patient is a 67-year-old male who presented with a syncopal episode, 20 pound weight loss, and KAYLA. Serologies were positive for hepatitis C exposure and recent hepatitis B exposure, viral loads are pending. Continues to have some vomiting but is tolerating p.o. well. Unintentional weight loss: -CT chest, abdomen, and pelvis without contrast were normal -HIV negative -Positive for hepatitis C exposure and for recent hepatitis B exposure. Viral loads are pending. -HIV, PSA, and hepatitis panel. not UTD with colonoscopy. KAYLA on CKD -Creatinine today of 2.95. Creatinine of 1.7 in April may be his baseline, however this is unclear. -He was initially started on fluids in addition to his p.o. intake. This did not show any improvement with his creatinine. He had difficulty urinating yesterday, Carranza was placed. -Nephrology was consulted, appreciate recommendations -FeNa of 2.49, likely not due to prerenal disease -Tamsulosin started for possible obstruction. -Significant proteinuria -Complement normal, JOCELYNN and ANCA pending, 24-hour urine protein pending -Continue to hold lisinopril -Avoid nephrotoxic agents Syncope: Initial telemetry and cardiac markers unremarkable, aside from anisicoria, no focal neurologic deficits. Echo: No hemodynamically significant echocardiographic features were observed Hyperkalemia -High of 5.8. Insulin, albuterol, kayexalate and calculate calcium gluconate were given -4.1 today Diabetes: Blood sugar from 196-240 in the last 24 hours 25 units Levemir daily Received 12 units of sliding scale insulin last 24 hours COPD: Patient currently not on home oxygen Patient reports being on home albuterol nebs as needed Wheezing noted throughout all lung rojas noted on physical exam. DuoNeb every 4 hours HTN Hold lisinopril Continue home medication amlodipine Hydralazine 25 mg p.o. 3 times daily added by nephrology Leukocytosis: Blood and urine cultures pending, no growth in 1 day Dental infection: Clindamycin 450 mg p.o. every 8 hours Proximal phalanx fracture -Seen by hand surgery, splint in place -Follow-up 3 weeks as an outpatient Fluids: Adequate p.o. intake Electrolytes: monitor and replete as needed Nutrition: Renal diet with low potassium GI prophylaxis: not indicated VTE prophylaxis: Lovenox <Fernando Hooks - 12/29/17 13:55> - Attending Attestation The exam, history, and the medical decision-making described in the above note were completed with the assistance of the resident physician. I reviewed and agree with the findings presented. I attest that I had a [id number] encounter with the patient on the same day, and personally performed and documented my assessment and findings in the medical record. no complaints today. no edema or changes on exam. Awaiting follow up on hepatitis viral loads. Symptoms may be explained now by hepatitis and following kidney disease, started work up for hepatitis related nephropathies and ordered nephrology consult. Expect to remove carranza tomorrow after 24 hr urine protein collection to see how he can void on his own. Hand surgery will see outpatient and will discuss with GI tomorrow re: hepatitis. <Kayden Rinaldi - 12/29/17 15:27>
[2017-12-29] MEDS ORDERED: hydrALAZINE 25 MG Tablet PO SCH (18:00)
[2017-12-30 07:21] LABS: Baso # (Auto) 0.1 th/mm3 (0.0-0.2); Baso % (Auto) 0.7 % (0.0-2.0); Eos # (Auto) 0.2 th/mm3 (0.0-0.4); Eos % (Auto) 1.7 % (0.0-4.0); Hematocrit 29.4 % (39.0-51.0); Hemoglobin 9.7 gm/dL (13.0-17.0); Lymph % (Auto) 16.7 % (9.0-44.0); Mean Corpuscular Hemoglobin 28.9 pg (27.0-34.0); Mean Corpuscular Volume 87.6 fL (80.0-100.0); Mean Platelet Volume 7.4 fL (7.0-11.0); Mono # (Auto) 0.8 th/mm3 (0.0-0.9); Mono % (Auto) 6.6 % (0.0-8.0); Neut # (Auto) 8.7 th/mm3 (1.8-7.7); Neut % (Auto) 74.3 % (16.0-70.0); Platelet Count 435 th/mm3 (150-450); Red Blood Count 3.36 mil/mm3 (4.50-5.90); Red Cell Distribution Width 14.9 % (11.6-17.2); White Blood Count 11.7 th/mm3 (4.0-11.0)
[2017-12-30 07:48] LABS: Albumin 2.8 g/dL (3.4-5.0); Anion Gap 8 meq/L (5-15); Aspartate Aminotransferase 14 U/L (15-37); Blood Urea Nitrogen 36 mg/dL (7-18); Calcium 7.9 mg/dL (8.5-10.1); Carbon Dioxide 23.3 meq/L (21.0-32.0); Chloride 113 meq/L (98-107); Glomerular Filtration Rate 24 mL/min (>89); Glucose,Random 55 mg/dL (74-106); Potassium 4.2 meq/L (3.5-5.1); Sodium 144 meq/L (136-145)
[2017-12-30 07:55] LABS: Alanine Aminotransferase 18 U/L (12-78); Alkaline Phosphatase 88 U/L (45-117); Ferritin 225 ng/mL (26-388); Phosphorus 4.8 mg/dL (2.5-4.9); Total Protein 6.1 g/dL (6.4-8.2)
--- NOTE | 2017-12-30 08:59 | P.PNFP ---
Subjective Interval history: No acute events overnight. Patient did have a low sugar of 55 this morning at 8 :14. After receiving juice, blood sugar increased to 110. Patient states that he was asymptomatic. Patient has no complaints this morning. PT noted that patient had gait instability and was leaning. Patient states that he has had leg weakness for the past several days. No other neuro deficits. Will consider further imaging and neurology consult. 24-hour urine protein collection started at 6 AM this morning. Patient denies fevers, chest pain, shortness of breath, nausea vomiting, abdominal pain. <Uma Lucio T - 12/30/17 09:22> Results - Labs Result diagrams: 12/30/17 06:51 12/30/17 06:51 <Kayden Rinaldi - 12/30/17 17:57> Abnormal lab results 12/29/17 12/30/17 12/30/17 Range/Units 20:43 06:51 06:51 WBC 11.7 H (4.0-11.0) th/mm3 RBC 3.36 L (4.50-5.90) mil/mm3 Hgb 9.7 L (13.0-17.0) gm/dL Hct 29.4 L (39.0-51.0) % Neut % (Auto) 74.3 H (16.0-70.0) % Neut # (Auto) 8.7 H (1.8-7.7) th/mm3 Chloride 113 H (98-107) meq/L BUN 36 H (7-18) mg/dL Creatinine 2.69 H (0.60-1.30) mg/dL Estimated GFR 24 L (>89) mL/min POC Glucose 243 H (68-110) mg/dl Random Glucose 55 L (74-106) mg/dL Calcium 7.9 L (8.5-10.1) mg/dL AST 14 L (15-37) U/L Total Protein 6.1 L D (6.4-8.2) g/dL Albumin 2.8 L (3.4-5.0) g/dL 12/30/17 12/30/17 12/30/17 Range/Units 08:09 12:06 16:43 WBC (4.0-11.0) th/mm3 RBC (4.50-5.90) mil/mm3 Hgb (13.0-17.0) gm/dL Hct (39.0-51.0) % Neut % (Auto) (16.0-70.0) % Neut # (Auto) (1.8-7.7) th/mm3 Chloride (98-107) meq/L BUN (7-18) mg/dL Creatinine (0.60-1.30) mg/dL Estimated GFR (>89) mL/min POC Glucose 55 L 252 H 229 H (68-110) mg/dl Random Glucose (74-106) mg/dL Calcium (8.5-10.1) mg/dL AST (15-37) U/L Total Protein (6.4-8.2) g/dL Albumin (3.4-5.0) g/dL Short CBC 12/30/17 Range/Units 06:51 WBC 11.7 H (4.0-11.0) th/mm3 Hgb 9.7 L (13.0-17.0) gm/dL Hct 29.4 L (39.0-51.0) % Plt Count 435 (150-450) th/mm3 BMP 12/30/17 06:51 Sodium 144 Potassium 4.2 Chloride 113 H Carbon Dioxide 23.3 BUN 36 H Creatinine 2.69 H Calcium 7.9 L Liver Function 12/30/17 Range/Units 06:51 Total Bilirubin 0.2 (0.2-1.0) mg/dL Direct Bilirubin Less than 0.1 (0.0-0.2) mg/dL AST 14 L (15-37) U/L ALT 18 (12-78) U/L Alkaline Phosphatase 88 (45-117) U/L Albumin 2.8 L (3.4-5.0) g/dL <Kayden Rinaldi - 12/30/17 17:57> Abnormal lab results 12/29/17 12/29/17 12/29/17 Range/Units 09:40 09:40 11:44 WBC 12.8 H (4.0-11.0) th/mm3 RBC 3.33 L (4.50-5.90) mil/mm3 Hgb 9.9 L (13.0-17.0) gm/dL Hct 29.3 L (39.0-51.0) % Neut % (Auto) 80.0 H (16.0-70.0) % Neut # (Auto) 10.2 H (1.8-7.7) th/mm3 Chloride (98-107) meq/L BUN (7-18) mg/dL Creatinine (0.60-1.30) mg/dL Estimated GFR (>89) mL/min POC Glucose 223 H (68-110) mg/dl Random Glucose (74-106) mg/dL Calcium (8.5-10.1) mg/dL AST (15-37) U/L Total Protein (6.4-8.2) g/dL Albumin (3.4-5.0) g/dL Triglycerides 182 H (42-150) mg/dL LDL Cholesterol, Calc 117 H (0-99) mg/dL HDL Cholesterol 28.1 L (40.0-60.0) mg/dL 12/29/17 12/29/17 12/30/17 Range/Units 17:16 20:43 06:51 WBC 11.7 H (4.0-11.0) th/mm3 RBC 3.36 L (4.50-5.90) mil/mm3 Hgb 9.7 L (13.0-17.0) gm/dL Hct 29.4 L (39.0-51.0) % Neut % (Auto) 74.3 H (16.0-70.0) % Neut # (Auto) 8.7 H (1.8-7.7) th/mm3 Chloride (98-107) meq/L BUN (7-18) mg/dL Creatinine (0.60-1.30) mg/dL Estimated GFR (>89) mL/min POC Glucose 141 H 243 H (68-110) mg/dl Random Glucose (74-106) mg/dL Calcium (8.5-10.1) mg/dL AST (15-37) U/L Total Protein (6.4-8.2) g/dL Albumin (3.4-5.0) g/dL Triglycerides (42-150) mg/dL LDL Cholesterol, Calc (0-99) mg/dL HDL Cholesterol (40.0-60.0) mg/dL 12/30/17 12/30/17 Range/Units 06:51 08:09 WBC (4.0-11.0) th/mm3 RBC (4.50-5.90) mil/mm3 Hgb (13.0-17.0) gm/dL Hct (39.0-51.0) % Neut % (Auto) (16.0-70.0) % Neut # (Auto) (1.8-7.7) th/mm3 Chloride 113 H (98-107) meq/L BUN 36 H (7-18) mg/dL Creatinine 2.69 H (0.60-1.30) mg/dL Estimated GFR 24 L (>89) mL/min POC Glucose 55 L (68-110) mg/dl Random Glucose 55 L (74-106) mg/dL Calcium 7.9 L (8.5-10.1) mg/dL AST 14 L (15-37) U/L Total Protein 6.1 L D (6.4-8.2) g/dL Albumin 2.8 L (3.4-5.0) g/dL Triglycerides (42-150) mg/dL LDL Cholesterol, Calc (0-99) mg/dL HDL Cholesterol (40.0-60.0) mg/dL Short CBC 12/29/17 12/30/17 Range/Units 09:40 06:51 WBC 12.8 H 11.7 H (4.0-11.0) th/mm3 Hgb 9.9 L 9.7 L (13.0-17.0) gm/dL Hct 29.3 L 29.4 L (39.0-51.0) % Plt Count 443 435 (150-450) th/mm3 BMP 12/30/17 06:51 Sodium 144 Potassium 4.2 Chloride 113 H Carbon Dioxide 23.3 BUN 36 H Creatinine 2.69 H Calcium 7.9 L Liver Function 12/30/17 Range/Units 06:51 Total Bilirubin 0.2 (0.2-1.0) mg/dL Direct Bilirubin Less than 0.1 (0.0-0.2) mg/dL AST 14 L (15-37) U/L ALT 18 (12-78) U/L Alkaline Phosphatase 88 (45-117) U/L Albumin 2.8 L (3.4-5.0) g/dL <Uma Lucio T - 12/30/17 08:59> - Imaging Impressions Abdomen/Bladder Ultrasound 12/29/17 00:00 CONCLUSION: 1. Mild increased echogenicity of the kidneys suggesting medical renal disease. There is no hydronephrosis. 2. Urinary bladder is decompressed with a Carranza catheter in place. <Uma Lucio T - 12/30/17 08:59> Physical Exam Vital signs: Vital Signs 12/29/17 19:02 12/29/17 20:00 12/30/17 00:00 Temperature 98.1 F 97.8 F Pulse Rate 98 H 93 H 87 Respiratory Rate 18 20 20 Blood Pressure 160/77 H 160/70 H Pulse Oximetry 95 18 L 12/30/17 04:00 12/30/17 08:00 12/30/17 08:10 Temperature 97.7 F 97.6 F Pulse Rate 75 84 83 Respiratory Rate 18 16 20 Blood Pressure 154/74 H 172/77 H Pulse Oximetry 97 93 L 12/30/17 12:00 12/30/17 12:50 12/30/17 14:56 Temperature 97.3 F L Pulse Rate 85 80 Respiratory Rate 16 20 18 Blood Pressure 175/81 H Pulse Oximetry 94 L 12/30/17 16:00 Temperature 97.8 F Pulse Rate 99 H Respiratory Rate 16 Blood Pressure 156/71 H Pulse Oximetry 93 L Intake & Output 12/29/17 12/30/17 12/30/17 18:59 06:59 18:59 Intake Total 1000 / 1000 701 / 701 Output Total 800 / 800 775 / 775 Balance 200 / 200 -74 / -74 Intake: IV 1000 / 1000 NS Inj 1,000 ML @ 60 mls/hr IV. 1000 / 1000 CONT .[id number] [facility] Rx#:[id number] Oral 701 / 701 Output: Urine 800 / 800 775 / 775 Other: # Voids 1 Date of Last Bowel Movement 12/27/17 12/27/17 <Kayden Rinaldi K - 12/30/17 17:57> Vital Signs 12/29/17 11:46 12/29/17 12:00 12/29/17 12:11 Temperature 98.1 F Pulse Rate 91 H 98 H Respiratory Rate 16 18 18 Blood Pressure 140/77 Pulse Oximetry 93 L 12/29/17 19:02 12/29/17 20:00 12/30/17 00:00 Temperature 98.1 F 97.8 F Pulse Rate 98 H 93 H 87 Respiratory Rate 18 20 20 Blood Pressure 160/77 H 160/70 H Pulse Oximetry 95 18 L 12/30/17 04:00 12/30/17 08:00 12/30/17 08:10 Temperature 97.7 F 97.6 F Pulse Rate 75 83 83 Respiratory Rate 18 16 20 Blood Pressure 154/74 H 172/77 H Pulse Oximetry 97 93 L Intake & Output 12/29/17 12/30/17 12/30/17 18:59 06:59 18:59 Intake Total 1000 / 1000 701 / 701 Output Total 800 / 800 775 / 775 Balance 200 / 200 -74 / -74 Intake: IV 1000 / 1000 NS Inj 1,000 ML @ 60 mls/hr IV. 1000 / 1000 CONT .[id number] [facility] Rx#:[id number] Oral 701 / 701 Output: Urine 800 / 800 775 / 775 Other: # Voids 1 Date of Last Bowel Movement 12/27/17 <Uma Lucio 12/30/17 08:59> Narrative: GENERAL: lying in bed comfortably SKIN: Warm and dry. HEAD: Normocephalic. EYES: No scleral icterus. No injection or drainage. NECK: Supple, trachea midline. No JVD or lymphadenopathy. CARDIOVASCULAR: Regular rate and rhythm without murmurs, gallops, or rubs. RESPIRATORY: Breath sounds equal bilaterally. No accessory muscle use. GASTROINTESTINAL: Abdomen soft, non-tender, nondistended. MUSCULOSKELETAL: No cyanosis, or edema. BACK: Nontender without obvious deformity. No CVA tenderness. <Uma Lucio 12/30/17 16:57> - Routine HEENT Exam Comments: anisocoria noted <Uma Lucio 12/30/17 11:25> - Urinary Catheter Management Indwelling Urethral Catheter Cath placed during this visit: no <Kayden Rinaldi 12/30/17 17:57> yes <Uma Lucio 12/30/17 16:57> Reason for continuing: Acute urinary retention <Uma Lucio 12/30/17 08 :59> Insertion date: 12/28/17 <Uma Lucio 12/30/17 08:59> Insertion time: 09:20 <Uma Lucio T - 12/30/17 08:59> Assessment and Plan - Assessment (1) Acute kidney injury Code(s): N17.9 - Acute kidney failure, unspecified Status: Acute (2) Abnormal weight loss Code(s): R63.4 - Abnormal weight loss Status: Acute (3) COPD (chronic obstructive pulmonary disease) Code(s): J44.9 - Chronic obstructive pulmonary disease, unspecified Status: Acute (4) Diabetes Code(s): E11.9 - Type 2 diabetes mellitus without complications Status: Acute (5) Current smoker Code(s): F17.200 - Nicotine dependence, unspecified, uncomplicated Status: Acute (6) Nutrition, metabolism, and development symptoms Code(s): R63.8 - Other symptoms and signs concerning food and fluid intake Status: Acute (7) Infected tooth Code(s): K04.7 - Periapical abscess without sinus Status: Acute (8) Hepatitis Code(s): K75.9 - Inflammatory liver disease, unspecified Status: Acute <BradfordKayden her K 12/30/17 17:57> (1) Acute kidney injury Code(s): N17.9 - Acute kidney failure, unspecified Status: Acute Plan: (2) Abnormal weight loss Code(s): R63.4 - Abnormal weight loss Status: Acute (3) COPD (chronic obstructive pulmonary disease) Code(s): J44.9 - Chronic obstructive pulmonary disease, unspecified Status: Acute (4) Diabetes Code(s): E11.9 - Type 2 diabetes mellitus without complications Status: Acute (5) Current smoker Code(s): F17.200 - Nicotine dependence, unspecified, uncomplicated Status: Acute (6) Nutrition, metabolism, and development symptoms Code(s): R63.8 - Other symptoms and signs concerning food and fluid intake Status: Acute (7) Infected tooth Code(s): K04.7 - Periapical abscess without sinus Status: Acute (8) Hepatitis Code(s): K75.9 - Inflammatory liver disease, unspecified Status: Acute <Uma Lucio T - 12/30/17 16:45> - Assessment and Plan Patient is a 67-year-old male who presented with a syncopal episode, 20 pound weight loss, and KAYLA. Unintentional weight loss: -CT chest, abdomen, and pelvis without contrast were normal -HIV nonreactive -PSA pending -Not UTD on colonoscopy -Hemmoccult negative, performed in the ED on admission Hepatitis: -AST 14, ALT 18 , Alk phos 88 -Positive for hepatitis C exposure and for recent hepatitis B exposure. Hep C genotype and viral load pending. -Patient most likely will follow up with GI outpatient. PCP to send referral. KAYLA on CKD -Creatinine trending down. Creatinine of 1.7 in April may be his baseline, however this is unclear. -Carranza was placed on 12/29, carranza will be removed today and will try voiding trial -Nephrology was consulted, appreciate recommendations -FeNa of 2.49, likely not due to prerenal disease -continue tamsulosin for possible obstruction. -Significant proteinuria -Complement normal, JOCELYNN and ANCA pending, 24-hour urine protein pending -Continue to hold lisinopril -Avoid nephrotoxic agents Syncope: Initial telemetry and cardiac markers unremarkable Patient with anisicoria and gait instability, no other focal neurologic deficits. Will order MRI w/o contrast to assess further. Echo: No hemodynamically significant echocardiographic features were observed Hyperkalemia -Resolved -High of 5.8 on 12/29 s/p Insulin, albuterol, kayexalate and calculate calcium gluconate were given Diabetes: Patient with hypoglycemic episode this morning, resolved with juice Will decrease HS Levemir from 20 to 15 units Continue 25 units Levemir AM COPD: Patient currently not on home oxygen Patient reports being on home albuterol nebs as needed Wheezing noted throughout all lung rojas noted on physical exam. DuoNeb every 4 hours HTN Hold lisinopril Continue home medication amlodipine Hydralazine 25 mg p.o. 3 times daily added by nephrology Leukocytosis: Blood and urine cultures pending, NGTD Dental infection: Clindamycin 450 mg p.o. every 8 hours (started on 12/28-) Proximal phalanx fracture -Seen by hand surgery, splint in place -Follow-up 3 weeks as an outpatient Fluids: Adequate p.o. intake Electrolytes: monitor and replete as needed Nutrition: Renal diet with low potassium GI prophylaxis: not indicated VTE prophylaxis: Lovenox Disp: Patient will need PT @ rehab <Uma Lucio T - 12/30/17 16:57> - Attending Attestation The exam, history, and the medical decision-making described in the above note were completed with the assistance of the resident physician. I reviewed and agree with the findings presented. I attest that I had a [id number] encounter with the patient on the same day, and personally performed and documented my assessment and findings in the medical record. Seen and asymptomatic today. no complaints. PT noticing significant gait disturbance on physical exam, between this and anisocoria will get MRI brain. Viral loads still pending. Hand splinted. Will remove carranza and trial of spontaneous voiding today. PCP aware of new diagnoses and will arrange GI f/u. Likely will need SNF placement, to work with CM on this. uptitrating anti hypertensives and decreasing HS insulin. <Kayden Rinaldi - 12/30/17 17:57>
[2017-12-30] MEDS: Insulin NovoLOG Aspart Correctional Sugar Inj SQ SCH ×4 (09:16→21:17)
[2017-12-30] MEDS: amLODIPine 10 MG Tablet PO SCH (09:20)
[2017-12-30] MEDS: hydrALAZINE 50 MG Tablet PO SCH ×3 (09:21→17:36)
[2017-12-30] MEDS: FLUoxetine 20 MG Capsule PO SCH (09:22)
[2017-12-30] MEDS: Senna/Docusate Sodium 8.6/50 MG Tablet PO SCH ×2 (09:22→21:15)
[2017-12-30] MEDS: Insulin Detemir Inj 1,000 UNIT/10 ML Vial SQ SCH ×2 (10:18→21:17)
--- NOTE | 2017-12-30 12:32 | P.PNNP ---
Subjective Interval history: Resting comfortably. Has chronic shortness of breath and reports some nausea. Denies any chest pain, vomiting, or loose stools. <Ev Talamantes - Last Filed: 12/30/17 12:24> Physical Exam Vital signs: Vital Signs 12/29/17 19:02 12/29/17 20:00 12/30/17 00:00 Temperature 98.1 F 97.8 F Pulse Rate 98 H 93 H 87 Respiratory Rate 18 20 20 Blood Pressure 160/77 H 160/70 H Pulse Oximetry 95 18 L 12/30/17 04:00 12/30/17 08:00 12/30/17 08:10 Temperature 97.7 F 97.6 F Pulse Rate 75 84 83 Respiratory Rate 18 16 20 Blood Pressure 154/74 H 172/77 H Pulse Oximetry 97 93 L Intake & Output 12/29/17 12/30/17 12/30/17 18:59 06:59 18:59 Intake Total 1000 / 1000 701 / 701 Output Total 800 / 800 775 / 775 Balance 200 / 200 -74 / -74 Intake: IV 1000 / 1000 NS Inj 1,000 ML @ 60 mls/hr IV. 1000 / 1000 CONT .[id number] RE Rx#:[id number] Oral 701 / 701 Output: Urine 800 / 800 775 / 775 Other: # Voids 1 Date of Last Bowel Movement 12/27/17 12/27/17 Narrative: GENERAL: Alert and oriented SKIN: Warm and dry. HEAD: Normocephalic. EYES: No scleral icterus. No injection or drainage. NECK: Supple, trachea midline. No JVD or lymphadenopathy. CARDIOVASCULAR: Regular rate and rhythm without murmurs, gallops, or rubs. RESPIRATORY: Breath sounds equal bilaterally. No accessory muscle use. GASTROINTESTINAL: Abdomen soft, non-tender, nondistended. MUSCULOSKELETAL: No cyanosis, or edema. BACK: Nontender without obvious deformity. No CVA tenderness. - Urinary Catheter Management Indwelling Urethral Catheter Cath placed during this visit: yes Reason for continuing: Acute urinary retention Insertion date: 12/28/17 Insertion time: 09:20 <Ev Talamantes - Last Filed: 12/30/17 12:24> Vital signs: Vital Signs 01/01/18 12:00 01/01/18 16:00 Temperature 98.1 F 98.3 F Pulse Rate 94 H 92 H Respiratory Rate 18 18 Blood Pressure 135/61 148/78 H Pulse Oximetry 94 L 94 L Intake & Output 01/01/18 01/02/18 01/02/18 18:59 06:59 18:59 Intake Total 900 / 900 Output Total 650 / 650 Balance 250 / 250 Intake: Oral 900 / 900 Output: Urine Amount (Catheter) 650 / 650 Indwelling Urethral Catheter 650 / 650 Other: Date of Last Bowel Movement 01/01/18 # Bowel Movements 1 - Urinary Catheter Management Indwelling Urethral Catheter Cath placed during this visit: no <Gen Marie - Last Filed: 01/02/18 10:31> Assessment and Plan - Assessment (1) Acute kidney injury Code(s): N17.9 - Status: Acute Plan: Acute kidney injury with a creatinine of 2.98 and potassium level 4.1 on day of consult On admission creatinine was as high as 3.08 and has had hyperkalemia. Acute kidney injury with FeNA of 2.49 % suggestive of ATN possibly from infection Creatinine on 04/26/16 was at 1.70 so has past medical history of chronic kidney disease most likely from diabetes or hypertensive disease. Urine also noted with 500 or more protein. Complements are normal, JOCELYNN and ANCA are pending. Creatinine improving at 2.65 today, UOP at 1575ml/24 hours Plan Avoid nephrotoxins including NSAIDS, IV contrast, and aminoglycosides 24 hour urine for protein in process Continue to hold lisinopril Continue low potassium diabetic diet Will follow urinary output and BMP (2) HTN (hypertension) Code(s): I10 - Status: Acute Plan: Remains hypertensive. Hydralazine has been increased. (3) Diabetes Code(s): E11.9 - Type 2 diabetes mellitus without complications Status: Acute Plan: Blood sugars labile Recommend to Maintain blood sugars between 140 mg/dl to 180 mg/dl while hospitalized. (4) Anemia Code(s): D64.9 - Anemia, unspecified Status: Acute Plan: HGB at 9.7 Will order one dose of Venofer (5) Current smoker Code(s): F17.200 - Nicotine dependence, unspecified, uncomplicated Status: Acute Plan: tobacco cessation recommended to preserve kidney function. <Ev Talamantes - Last Filed: 12/30/17 12:24> - Assessment (1) Acute kidney injury Code(s): N17.9 - Acute kidney failure, unspecified Status: Acute Plan: Patient seen and examined, agree with above. Creatinine improving, check 24 hr urine protein and serology pending. (2) HTN (hypertension) Code(s): I10 - Essential (primary) hypertension Status: Acute (3) Diabetes Code(s): E11.9 - Type 2 diabetes mellitus without complications Status: Acute (4) Anemia Code(s): D64.9 - Anemia, unspecified Status: Acute (5) Current smoker Code(s): F17.200 - Nicotine dependence, unspecified, uncomplicated Status: Acute <Gen Marie - Last Filed: 01/02/18 10:31>
[2017-12-30] MEDS ORDERED: Iron Sucrose Inj 100 MG in Sodium Chlor 0.9% Inj 100 ML IV.SIG ONE (15:00)
--- NOTE | 2017-12-30 20:46 | MR ---
EXAM DATE: 12/30/2017 3:53 PM EDT AGE/SEX: 67 years / Male INDICATIONS: . Patient also anisocoria and an abnormal gait. CLINICAL DATA: This is the patient's initial encounter. Patient reports that signs and symptoms have been present for 1 day and indicates a pain score of 3/10. MEDICAL/SURGICAL HISTORY: Diabetes mellitus type II. Hypertension. Chronic obstructive pulmon william disease. . Vasectomy clips. COMPARISON: [facility] – [place], CT HEAD W/O CONTRAST, 12/27/2017. . TECHNIQUE: Multiplanar, multisequence examination of the brain was performed without contrast. FINDINGS: Roughly 6 mm focus of restricted diffusion involves the right side of the elizabet consistent with an acu te or subacute infarct, series 6 image 26. No other restricted diffusion demonstrated. There is no intracranial hemorrhage or hematoma. No mass, mass effect or midline shift. Mild, chronic FLAIR signal abnormality seen of the bilateral periventricular white matter. Opacified ethmoid and right maxillary sinus is again noted. CONCLUSION: 1. 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 2. No other acute intracranial abnormality demonstrated. Mild chronic white matter changes. 3. Paranasal sinus disease. Electronically signed by: Gm Herrera MD 12/30/2017 8:45 PM EDT
[2017-12-31 06:37] LABS: Baso # (Auto) 0.1 th/mm3 (0.0-0.2); Baso % (Auto) 0.9 % (0.0-2.0); Eos # (Auto) 0.2 th/mm3 (0.0-0.4); Eos % (Auto) 1.9 % (0.0-4.0); Hematocrit 28.8 % (39.0-51.0); Hemoglobin 9.8 gm/dL (13.0-17.0); Lymph # (Auto) 2.2 th/mm3 (1.0-4.8); Lymph % (Auto) 18.8 % (9.0-44.0); Mean Corpuscular HGB Conc 33.9 % (32.0-36.0); Mean Corpuscular Hemoglobin 29.6 pg (27.0-34.0); Mean Corpuscular Volume 87.2 fL (80.0-100.0); Mean Platelet Volume 7.6 fL (7.0-11.0); Mono # (Auto) 0.9 th/mm3 (0.0-0.9); Mono % (Auto) 7.4 % (0.0-8.0); Neut # (Auto) 8.4 th/mm3 (1.8-7.7); Platelet Count 445 th/mm3 (150-450); Red Cell Distribution Width 14.9 % (11.6-17.2); White Blood Count 11.8 th/mm3 (4.0-11.0)
[2017-12-31 07:07] LABS: Calcium 8.2 mg/dL (8.5-10.1); Potassium 4.2 meq/L (3.5-5.1)
[2017-12-31] MEDS: hydrALAZINE 50 MG Tablet PO SCH ×2 (09:01→12:38)
[2017-12-31] MEDS: FLUoxetine 20 MG Capsule PO SCH (09:02)
[2017-12-31] MEDS: amLODIPine 10 MG Tablet PO SCH (09:02)
[2017-12-31] MEDS: Senna/Docusate Sodium 8.6/50 MG Tablet PO SCH ×2 (09:02→20:59)
[2017-12-31] MEDS: Insulin Detemir Inj 1,000 UNIT/10 ML Vial SQ SCH ×2 (09:04→20:56)
--- NOTE | 2017-12-31 09:31 | P.PNFP ---
Subjective Interval history: 67-year-old male with COPD, hypertension, and diabetes who presented after a syncopal episode. He also had emesis over the last couple months. Serology shows he has been exposed to hepatitis B and hepatitis C at some point , viral loads are pending. He has renal damage of unknown origin. He also has a dental infection being treated with clindamycin and a hand fracture sustained during his syncopal episode that is now splinted. He also has gait instability and was found to have a 6mm subacute lesion in his elizabet on MRI. No acute event overnight. No new complaints this morning. He does state that his difficulty walking has been over the past weeks. <Fernando Hooks - 12/31/17 15:03> Results - Labs Result diagrams: 12/31/17 05:30 12/31/17 05:30 <Kayden Rinaldi - 12/31/17 20:36> Abnormal lab results 12/31/17 12/31/17 12/31/17 Range/Units 05:30 05:30 05:52 WBC 11.8 H (4.0-11.0) th/mm3 RBC 3.30 L (4.50-5.90) mil/mm3 Hgb 9.8 L (13.0-17.0) gm/dL Hct 28.8 L (39.0-51.0) % Neut % (Auto) 71.0 H (16.0-70.0) % Neut # (Auto) 8.4 H (1.8-7.7) th/mm3 Chloride 110 H (98-107) meq/L BUN 33 H (7-18) mg/dL Creatinine 2.52 H (0.60-1.30) mg/dL Estimated GFR 26 L (>89) mL/min POC Glucose (68-110) mg/dl Calcium 8.2 L (8.5-10.1) mg/dL Ur Total Protein 24 Hr 3638 H (0-150) mg/24hr 12/31/17 12/31/17 12/31/17 Range/Units 12:03 17:05 19:10 WBC (4.0-11.0) th/mm3 RBC (4.50-5.90) mil/mm3 Hgb (13.0-17.0) gm/dL Hct (39.0-51.0) % Neut % (Auto) (16.0-70.0) % Neut # (Auto) (1.8-7.7) th/mm3 Chloride (98-107) meq/L BUN (7-18) mg/dL Creatinine (0.60-1.30) mg/dL Estimated GFR (>89) mL/min POC Glucose 132 H 175 H 125 H (68-110) mg/dl Calcium (8.5-10.1) mg/dL Ur Total Protein 24 Hr (0-150) mg/24hr Short CBC 12/31/17 Range/Units 05:30 WBC 11.8 H (4.0-11.0) th/mm3 Hgb 9.8 L (13.0-17.0) gm/dL Hct 28.8 L (39.0-51.0) % Plt Count 445 (150-450) th/mm3 BMP 12/31/17 05:30 Sodium 142 Potassium 4.2 Chloride 110 H Carbon Dioxide 22.0 BUN 33 H Creatinine 2.52 H Calcium 8.2 L <Kayden Rinaldi - 12/31/17 20:36> Abnormal lab results 12/30/17 12/30/17 12/30/17 Range/Units 12:06 16:43 19:30 WBC (4.0-11.0) th/mm3 RBC (4.50-5.90) mil/mm3 Hgb (13.0-17.0) gm/dL Hct (39.0-51.0) % Neut % (Auto) (16.0-70.0) % Neut # (Auto) (1.8-7.7) th/mm3 Chloride (98-107) meq/L BUN (7-18) mg/dL Creatinine (0.60-1.30) mg/dL Estimated GFR (>89) mL/min POC Glucose 252 H 229 H 284 H (68-110) mg/dl Calcium (8.5-10.1) mg/dL Ur Total Protein 24 Hr (0-150) mg/24hr 12/31/17 12/31/17 12/31/17 Range/Units 05:30 05:30 05:52 WBC 11.8 H (4.0-11.0) th/mm3 RBC 3.30 L (4.50-5.90) mil/mm3 Hgb 9.8 L (13.0-17.0) gm/dL Hct 28.8 L (39.0-51.0) % Neut % (Auto) 71.0 H (16.0-70.0) % Neut # (Auto) 8.4 H (1.8-7.7) th/mm3 Chloride 110 H (98-107) meq/L BUN 33 H (7-18) mg/dL Creatinine 2.52 H (0.60-1.30) mg/dL Estimated GFR 26 L (>89) mL/min POC Glucose (68-110) mg/dl Calcium 8.2 L (8.5-10.1) mg/dL Ur Total Protein 24 Hr 3638 H (0-150) mg/24hr Short CBC 12/31/17 Range/Units 05:30 WBC 11.8 H (4.0-11.0) th/mm3 Hgb 9.8 L (13.0-17.0) gm/dL Hct 28.8 L (39.0-51.0) % Plt Count 445 (150-450) th/mm3 BMP 12/31/17 05:30 Sodium 142 Potassium 4.2 Chloride 110 H Carbon Dioxide 22.0 BUN 33 H Creatinine 2.52 H Calcium 8.2 L <Fernando Hooks - 12/31/17 09:30> - Imaging Impressions Head MRI 12/30/17 00:00 CONCLUSION: 1. 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 2. No other acute intracranial abnormality demonstrated. Mild chronic white matter changes. 3. Paranasal sinus disease. Carotid Doppler Study 12/31/17 00:00 CONCLUSION: 1. No significant stenosis in the common carotid or internal carotid arteries. 2. Elevated velocities in the external carotid arteries of unclear clinical significance. 3. The vertebral arteries are intact and demonstrate normal antegrade flow. Head MRA 12/31/17 10:10 CONCLUSION: 1. Negative MRA [place] ([place]) non contrast. Neck MRA 12/31/17 15:59 CONCLUSION: 1. Short segment nonfilling of the right vertebral artery at the level of the skull base as described. This is adjacent to the focal pontine infarct seen on yesterday's noncontrast MRI. A high-resolution contrast enhanced MRI of the brain is recommended. 2. No stenosis or other acute abnormality of the carotids. _ Percent stenosis is calculated using the diameter of the stenotic region over the diameter of the normal distal internal carotid artery _ <Kayden Rinaldi - 12/31/17 20:36> Impressions Head MRI 12/30/17 00:00 CONCLUSION: 1. 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 2. No other acute intracranial abnormality demonstrated. Mild chronic white matter changes. 3. Paranasal sinus disease. <Fernando Hooks - 12/31/17 09:30> Physical Exam Vital signs: Vital Signs 12/31/17 00:00 12/31/17 04:00 12/31/17 08:00 Temperature 98.6 F 98.0 F 98.2 F Pulse Rate 99 H 96 H 85 Respiratory Rate 18 18 18 Blood Pressure 164/76 H 155/86 H 151/72 H Pulse Oximetry 96 96 95 12/31/17 09:30 12/31/17 09:48 12/31/17 12:00 Temperature 98.9 F Pulse Rate 91 H 94 H Respiratory Rate 15 18 18 Blood Pressure 177/79 H Pulse Oximetry 94 L 12/31/17 13:35 12/31/17 16:00 12/31/17 18:04 Temperature 97.3 F L Pulse Rate 93 H Respiratory Rate 18 17 18 Blood Pressure 173/77 H Pulse Oximetry 93 L Intake & Output 12/31/17 12/31/17 01/01/18 06:59 18:59 06:59 Intake Total 960 / 960 Output Total 750 / 750 750 / 750 Balance -750 / -750 210 / 210 Intake: Oral 960 / 960 Output: Urine 750 / 750 Urine Amount (Catheter) 750 / 750 Indwelling Urethral Catheter 750 / 750 Other: Date of Last Bowel Movement 12/27/17 01/26/18 01/26/18 <Kayden Rinaldi - 12/31/17 20:36> Vital Signs 12/30/17 12:00 12/30/17 12:50 12/30/17 14:56 Temperature 97.3 F L Pulse Rate 85 80 Respiratory Rate 16 20 18 Blood Pressure 175/81 H Pulse Oximetry 94 L 12/30/17 16:00 12/30/17 19:31 12/30/17 20:00 Temperature 97.8 F 98.2 F Pulse Rate 99 H 99 H 100 H Respiratory Rate 16 21 18 Blood Pressure 156/71 H 159/70 H Pulse Oximetry 93 L 96 12/31/17 00:00 12/31/17 04:00 12/31/17 08:00 Temperature 98.6 F 98.0 F 98.2 F Pulse Rate 99 H 96 H 91 H Respiratory Rate 18 18 18 Blood Pressure 164/76 H 155/86 H 151/72 H Pulse Oximetry 96 96 95 12/31/17 09:30 Temperature Pulse Rate 91 H Respiratory Rate 15 Blood Pressure Pulse Oximetry Intake & Output 12/30/17 12/31/17 12/31/17 18:59 06:59 18:59 Intake Total 105 / 105 Output Total 750 / 750 Balance 105 / 105 -750 / -750 Intake: IV 105 / 105 Venofer Inj 100 MG In NS Inj 105 / 105 100 ML @ 105 mls/hr IV.SIG ONCE ONE Rx#:[id number] Output: Urine 750 / 750 Other: Date of Last Bowel Movement 12/27/17 12/27/17 <Fernando Hooks - 12/31/17 09:30> Narrative: General: Well-developed, alert, and in no acute distress. Appears stated age HEENT: moist mucous membranes, poor dentition Neck: Supple, trachea midline Cardiac: Regular rate and rhythm without murmurs Pulmonary: Non-labored breathing. Mild wheezing in all lung rojas bilaterally with good air movement Abdomen: Normal bowel sounds, soft and non-tender without rebound or guarding Extremities: No edema, 2+ pedal pulses, capillary refill less than 2 seconds Neurologic: L pupil > R pupil, CN II-XII otherwise intact. 5/5 strength in all extremities. Equal sensation. Heel to baxter normal bilaterally. <Fernando Hooks 12/31/17 15:03> - Urinary Catheter Management Indwelling Urethral Catheter Cath placed during this visit: no <BradfordtainaKayden 12/31/17 20:36> yes, but has since been removed by the nurse <Fernando Hooks Meño 12/31/17 15:03> Reason for continuing: Acute urinary retention <Fernando Hooks 09:30> Insertion date: 12/28/17 <Fernando Hooks 12/31/17 09:30> Insertion time: 09:20 <Fernando Hooks 12/31/17 09:30> Removal date: 12/30/17 <Fernando Hooks 12/31/17 09:30> Removal time: 14:30 <Fernando Hooks 12/31/17 09:30> Assessment and Plan - Assessment (1) Acute kidney injury Code(s): N17.9 - Acute kidney failure, unspecified Status: Acute (2) Abnormal weight loss Code(s): R63.4 - Abnormal weight loss Status: Acute (3) COPD (chronic obstructive pulmonary disease) Code(s): J44.9 - Chronic obstructive pulmonary disease, unspecified Status: Acute (4) Diabetes Code(s): E11.9 - Type 2 diabetes mellitus without complications Status: Acute (5) Current smoker Code(s): F17.200 - Nicotine dependence, unspecified, uncomplicated Status: Acute (6) Nutrition, metabolism, and development symptoms Code(s): R63.8 - Other symptoms and signs concerning food and fluid intake Status: Acute (7) Infected tooth Code(s): K04.7 - Periapical abscess without sinus Status: Acute (8) Hepatitis Code(s): K75.9 - Inflammatory liver disease, unspecified Status: Acute <Kayden Rinaldi 12/31/17 20:36> (1) Acute kidney injury Code(s): N17.9 - Acute kidney failure, unspecified Status: Acute (2) Abnormal weight loss Code(s): R63.4 - Abnormal weight loss Status: Acute (3) COPD (chronic obstructive pulmonary disease) Code(s): J44.9 - Chronic obstructive pulmonary disease, unspecified Status: Acute (4) Diabetes Code(s): E11.9 - Type 2 diabetes mellitus without complications Status: Acute (5) Current smoker Code(s): F17.200 - Nicotine dependence, unspecified, uncomplicated Status: Acute (6) Nutrition, metabolism, and development symptoms Code(s): R63.8 - Other symptoms and signs concerning food and fluid intake Status: Acute (7) Infected tooth Code(s): K04.7 - Periapical abscess without sinus Status: Acute (8) Hepatitis Code(s): K75.9 - Inflammatory liver disease, unspecified Status: Acute <Fernando Hooks J - 12/31/17 14:36> - Assessment and Plan Patient is a 67-year-old male who presented with a syncopal episode, 20 pound weight loss, and KAYLA. He was found to have subacute lesion in his Elizabet. Unintentional weight loss: -CT chest, abdomen, and pelvis without contrast were normal -HIV nonreactive -PSA normal -Not UTD on colonoscopy -Hemmoccult negative, performed in the ED on admission KAYLA on CKD -Creatinine trending down. Creatinine of 1.7 in April may be his baseline, however this is unclear. -Nephrology was consulted and is following with us -FeNa of 2.49, likely not due to prerenal disease -continue tamsulosin for possible obstruction, required straight cath this morning and still has not urinated on his own. Will replace carranza. -Significant proteinuria, 3.6g over 24h -Complement normal, JOCELYNN and ANCA pending, 24-hour urine protein pending -Continue to hold lisinopril -Avoid nephrotoxic agents Hepatitis: -AST 14, ALT 18 , Alk phos 88 -Positive for hepatitis C exposure and for recent hepatitis B exposure. Hep C genotype and viral load pending. -Patient most likely will follow up with GI outpatient. PCP to send referral. Unintentional weight loss: -CT chest, abdomen, and pelvis without contrast were normal -HIV nonreactive -PSA normal -Not UTD on colonoscopy -Hemoccult negative, performed in the ED on admission Syncope: Initial telemetry and cardiac markers unremarkable Patient with anisocoria and gait instability, no other focal neurologic deficits. MRI showed 6mm subacute lesion in the Elizabet. No focal neuro deficits Echo: No hemodynamically significant echocardiographic features were observed, no significant plaque on carotid US neurology has been consulted, appreciate recommendations. Diabetes: Patient with hypoglycemic episode this morning, resolved with juice Will decrease HS Levemir from 20 to 15 units Continue 25 units Levemir AM COPD: Patient currently not on home oxygen Patient reports being on home albuterol nebs as needed Wheezing noted throughout all lung rojas noted on physical exam. DuoNeb every 4 hours HTN Hold lisinopril due to renal function Continue home medication amlodipine Increase to Hydralazine 100 mg p.o. 3 times daily Constipation: No BM since hospitalization Senna/Docusate daily Add Miralax TID PRN Leukocytosis: Blood cultures: NG 3 days Urine cx negative Dental infection: Clindamycin 450 mg p.o. every 8 hours (started on 12/28) Proximal phalanx fracture -Seen by hand surgery, splint in place -Follow-up 3 weeks as an outpatient Fluids: Adequate p.o. intake Electrolytes: monitor and replete as needed Nutrition: Renal diet with low potassium GI prophylaxis: not indicated VTE prophylaxis: Lovenox Disposition: Patient will need PT @ rehab <Fernando Hooks - 12/31/17 15:03> - Attending Attestation The exam, history, and the medical decision-making described in the above note were completed with the assistance of the resident physician. I reviewed and agree with the findings presented. I attest that I had a [id number] encounter with the patient on the same day, and personally performed and documented my assessment and findings in the medical record. Seen today during carotid/vertebral U/S. 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 Failed TOV today, will likely need to replace carranza and f/u urology outpatient. continue flomax. appreciate nephrology following, renal injury appears multifactorial, he has known CKD likely HTN and DM related but may have HCV related complications, pending labs, and also likely had some obstructive component as he has urinary retention as well. working on placement now, hopefully can d/c soon. <Kayden Rinaldi - 12/31/17 20:36>
--- NOTE | 2017-12-31 09:58 | P.PNNP ---
Subjective Interval history: Breathing treatment, chronic shortness of breath. Reports nausea and vomiting last night. <Ev Talamantes - Last Filed: 12/31/17 16:19> Physical Exam Vital signs: Vital Signs 12/30/17 12:00 12/30/17 12:50 12/30/17 14:56 Temperature 97.3 F L Pulse Rate 85 80 Respiratory Rate 16 20 18 Blood Pressure 175/81 H Pulse Oximetry 94 L 12/30/17 16:00 12/30/17 19:31 12/30/17 20:00 Temperature 97.8 F 98.2 F Pulse Rate 99 H 99 H 100 H Respiratory Rate 16 21 18 Blood Pressure 156/71 H 159/70 H Pulse Oximetry 93 L 96 12/31/17 00:00 12/31/17 04:00 12/31/17 08:00 Temperature 98.6 F 98.0 F 98.2 F Pulse Rate 99 H 96 H 91 H Respiratory Rate 18 18 18 Blood Pressure 164/76 H 155/86 H 151/72 H Pulse Oximetry 96 96 95 12/31/17 09:30 12/31/17 09:48 Temperature Pulse Rate 91 H Respiratory Rate 15 18 Blood Pressure Pulse Oximetry Intake & Output 12/30/17 12/31/17 12/31/17 18:59 06:59 18:59 Intake Total 105 / 105 Output Total 750 / 750 Balance 105 / 105 -750 / -750 Intake: IV 105 / 105 Venofer Inj 100 MG In NS Inj 105 / 105 100 ML @ 105 mls/hr IV.SIG ONCE ONE Rx#:[id number] Output: Urine 750 / 750 Other: Date of Last Bowel Movement 12/27/17 12/27/17 Narrative: GENERAL: Alert and oriented SKIN: Warm and dry. HEAD: Normocephalic. EYES: No scleral icterus. No injection or drainage. NECK: Supple, trachea midline. No JVD or lymphadenopathy. CARDIOVASCULAR: Regular rate and rhythm without murmurs, gallops, or rubs. RESPIRATORY: Breath sounds equal bilaterally. No accessory muscle use. GASTROINTESTINAL: Abdomen soft, non-tender, nondistended. MUSCULOSKELETAL: No cyanosis, or edema. BACK: Nontender without obvious deformity. No CVA tenderness. - Urinary Catheter Management Indwelling Urethral Catheter Cath placed during this visit: yes, but has since been removed by the nurse Reason for continuing: Acute urinary retention Insertion date: 12/28/17 Insertion time: 09:20 Removal date: 12/30/17 Removal time: 14:30 <Ev Talamantes - Last Filed: 12/31/17 16:19> Vital signs: Vital Signs 01/01/18 12:00 01/01/18 16:00 Temperature 98.1 F 98.3 F Pulse Rate 94 H 92 H Respiratory Rate 18 18 Blood Pressure 135/61 148/78 H Pulse Oximetry 94 L 94 L Intake & Output 01/01/18 01/02/18 01/02/18 18:59 06:59 18:59 Intake Total 900 / 900 Output Total 650 / 650 Balance 250 / 250 Intake: Oral 900 / 900 Output: Urine Amount (Catheter) 650 / 650 Indwelling Urethral Catheter 650 / 650 Other: Date of Last Bowel Movement 01/01/18 # Bowel Movements 1 - Urinary Catheter Management Indwelling Urethral Catheter Cath placed during this visit: no <Gen Marie - Last Filed: 01/02/18 10:40> Assessment and Plan - Assessment (1) Acute kidney injury Code(s): N17.9 - Acute kidney failure, unspecified Status: Acute Plan: Acute kidney injury with a creatinine of 2.98 and potassium level 4.1 on day of consult On admission creatinine was as high as 3.08 and has had hyperkalemia. Acute kidney injury with FeNA of 2.49 % suggestive of ATN possibly from infection Creatinine on 04/26/16 was at 1.70 so has past medical history of chronic kidney disease most likely from diabetes or hypertensive disease. Urine also noted with 500 or more protein. Complements are normal Creatinine improving at 2.5, good urinary output Plan Avoid nephrotoxins including NSAIDS, IV contrast, and aminoglycosides 24 hour urine for protein with 3.6 grams of protein, patient will need kidney biopsy but currently on ASA and recent stroke. Continue low potassium diabetic diet Continue to hold lisinopril as creatinine still elevated and recent hyperkalemia. Will follow urinary output and BMP (2) HTN (hypertension) Code(s): I10 - Essential (primary) hypertension Status: Acute Plan: Remains hypertensive. Hydralazine has been increased again. (3) Diabetes Code(s): E11.9 - Type 2 diabetes mellitus without complications Status: Acute Plan: Blood sugars labile Recommend to Maintain blood sugars between 140 mg/dl to 180 mg/dl while hospitalized. (4) Anemia Code(s): D64.9 - Anemia, unspecified Status: Acute Plan: HGB at stable May benefit from Procrit however patient is hypertensive. (5) Current smoker Code(s): F17.200 - Nicotine dependence, unspecified, uncomplicated Status: Acute Plan: tobacco cessation recommended to preserve kidney function. <Ev Talamantes - Last Filed: 12/31/17 16:19> - Assessment (1) Acute kidney injury Code(s): N17.9 - Acute kidney failure, unspecified Status: Acute Plan: Patient seen and examined, agree with above. Has Nephrotic proteinuria. Creatinine is 2.5, will try to get his baseline from PCP, told . Will need Kidney Biopsy , but on ASA now, will consider Biopsy as out patient. (2) HTN (hypertension) Code(s): I10 - Essential (primary) hypertension Status: Acute (3) Diabetes Code(s): E11.9 - Type 2 diabetes mellitus without complications Status: Acute (4) Anemia Code(s): D64.9 - Anemia, unspecified Status: Acute (5) Current smoker Code(s): F17.200 - Nicotine dependence, unspecified, uncomplicated Status: Acute <Gen Marie - Last Filed: 01/02/18 10:40>
[2017-12-31] MEDS: Aspirin 325 MG Tablet PO SCH (10:08)
--- NOTE | 2017-12-31 10:09 | P.CONNEU ---
History of Present Illness Service: Neurology Primary Care Provider: UNKNOWN Chief Complaint: "Passed out" History of Present Illness: 67-year-old male admitted for syncopal episode. History of diabetes acute on chronic renal failure. Had some blood sugars have been low in the 50s during admission. In addition he is complaining of blurry vision and gait imbalance. He had an MRI brain scan which demonstrated a tiny pontine infarct. Denies any history of previous TIA stroke. Is not on any blood thinners has not been on any antiplatelet agents either. Denies any head neck trauma. Denies any chest pain fever night sweats or chills are present per Review of Systems All other systems reviewed negative except as stated in HPI [facility] - History History Provided By: Patient - Medical History Medical History: Medical History (Last Reviewed 12/31/17 @ 07:54 by Alma Menard) COPD (chronic obstructive pulmonary disease) Diabetes HTN (hypertension) Osteoarthritis - Surgical History Surgical History: Surgical History (Last Reviewed 12/28/17 @ 13:07 by Kat Oliver) No pertinent past surgical history (Acute) - Family History Family History: Family History (Last Reviewed 12/31/17 @ 07:55 by Alma Menard) Other No significant family history - Tobacco History Second Hand Smoke Exposure: Yes Tobacco Use In Past 30 Days: Yes Smoking Status: Current every day smoker Tobacco Type: Cigarettes - Alcohol History How Often Do You Have a Drink Containing Alcohol: 2 to 3 times a week - Substance Use History Substance History: No History of Abuse - Travel History Recent Travel in the [place] Within the Last 8 Weeks: No Recent Travel Out of the Country Within the Last 8 Weeks: No - Immunization History Tetanus Immunization: >5 Years Hx Influenza Vaccine This Season: No Medications and Allergies Active Medications: Active Medications Acetaminophen (Tylenol) 650 mg PO Q4H PRN PRN Reason: Pain1-2 Hydrocodone Bitart/Acetaminophen ([place] 7.5/325) 1 tab PO Q4H PRN PRN Reason: PAIN SCALE 6 TO 10 Last Admin: 12/29/17 20:48 Dose: 1 tab Hydrocodone Bitart/Acetaminophen ([place] 5/325) 1 tab PO Q4H PRN PRN Reason: PAIN SCALE 3 TO 5 Last Admin: 12/31/17 09:02 Dose: 1 tab Albuterol (Duoneb Neb (Angeles)) 1 ampul NEB Q6HR WHILE AWAKE NEB [facility] Last Admin: 12/31/17 09:28 Dose: 1 ampul Amlodipine Besylate (Norvasc) 10 mg PO DAILY [facility] Last Admin: 12/31/17 09:02 Dose: 10 mg Aspirin (Aspirin) 325 mg PO DAILY [facility] Atorvastatin Calcium (Lipitor) 80 mg PO HS [facility] Clindamycin HCl (Cleocin) 450 mg PO Q8HR [facility] Last Admin: 12/31/17 05:54 Dose: 450 mg Clonidine HCl (Catapres) 0.1 mg PO Q6H PRN PRN Reason: SEE LABEL COMMENTS Last Admin: 12/29/17 03:54 Dose: 0.1 mg Dextrose (D50w Vial) 50 ml IV.PUSH UNSCH PRN PRN Reason: PER HYPOGLYCEMIA PROTOCOL Fluoxetine HCl (Prozac) 40 mg PO DAILY [facility] Last Admin: 12/31/17 09:02 Dose: 40 mg Glucagon (Glucagon Inj) 1 mg OTHER PRN PRN PRN Reason: for Hypoglycemia Protocol Hydralazine HCl (Apresoline) 50 mg PO TID [facility] Last Admin: 12/31/17 09:01 Dose: 50 mg Sodium Chloride (Ns Inj) 1,000 mls @ 0 mls/hr IV.SIG BOLUS [facility] Insulin Aspart (Novolog Insulin Correctional Sugar Inj) 0 unit SQ [facility]; Protocol Last Admin: 12/30/17 21:17 Dose: 5 unit Insulin Detemir (Levemir Inj) 25 unit SQ DAILY [facility] Last Admin: 12/31/17 09:04 Dose: 25 unit Insulin Detemir (Levemir Inj) 15 unit SQ HS [facility] Last Admin: 12/30/17 21:17 Dose: 15 unit Naloxone HCl (Narcan Inj) 0.4 mg IV.PUSH UNSCH PRN PRN Reason: SEE LABEL COMMENTS Ondansetron HCl (Zofran Inj) 4 mg IV.PUSH Q6H PRN PRN Reason: NAUSEA Last Admin: 12/31/17 09:03 Dose: 4 mg Senna/Docusate Sodium (Beulah-Colace) 1 tab PO BID [facility] Last Admin: 12/31/17 09:02 Dose: 1 tab Tamsulosin HCl (Flomax) 0.4 mg PO DAILY [facility] Last Admin: 12/31/17 09:03 Dose: 0.4 mg Allergies Allergy/AdvReac Type Severity Reaction Status Date / Time No Known Allergies Allergy Unknown Abdominal Uncoded 12/27/17 21:20 Pain Home Medications Medication Instructions Recorded Confirmed Type amlodipine [Norvasc] 10 mg PO DAILY 12/27/17 12/27/17 History fluoxetine [Prozac] 40 mg PO DAILY 12/27/17 12/27/17 History lisinopril 40 mg PO DAILY 12/27/17 12/27/17 History Exam Vital signs: Vital Signs 12/30/17 12:00 12/30/17 12:50 12/30/17 14:56 Temperature 97.3 F L Pulse Rate 85 80 Respiratory Rate 16 20 18 Blood Pressure 175/81 H Pulse Oximetry 94 L 12/30/17 16:00 12/30/17 19:31 12/30/17 20:00 Temperature 97.8 F 98.2 F Pulse Rate 99 H 99 H 100 H Respiratory Rate 16 21 18 Blood Pressure 156/71 H 159/70 H Pulse Oximetry 93 L 96 12/31/17 00:00 12/31/17 04:00 12/31/17 08:00 Temperature 98.6 F 98.0 F 98.2 F Pulse Rate 99 H 96 H 91 H Respiratory Rate 18 18 18 Blood Pressure 164/76 H 155/86 H 151/72 H Pulse Oximetry 96 96 95 12/31/17 09:30 12/31/17 09:48 Temperature Pulse Rate 91 H Respiratory Rate 15 18 Blood Pressure Pulse Oximetry Intake & Output 12/30/17 12/31/17 12/31/17 18:59 06:59 18:59 Intake Total 105 / 105 Output Total 750 / 750 Balance 105 / 105 -750 / -750 Intake: IV 105 / 105 Venofer Inj 100 MG In NS Inj 105 / 105 100 ML @ 105 mls/hr IV.SIG ONCE ONE Rx#:[id number] Output: Urine 750 / 750 Other: Date of Last Bowel Movement 12/27/17 12/27/17 Narrative: GENERAL: in NAD, SKIN: Warm and dry. HEAD: Atraumatic. Normocephalic. EYES: Pupils equal and round. No scleral icterus. ENT: No nasal bleeding or discharge. Mucous membranes pink and moist. NECK: Trachea midline. No JVD. CARDIOVASCULAR: Regular rate and rhythm. RESPIRATORY: No accessory muscle use. GASTROINTESTINAL: Abdomen soft, non-tender, nondistended. MUSCULOSKELETAL: Extremities without clubbing, cyanosis, or edema. No obvious deformities. NEUROLOGICAL: Awake and alert. No aphasia, fluent articulate, No facial asymmetry, OU 4 mm and sluggish very minimal disconjugate gaze, eomi, VFF, No drift, Motor grossly within normal limits. Five out of 5 muscle strength in the arms and legs. Tone normal in all 4 limbs, Sensory normal in all 4 extremities to pin, msr 1-2+ sym, no clonus, planterflexor, gait not assessed secondary to fall risk PSYCHIATRIC: Appropriate mood and affect; insight and judgment normal. - Constitutional no acute distress - Routine HEENT Exam Head: Present: normocephalic Eye: Present: EOMI Results - Labs CBC & Chem 7: 12/31/17 05:30 12/31/17 05:30 Labs: Laboratory Results - last 24 hr 12/28/17 12/29/17 12/30/17 13:20 09:40 12:06 WBC RBC Hgb Hct MCV MCH MCHC RDW Plt Count MPV Neut % (Auto) Lymph % (Auto) [place] % (Auto) Eos % (Auto) Baso % (Auto) Neut # (Auto) Lymph # (Auto) [place] # (Auto) Eos # (Auto) Baso # (Auto) WBC Differential Differential Comment Sodium Potassium Chloride Carbon Dioxide Anion Gap BUN Creatinine Estimated GFR POC Glucose 252 H Random Glucose Calcium Free PSA 0.6 Total PSA 2.6 PSA Free/Total Ratio 0 Ur 24 Hour Volume Ur Total Protein 24 Hr Tot Complement (CH50) 63 12/30/17 12/30/17 12/31/17 16:43 19:30 05:30 WBC 11.8 H RBC 3.30 L Hgb 9.8 L Hct 28.8 L MCV 87.2 MCH 29.6 MCHC 33.9 RDW 14.9 Plt Count 445 MPV 7.6 Neut % (Auto) 71.0 H Lymph % (Auto) 18.8 [place] % (Auto) 7.4 Eos % (Auto) 1.9 Baso % (Auto) 0.9 Neut # (Auto) 8.4 H Lymph # (Auto) 2.2 [place] # (Auto) 0.9 Eos # (Auto) 0.2 Baso # (Auto) 0.1 WBC Differential . Differential Comment Auto diff final Sodium Potassium Chloride Carbon Dioxide Anion Gap BUN Creatinine Estimated GFR POC Glucose 229 H 284 H Random Glucose Calcium Free PSA Total PSA PSA Free/Total Ratio Ur 24 Hour Volume Ur Total Protein 24 Hr Tot Complement (CH50) 12/31/17 12/31/17 05:30 05:52 WBC RBC Hgb Hct MCV MCH MCHC RDW Plt Count MPV Neut % (Auto) Lymph % (Auto) [place] % (Auto) Eos % (Auto) Baso % (Auto) Neut # (Auto) Lymph # (Auto) [place] # (Auto) Eos # (Auto) Baso # (Auto) WBC Differential Differential Comment Sodium 142 Potassium 4.2 Chloride 110 H Carbon Dioxide 22.0 Anion Gap 10 BUN 33 H Creatinine 2.52 H Estimated GFR 26 L POC Glucose Random Glucose 94 Calcium 8.2 L Free PSA Total PSA PSA Free/Total Ratio Ur 24 Hour Volume 1550 Ur Total Protein 24 Hr 3638 H Tot Complement (CH50) - Imaging Impressions Head MRI 12/30/17 00:00 CONCLUSION: 1. 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 2. No other acute intracranial abnormality demonstrated. Mild chronic white matter changes. 3. Paranasal sinus disease. Review/Management - Diagnosis (1) Acute lacunar stroke Code(s): I63.9 - Cerebral infarction, unspecified Status: Acute Current Visit: Yes (2) Acute kidney injury Code(s): N17.9 - Acute kidney failure, unspecified Status: Acute Current Visit: Yes (3) HTN (hypertension) Code(s): I10 - Essential (primary) hypertension Status: Acute Current Visit : Yes (4) Diabetes Code(s): E11.9 - Type 2 diabetes mellitus without complications Status: Acute Current Visit: Yes (5) Anemia Code(s): D64.9 - Anemia, unspecified Status: Acute Current Visit: Yes - Review/Management Plan: Very tiny right lateral medullary infarct May explain gait imbalance; possibly blurry vision if the sympathetic tracks are involved that send neurons down the brainstem to the spinal cord and travel back up to the pupils Risk factors include diabetes hypertension tobacco use stroke is likely to small vessel disease Recommendations Aspirin Statin Tobacco cessation Follow-up echo MRA brain Follow-up carotid however not responsible for current stroke which is related to posterior circulation ischemia Behavioral modification and risk factor reduction. Weight loss, blood pressure control, blood sugar control, lipid control. Exercise
[2017-12-31] MEDS: Insulin NovoLOG Aspart Correctional Sugar Inj SQ SCH ×4 (10:47→20:57)
[2017-12-31] MEDS ORDERED: Polyethylene Glycol 3350 17 GM Packet PO ONE (12:00)
--- NOTE | 2017-12-31 13:00 | US ---
EXAM DATE: 12/31/2017 12:00 AM EDT AGE/SEX: 67 years / Male INDICATIONS: Syncope. CLINICAL DATA: This is the patient's initial encounter. Patient reports that signs and symptoms have been present for 3 days and indicates a pain score of 0/10. MEDICAL/SURGICAL HISTORY: Chronic obstructive pulmonary disease. Diabetes. Hypertension. Ost eoarthritis. None. COMPARISON: No prior exams available for comparison. VELOCITY PARAMETERS: ICA/CCA Ratio: Right 1.7 , Left 1.1 ICA: Right 102 cm/sec, Left 111 cm/sec CCA: Right 60 cm/sec, Left 97 cm/sec ECA: Right 312 cm/sec, Left 275 cm/sec Vertebral: Right 69 cm/sec antegrade, Left 86 cm/sec antegrade FINDINGS: Right Carotid: No significant plaque is visualized.The waveforms are within normal limits. Left Carotid: No significant plaque is visualized. The waveforms are within normal limits. Other: None. CONCLUSION: 1. No significant stenosis in the common carotid or internal carotid arteries. 2. Elevated velocities in the external carotid arteries of unclear clinical significance. 3. The vertebral arteries are intact and demonstrate normal antegrade flow. Electronically signed by: Kayden Grande MD 12/31/2017 12:59 PM EDT
[2017-12-31] MEDS ORDERED: Polyethylene Glycol 3350 17 GM Packet PO PRN (14:09)
--- NOTE | 2017-12-31 14:13 | MR ---
EXAM DATE: 12/31/2017 12:29 PM EDT AGE/SEX: 67 years / Male INDICATIONS: . Right sided weakness. CLINICAL DATA: This is the patient's subsequent encounter. Patient reports that signs and symptoms h ave been present for 3 days and indicates a pain score of 3/10. MEDICAL/SURGICAL HISTORY: Diabetes mellitus type II. Chronic obstructive pulmonary disease. H ypertension. None. COMPAR[place]: [facility] [place], [place]/2017. [facility] [place]AST, 12/27/2017. . TECHNIQUE: 3D [id number] MRA was performed. Source images, multiplanar STS MIP, and 3D volum e MIP reconstructions were reviewed. FINDINGS: There is excellent visualization of the major intracranial arteries out to the second-order branch ve ssels. There is no evidence for aneurysm, vessel truncation or stenosis, and no evidence for vascula r malformation. There are patent bilateral posterior communicating arteries. CONCLUSION: 1. Negative MRA [place] ([place] [facility] [place]) non contrast. Electronically signed by: Matthieu An MD 12/31/2017 2:11 PM EDT
--- NOTE | 2017-12-31 19:27 | MR ---
EXAM DATE: 12/31/2017 4:04 PM EDT AGE/SEX: 67 years / Male INDICATIONS: Stenosis. CLINICAL DATA: This is the patient's subsequent encounter. Patient reports that signs and symptoms h ave been present for 3 days and indicates a pain score of 0/10. MEDICAL/SURGICAL HISTORY: Chronic obstructive pulmonary disease. Diabetes. Hypertension. None . COMPARISON: [facility] – [place] HEAD W/O CONTRAST, 12/30/2017. [facility] – [place], MRA HEAD W/O CONTRAST, 12/31/2017. . TECHNIQUE: 3D time-of- flight MRA of the extracranial circulation was performed using a neurovascul ar coil. Post processing was performed including rotating sub-volume maximum intensity projections o f each carotid artery, rotating full-volume maximum intensity projections of both carotid arteries, s agittal and coronal sliding thin-slab reformations of each carotid artery, and left oblique sliding t hin-slab reformation through the aortic arch to include the origin of the arch branch vessels. FINDINGS: Aortic Arch : Left vertebral artery origin appears to be directly off of the arch. No evidence of o stial narrowing. Right Carotid : The common carotid artery is intact. The carotid bulb has a normal configuration wi thout ulceration or narrowing. The internal carotid artery lumen is smooth without stenosis. The ex ternal carotid artery is intact. Left Carotid : The common carotid artery is intact. The carotid bulb has a normal configuration wit hout ulceration or narrowing. The internal carotid artery lumen is smooth without stenosis. The ext ernal carotid artery is intact. Vertebrals : There is short segment nonfilling of the right vertebral artery approximately 1.7 cm pro ximal to the basilar confluence, best seen on series 354 image 3. This is adjacent to the pontine inf arct. Today's source images suggest a possible extrinsic etiology and/or wall thickening to the right vertebral artery nonfilling although a short segment thrombosis would be more likely. CONCLUSION: 1. Short segment nonfilling of the right vertebral artery at the level of the skull base as describe d. This is adjacent to the focal pontine infarct seen on yesterday's noncontrast MRI. A high-resoluti on contrast enhanced MRI of the brain is recommended. 2. No stenosis or other acute abnormality of the carotids. Percent stenosis is calculated using the diameter of the stenotic region over the diameter of the nor mal distal internal carotid artery Electronically signed by: Gm Herrera MD 12/31/2017 7:26 PM EDT
[2018-01-01 06:17] LABS: Baso # (Auto) 0.1 th/mm3 (0.0-0.2); Baso % (Auto) 0.9 % (0.0-2.0); Eos # (Auto) 0.3 th/mm3 (0.0-0.4); Hematocrit 28.8 % (39.0-51.0); Hemoglobin 9.7 gm/dL (13.0-17.0); Lymph # (Auto) 2.3 th/mm3 (1.0-4.8); Lymph % (Auto) 21.1 % (9.0-44.0); Mean Corpuscular HGB Conc 33.7 % (32.0-36.0); Mean Corpuscular Hemoglobin 29.3 pg (27.0-34.0); Mean Corpuscular Volume 86.9 fL (80.0-100.0); Mean Platelet Volume 7.5 fL (7.0-11.0); Mono # (Auto) 0.9 th/mm3 (0.0-0.9); Mono % (Auto) 7.8 % (0.0-8.0); Neut # (Auto) 7.4 th/mm3 (1.8-7.7); Neut % (Auto) 67.2 % (16.0-70.0); Platelet Count 442 th/mm3 (150-450); Red Blood Count 3.31 mil/mm3 (4.50-5.90); Red Cell Distribution Width 14.8 % (11.6-17.2)
[2018-01-01 06:27] LABS: Albumin 2.7 g/dL (3.4-5.0); Calcium 8.1 mg/dL (8.5-10.1); Carbon Dioxide 23.6 meq/L (21.0-32.0); Phosphorus 3.8 mg/dL (2.5-4.9); Potassium 4.2 meq/L (3.5-5.1)
[2018-01-01] MEDS: amLODIPine 10 MG Tablet PO SCH (08:24)
[2018-01-01] MEDS: Senna/Docusate Sodium 8.6/50 MG Tablet PO SCH ×2 (08:24→20:45)
[2018-01-01] MEDS: Aspirin 325 MG Tablet PO SCH (08:24)
[2018-01-01] MEDS: FLUoxetine 20 MG Capsule PO SCH (08:24)
[2018-01-01 08:27] VITALS: RESP 18
[2018-01-01] MEDS: Insulin NovoLOG Aspart Correctional Sugar Inj SQ SCH ×4 (08:28→20:45)
[2018-01-01] MEDS: Insulin Detemir Inj 1,000 UNIT/10 ML Vial SQ SCH ×2 (08:28→20:46)
[2018-01-01] MEDS ORDERED: Bisacodyl 10 MG Supp RECTAL PRN (09:33)
--- NOTE | 2018-01-01 10:32 | P.PNNP ---
Subjective Interval history: Resting. Reports chronic shortness of breath, constipation, and nauseated this morning. Denies any chest pain. Creatinine essentially unchanged at 2.53 today. <Laura Talamantesne - Last Filed: 01/01/18 10:24> Physical Exam Vital signs: Vital Signs 12/31/17 12:00 12/31/17 13:35 12/31/17 16:00 Temperature 98.9 F 97.3 F L Pulse Rate 94 H 93 H Respiratory Rate 18 18 17 Blood Pressure 177/79 H 173/77 H Pulse Oximetry 94 L 93 L 12/31/17 18:04 12/31/17 20:00 12/31/17 20:47 Temperature 97.8 F Pulse Rate 94 H 92 H Respiratory Rate 18 17 16 Blood Pressure 150/68 H Pulse Oximetry 93 L 12/31/17 23:55 01/01/18 00:00 01/01/18 04:00 Temperature 98.3 F 98.5 F Pulse Rate 98 H 96 H 89 Respiratory Rate 17 17 Blood Pressure 154/70 H 162/75 H Pulse Oximetry 95 94 L 01/01/18 08:00 Temperature 98.4 F Pulse Rate 91 H Respiratory Rate 18 Blood Pressure 177/79 H Pulse Oximetry 92 L Intake & Output 12/31/17 01/01/18 01/01/18 18:59 06:59 18:59 Intake Total 960 / 960 Output Total 750 / 750 525 / 525 Balance 210 / 210 -525 / -525 Intake: Oral 960 / 960 Output: Urine Amount (Catheter) 750 / 750 525 / 525 Indwelling Urethral Catheter 750 / 750 525 / 525 Other: Date of Last Bowel Movement 01/26/18 01/26/18 12/27/17 Narrative: GENERAL: Alert and oriented SKIN: Warm and dry. HEAD: Normocephalic. EYES: No scleral icterus. No injection or drainage. NECK: Supple, trachea midline. No JVD or lymphadenopathy. CARDIOVASCULAR: Regular rate and rhythm without murmurs, gallops, or rubs. RESPIRATORY: Breath sounds equal bilaterally. No accessory muscle use. GASTROINTESTINAL: Abdomen soft, non-tender, nondistended. MUSCULOSKELETAL: No cyanosis, or edema. BACK: Nontender without obvious deformity. No CVA tenderness. - Urinary Catheter Management Indwelling Urethral Catheter Cath placed during this visit: yes, but has since been removed by the nurse Reason for continuing: Acute urinary retention Insertion date: 12/28/17 Insertion time: 09:20 Removal date: 12/30/17 Removal time: 14:30 <Ev Talamantes - Last Filed: 01/01/18 10:24> - Urinary Catheter Management Indwelling Urethral Catheter Cath placed during this visit: no <Zana Marie Durga - Last Filed: 01/10/18 11:28> Assessment and Plan - Assessment (1) Acute kidney injury Code(s): N17.9 - Acute kidney failure, unspecified Status: Acute Plan: Acute kidney injury with a creatinine of 2.98 and potassium level 4.1 on day of consult On admission creatinine was as high as 3.08 and has had hyperkalemia. Acute kidney injury with FeNA of 2.49 % suggestive of ATN possibly from infection Creatinine on 04/26/16 was at 1.70 so has past medical history of chronic kidney disease most likely from diabetes or hypertensive disease. Urine also noted with 500 or more protein, 24 hour urine with 3.6 gms of protein. Complements are normal Creatinine stable at at 2.5 possibly baseline, good urinary output Plan Avoid nephrotoxins including NSAIDS, IV contrast, and aminoglycosides Patient will need kidney biopsy but currently on ASA and recent stroke. Continue low potassium diabetic diet Continue to hold lisinopril as creatinine still elevated and recent hyperkalemia , can be started at later date Will follow urinary output and BMP labs in am (2) HTN (hypertension) Code(s): I10 - Essential (primary) hypertension Status: Acute Plan: Remains hypertensive. Will add clonidine BID. (3) Diabetes Code(s): E11.9 - Type 2 diabetes mellitus without complications Status: Acute Plan: Blood sugars labile Recommend to Maintain blood sugars between 140 mg/dl to 180 mg/dl while hospitalized. (4) Anemia Code(s): D64.9 - Anemia, unspecified Status: Acute Plan: HGB at stable May benefit from Procrit however patient is hypertensive. (5) Current smoker Code(s): F17.200 - Nicotine dependence, unspecified, uncomplicated Status: Acute Plan: tobacco cessation recommended to preserve kidney function. <Ev Talamantes - Last Filed: 01/01/18 10:24> - Assessment (1) Acute kidney injury Code(s): N17.9 - Acute kidney failure, unspecified Status: Acute Plan: Patient seen and examined, agree with above. Has Nephrotic proteinuria and will need kidney Biopsy, possibly as out patient. Lisinopril is on hold for now. If discharge, I will follow as out patient. (2) HTN (hypertension) Code(s): I10 - Essential (primary) hypertension Status: Acute (3) Diabetes Code(s): E11.9 - Type 2 diabetes mellitus without complications Status: Acute (4) Anemia Code(s): D64.9 - Anemia, unspecified Status: Acute (5) Current smoker Code(s): F17.200 - Nicotine dependence, unspecified, uncomplicated Status: Acute <Gen Marie - Last Filed: 01/10/18 11:28>
--- NOTE | 2018-01-01 11:04 | P.PNFP ---
Subjective Interval history: No acute events overnight. Patient resting in bed this morning. States that he has been very nauseated and had some episodes of nonbloody, nonbilious vomiting. He is able to eat breakfast this morning. He states that he has not had a bowel movement since being admitted. Patient is open to getting a suppository if p.o. laxatives are not effective. Patient denies fevers, chest pain, shortness of breath, and abdominal pain. <Uma Lucio T - 01/01/18 14:09> Results - Labs Result diagrams: 01/01/18 05:23 01/01/18 05:23 <Kayden Rinaldi - 01/01/18 17:35> Abnormal lab results 12/31/17 12/31/17 12/31/17 Range/Units 19:10 20:51 21:09 RBC (4.50-5.90) mil/mm3 Hgb (13.0-17.0) gm/dL Hct (39.0-51.0) % ESR 60 H (0-20) mm/hr Chloride (98-107) meq/L BUN (7-18) mg/dL Creatinine (0.60-1.30) mg/dL Estimated GFR (>89) mL/min POC Glucose 125 H 267 H (68-110) mg/dl Random Glucose (74-106) mg/dL Calcium (8.5-10.1) mg/dL C-Reactive Protein (0.00-0.30) mg/dL Albumin (3.4-5.0) g/dL 12/31/17 01/01/18 01/01/18 Range/Units 21:09 05:23 05:23 RBC 3.31 L (4.50-5.90) mil/mm3 Hgb 9.7 L (13.0-17.0) gm/dL Hct 28.8 L (39.0-51.0) % ESR (0-20) mm/hr Chloride 109 H (98-107) meq/L BUN 32 H (7-18) mg/dL Creatinine 2.53 H (0.60-1.30) mg/dL Estimated GFR 26 L (>89) mL/min POC Glucose (68-110) mg/dl Random Glucose 72 L (74-106) mg/dL Calcium 8.1 L (8.5-10.1) mg/dL C-Reactive Protein 1.30 H (0.00-0.30) mg/dL Albumin 2.7 L (3.4-5.0) g/dL 01/01/18 01/01/18 Range/Units 11:29 17:05 RBC (4.50-5.90) mil/mm3 Hgb (13.0-17.0) gm/dL Hct (39.0-51.0) % ESR (0-20) mm/hr Chloride (98-107) meq/L BUN (7-18) mg/dL Creatinine (0.60-1.30) mg/dL Estimated GFR (>89) mL/min POC Glucose 174 H 192 H (68-110) mg/dl Random Glucose (74-106) mg/dL Calcium (8.5-10.1) mg/dL C-Reactive Protein (0.00-0.30) mg/dL Albumin (3.4-5.0) g/dL Short CBC 01/01/18 Range/Units 05:23 WBC 11.0 (4.0-11.0) th/mm3 Hgb 9.7 L (13.0-17.0) gm/dL Hct 28.8 L (39.0-51.0) % Plt Count 442 (150-450) th/mm3 BMP 01/01/18 05:23 Sodium 141 Potassium 4.2 Chloride 109 H Carbon Dioxide 23.6 BUN 32 H Creatinine 2.53 H Calcium 8.1 L Liver Function 01/01/18 Range/Units 05:23 Albumin 2.7 L (3.4-5.0) g/dL <Kayden Rinaldi - 01/01/18 17:35> Abnormal lab results 12/31/17 12/31/17 12/31/17 Range/Units 12:03 17:05 19:10 RBC (4.50-5.90) mil/mm3 Hgb (13.0-17.0) gm/dL Hct (39.0-51.0) % ESR (0-20) mm/hr Chloride (98-107) meq/L BUN (7-18) mg/dL Creatinine (0.60-1.30) mg/dL Estimated GFR (>89) mL/min POC Glucose 132 H 175 H 125 H (68-110) mg/dl Random Glucose (74-106) mg/dL Calcium (8.5-10.1) mg/dL C-Reactive Protein (0.00-0.30) mg/dL Albumin (3.4-5.0) g/dL 12/31/17 12/31/17 12/31/17 Range/Units 20:51 21:09 21:09 RBC (4.50-5.90) mil/mm3 Hgb (13.0-17.0) gm/dL Hct (39.0-51.0) % ESR 60 H (0-20) mm/hr Chloride (98-107) meq/L BUN (7-18) mg/dL Creatinine (0.60-1.30) mg/dL Estimated GFR (>89) mL/min POC Glucose 267 H (68-110) mg/dl Random Glucose (74-106) mg/dL Calcium (8.5-10.1) mg/dL C-Reactive Protein 1.30 H (0.00-0.30) mg/dL Albumin (3.4-5.0) g/dL 01/01/18 01/01/18 Range/Units 05:23 05:23 RBC 3.31 L (4.50-5.90) mil/mm3 Hgb 9.7 L (13.0-17.0) gm/dL Hct 28.8 L (39.0-51.0) % ESR (0-20) mm/hr Chloride 109 H (98-107) meq/L BUN 32 H (7-18) mg/dL Creatinine 2.53 H (0.60-1.30) mg/dL Estimated GFR 26 L (>89) mL/min POC Glucose (68-110) mg/dl Random Glucose 72 L (74-106) mg/dL Calcium 8.1 L (8.5-10.1) mg/dL C-Reactive Protein (0.00-0.30) mg/dL Albumin 2.7 L (3.4-5.0) g/dL Short CBC 01/01/18 Range/Units 05:23 WBC 11.0 (4.0-11.0) th/mm3 Hgb 9.7 L (13.0-17.0) gm/dL Hct 28.8 L (39.0-51.0) % Plt Count 442 (150-450) th/mm3 BMP 01/01/18 05:23 Sodium 141 Potassium 4.2 Chloride 109 H Carbon Dioxide 23.6 BUN 32 H Creatinine 2.53 H Calcium 8.1 L Liver Function 01/01/18 Range/Units 05:23 Albumin 2.7 L (3.4-5.0) g/dL <Uma Lucio T - 01/01/18 11:04> - Imaging Impressions Neck MRA 12/31/17 15:59 CONCLUSION: 1. Short segment nonfilling of the right vertebral artery at the level of the skull base as described. This is adjacent to the focal pontine infarct seen on yesterday's noncontrast MRI. A high-resolution contrast enhanced MRI of the brain is recommended. 2. No stenosis or other acute abnormality of the carotids. _ Percent stenosis is calculated using the diameter of the stenotic region over the diameter of the normal distal internal carotid artery _ <Kayden Rinaldi - 01/01/18 17:35> Impressions Carotid Doppler Study 12/31/17 00:00 CONCLUSION: 1. No significant stenosis in the common carotid or internal carotid arteries. 2. Elevated velocities in the external carotid arteries of unclear clinical significance. 3. The vertebral arteries are intact and demonstrate normal antegrade flow. Head MRA 12/31/17 10:10 CONCLUSION: 1. Negative MRA [place] ([place]) non contrast. Neck MRA 12/31/17 15:59 CONCLUSION: 1. Short segment nonfilling of the right vertebral artery at the level of the skull base as described. This is adjacent to the focal pontine infarct seen on yesterday's noncontrast MRI. A high-resolution contrast enhanced MRI of the brain is recommended. 2. No stenosis or other acute abnormality of the carotids. _ Percent stenosis is calculated using the diameter of the stenotic region over the diameter of the normal distal internal carotid artery _ <Uma Lucio T - 01/01/18 11:04> Physical Exam Vital signs: Vital Signs 12/31/17 18:04 12/31/17 20:00 12/31/17 20:47 Temperature 97.8 F Pulse Rate 94 H 92 H Respiratory Rate 18 17 16 Blood Pressure 150/68 H Pulse Oximetry 93 L 12/31/17 23:55 01/01/18 00:00 01/01/18 04:00 Temperature 98.3 F 98.5 F Pulse Rate 98 H 96 H 89 Respiratory Rate 17 17 Blood Pressure 154/70 H 162/75 H Pulse Oximetry 95 94 L 01/01/18 08:00 01/01/18 12:00 01/01/18 16:00 Temperature 98.4 F 98.1 F 98.3 F Pulse Rate 91 H 94 H 92 H Respiratory Rate 18 18 18 Blood Pressure 177/79 H 135/61 148/78 H Pulse Oximetry 92 L 94 L 94 L Intake & Output 12/31/17 01/01/18 01/01/18 18:59 06:59 18:59 Intake Total 960 / 960 Output Total 750 / 750 525 / 525 Balance 210 / 210 -525 / -525 Intake: Oral 960 / 960 Output: Urine Amount (Catheter) 750 / 750 525 / 525 Indwelling Urethral Catheter 750 / 750 525 / 525 Other: Date of Last Bowel Movement 01/26/18 01/26/18 12/27/17 <Kayden Rinaldi - 01/01/18 17:35> Vital Signs 12/31/17 12:00 12/31/17 13:35 12/31/17 16:00 Temperature 98.9 F 97.3 F L Pulse Rate 94 H 93 H Respiratory Rate 18 18 17 Blood Pressure 177/79 H 173/77 H Pulse Oximetry 94 L 93 L 12/31/17 18:04 12/31/17 20:00 12/31/17 20:47 Temperature 97.8 F Pulse Rate 94 H 92 H Respiratory Rate 18 17 16 Blood Pressure 150/68 H Pulse Oximetry 93 L 12/31/17 23:55 01/01/18 00:00 01/01/18 04:00 Temperature 98.3 F 98.5 F Pulse Rate 98 H 96 H 89 Respiratory Rate 17 17 Blood Pressure 154/70 H 162/75 H Pulse Oximetry 95 94 L 01/01/18 08:00 Temperature 98.4 F Pulse Rate 91 H Respiratory Rate 18 Blood Pressure 177/79 H Pulse Oximetry 92 L Intake & Output 12/31/17 01/01/18 01/01/18 18:59 06:59 18:59 Intake Total 960 / 960 Output Total 750 / 750 525 / 525 Balance 210 / 210 -525 / -525 Intake: Oral 960 / 960 Output: Urine Amount (Catheter) 750 / 750 525 / 525 Indwelling Urethral Catheter 750 / 750 525 / 525 Other: Date of Last Bowel Movement 01/26/18 01/26/18 12/27/17 <Uma Lucio - 01/01/18 11:04> Narrative: GENERAL: Alert and oriented SKIN: Warm and dry. HEAD: Normocephalic. EYES: No scleral icterus. No injection or drainage. NECK: Supple, trachea midline. No JVD or lymphadenopathy. CARDIOVASCULAR: Regular rate and rhythm without murmurs, gallops, or rubs. RESPIRATORY: wheezing throughout, improved from prior. No accessory muscle use. GASTROINTESTINAL: Abdomen soft, non-tender, nondistended. MUSCULOSKELETAL: No cyanosis, or edema. BACK: Nontender without obvious deformity. No CVA tenderness. : Carranza catheter in place <Uma Lucio 01/01/18 14:09> - Urinary Catheter Management Indwelling Urethral Catheter Cath placed during this visit: no <Kayden Rinaldi 01/01/18 17:35> yes, but has since been removed by the nurse <Uma Lucio 01/01/18 14:09> Reason for continuing: Acute urinary retention <Uma Lucio Garcia T 01/01/18 11 :04> Insertion date: 12/28/17 <Uma Lucio Garcia T - 01/01/18 11:04> Insertion time: 09:20 <Uma Lucio Garcia T 01/01/18 11:04> Removal date: 12/30/17 <Uma Lucio Garcia T 01/01/18 11:04> Removal time: 14:30 <Uma Lucio Garcia T 01/01/18 11:04> Assessment and Plan - Assessment (1) Acute kidney injury Code(s): N17.9 - Acute kidney failure, unspecified Status: Acute (2) Abnormal weight loss Code(s): R63.4 - Abnormal weight loss Status: Acute (3) COPD (chronic obstructive pulmonary disease) Code(s): J44.9 - Chronic obstructive pulmonary disease, unspecified Status: Acute (4) Diabetes Code(s): E11.9 - Type 2 diabetes mellitus without complications Status: Acute (5) Current smoker Code(s): F17.200 - Nicotine dependence, unspecified, uncomplicated Status: Acute (6) Nutrition, metabolism, and development symptoms Code(s): R63.8 - Other symptoms and signs concerning food and fluid intake Status: Acute (7) Infected tooth Code(s): K04.7 - Periapical abscess without sinus Status: Acute (8) Hepatitis Code(s): K75.9 - Inflammatory liver disease, unspecified Status: Acute (9) Acute lacunar stroke Code(s): I63.9 - Cerebral infarction, unspecified Status: Acute (10) Urinary obstruction, unspecified Code(s): N13.9 - Obstructive and reflux uropathy, unspecified Status: Acute <Kayden Rinaldi 01/01/18 17:35> (1) Acute kidney injury Code(s): N17.9 - Acute kidney failure, unspecified Status: Acute Plan: (2) Abnormal weight loss Code(s): R63.4 - Abnormal weight loss Status: Acute (3) COPD (chronic obstructive pulmonary disease) Code(s): J44.9 - Chronic obstructive pulmonary disease, unspecified Status: Acute (4) Diabetes Code(s): E11.9 - Type 2 diabetes mellitus without complications Status: Acute (5) Current smoker Code(s): F17.200 - Nicotine dependence, unspecified, uncomplicated Status: Acute (6) Nutrition, metabolism, and development symptoms Code(s): R63.8 - Other symptoms and signs concerning food and fluid intake Status: Acute (7) Infected tooth Code(s): K04.7 - Periapical abscess without sinus Status: Acute (8) Hepatitis Code(s): K75.9 - Inflammatory liver disease, unspecified Status: Acute (9) Acute lacunar stroke Code(s): I63.9 - Cerebral infarction, unspecified Status: Acute (10) Urinary obstruction, unspecified Code(s): N13.9 - Obstructive and reflux uropathy, unspecified Status: Acute <Uma Lucio T - 01/01/18 13:49> - Assessment and Plan Patient is a 67-year-old male who presented with a syncopal episode, 20 pound weight loss, and KAYLA. He was found to have acute lacunar stroke. Acute lacunar stroke: -Neurology consulted, appreciate recommendations. -Tiny right lateral medullary infarct -MRA brain-negative MRA [place] noncontrast -Neck MRA-short segment nonfilling of the right vertebral artery at the level of skull base. No stenosis or other acute abnormality of the carotids. -Continue aspirin and statin -Patient will be going to rehab upon discharge -Follow-up with neurology as outpatient KAYLA on CKD: -Creatinine trending down. Creatinine of 1.7 in April be his baseline, however this is unclear. -Nephrology was consulted and is following with us -FeNa of 2.49, likely not due to prerenal disease -Significant proteinuria, 3.6g over 24h -Complement normal, JOCELYNN and ANCA pending -Continue to hold lisinopril -Avoid nephrotoxic agents -Patient will follow up outpatient with nephrology Urinary Obstruction: -continue Flomax -Patient failed voiding trial after carranza catheter removed -C[place] catheter replaced 12/31- will be discharged with carranza catheter and follow up with urology outpatient Unintentional weight loss: -CT chest, abdomen, and pelvis without contrast were normal -HIV nonreactive -PSA normal -Not UTD on colonoscopy -Hemmoccult negative, performed in the ED on admission Hepatitis: -AST 14, ALT 18 , Alk phos 88 -Positive for hepatitis C exposure and for recent hepatitis B exposure. Hep C genotype and viral load pending. -Patient most likely will follow up with GI outpatient. PCP to send referral. Diabetes: Continue HS Levemir 15 units Continue 25 units Levemir AM low dose SS hypoglycemia protocol in place COPD: Patient currently not on home oxygen Patient reports being on home albuterol nebs as needed Wheezing noted throughout all lung rojas noted on physical exam, improved from prior DuoNeb every 4 hours HTN Hold lisinopril due to renal function Continue home medication amlodipine Continue Hydralazine 100 mg p.o. 3 times daily Constipation: No BM since hospitalization Senna/Docusate daily Miralax TID PRN Will give patient Lactulose and consider suppository Leukocytosis: Resolved Blood cultures: NGTD Urine cx negative Dental infection: Clindamycin 450 mg p.o. every 8 hours (12/28-01/01) Patient continues to have worsening pain, will switch patient to Amoxicillin 500mg BID Proximal phalanx fracture -Seen by hand surgery, splint in place -Follow-up 3 weeks as an outpatient Fluids: Adequate p.o. intake Electrolytes: monitor and replete as needed Nutrition: Renal diet with low potassium GI prophylaxis: not indicated VTE prophylaxis: Lovenox Disposition: Patient will need PT @ rehab <NaveedDottiemariano Higginbotham - 01/01/18 14:09> - Attending Attestation The exam, history, and the medical decision-making described in the above note were completed with the assistance of the resident physician. I reviewed and agree with the findings presented. I attest that I had a [id number] encounter with the patient on the same day, and personally performed and documented my assessment and findings in the medical record. Still no BM since first day of admission and feeling a little nauseous on exam. Will give lactulose + enema for BM before discharge today. HCV viral load negative. Will go home today with carranza and follow up with nephrology, urology, GI, hand surgery, and PCP. <Kayden Rinaldi - 01/01/18 17:35>
[2018-01-01 12:09] VITALS: O2SAT 94
[2018-01-01 16:02] VITALS: BP 148/78; PULSE 92; TEMP 98.3
[2018-01-01] MEDS ORDERED: Mineral Oil Enema 118 ML Bottle RECTAL ONE (16:45)
--- NOTE | 2018-01-01 22:05 | P.DS ---
Date of admission: 12/28/17 01:27 Primary care physician: UNKNOWN Brief History from admission: 67-year-old male with COPD, hypertension, and diabetes presents to the ED for syncopal episode. Patient reports that he saw his PCP, Dr. Kayden Love yesterday. Patient was being worked up for several things. Patient has had a one-month history of nausea and vomiting. He states that he was having nonbloody, nonbilious vomiting 1 time per day for a couple weeks and then decreased vomiting to 2-3 times per week. Patient reports that he has also had a 20 pound weight loss in the past month or two. Due to patient's extensive smoking history, nausea vomiting, and weight loss, outpatient CT was ordered for patient. Denies fevers, night sweats, dysuria, hematochezia, or abdominal pain and melena. Patient reports that he has never had a colonoscopy. Patient also reports that he was also sent home with amoxicillin 500 mg every 8h for a tooth infection. Patient reports that he has pain in his right top wisdom tooth. He reports it has been hurting for about 1 week. He does not currently have a dentist. States that he has been taking ibuprofen w/ mild relief for the past 3 days for toothache. This evening, while patient was cooking, patient recently passed out around 9: 30 PM. Patient was brought to the ED via ambulance. Syncope episode was witnessed by girlfriend. Patient reports losing consciousness for a couple of minutes. He fell on his left hand and reports that it is painful and it is hard to bend his fingers. He did not hit his head. He denies tongue biting, loss of bowel or bladder control, palpitations, and diaphoresis. He does endorse weakness in his legs. Patient reports that this is his first syncopal episode. Denies history of seizures and history of cardiac issues. 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 DS: Diagnosis - Discharge Diagnosis (1) Acute kidney injury Status: Acute (2) Abnormal weight loss Status: Acute (3) COPD (chronic obstructive pulmonary disease) Status: Acute (4) Diabetes Status: Acute (5) Current smoker Status: Acute (6) Nutrition, metabolism, and development symptoms Status: Acute (7) Infected tooth Status: Acute (8) Hepatitis Status: Acute (9) Acute lacunar stroke Status: Acute (10) Urinary obstruction, unspecified Status: Acute DS: Medications - Discharge Medications Prescriptions: amlodipine [Norvasc] 10 mg PO DAILY #90 tab atorvastatin 80 mg PO HS #90 tab fluoxetine 40 mg PO DAILY #90 cap polyethylene glycol 3350 [Miralax] 17 g PO DAILY #10 ea tamsulosin 0.4 mg PO DAILY #90 cap DS: Summary Hospital Course: 67-year-old male who presented with a syncopal episode, 20 pound weight loss, and KAYLA, admitted on 12/27. Was found to have acute lacunar stroke on brain MRI. Neurology was consulted. Found to have a tiny right lateral medullary infarct. Neck MRA demonstrated short segment nonfilling of the right vertebral artery at the level of skull base. No stenosis or other acute abnormality of the carotids. Patient was continued on aspirin and statin. Discharge to SNF for rehab. Due to syncopal episode, patient had proximal phalanx fracture of left hand. Hand surgery was consulted. Splint placed. Patient to follow-up 3 weeks as an outpatient with hand surgery. Patient also had KAYLA on top of CKD upon admission. Nephrology was consulted. FENA of 2.49, likely not due to prerenal disease. Patient's lisinopril was held. Patient was to follow with outpatient with nephrology, Dr. Marie. Patient was found to have urinary obstruction. Douglas catheter was placed during hospital stay. Patient failed voiding trial after Douglas catheter removed. Patient was also started on Flomax. Patient was discharged with a Douglas catheter and PCP to put a referral for outpatient urology. As far as unintentional weight loss, patient was positive for hep C and recent hep B exposure. Hep C viral load negative. Patient to follow-up with GI as an outpatient. PCP to send referral. On day of discharge, patient received enema due to being constipated. Patient was discharged to SNF on 01/01 with a Douglas catheter and to follow-up with nephrology, urology, GI, hand surgery, and PCP. - Time Spent with Patient Total time spent providing and/or coordinating discharge services: Less than 30 minutes - Quality: VTE Deep Vein Thrombosis/Pulmonary Embolism Present on Admission: No Exam Vital signs: Vital Signs 12/31/17 23:55 01/01/18 00:00 01/01/18 04:00 Temperature 98.3 F 98.5 F Pulse Rate 98 H 96 H 89 Respiratory Rate 17 17 Blood Pressure 154/70 H 162/75 H Pulse Oximetry 95 94 L 01/01/18 08:00 01/01/18 12:00 01/01/18 16:00 Temperature 98.4 F 98.1 F 98.3 F Pulse Rate 91 H 94 H 92 H Respiratory Rate 18 18 18 Blood Pressure 177/79 H 135/61 148/78 H Pulse Oximetry 92 L 94 L 94 L Intake & Output 01/01/18 01/01/18 01/02/18 06:59 18:59 06:59 Intake Total 900 / 900 Output Total 525 / 525 650 / 650 Balance -525 / -525 250 / 250 Intake: Oral 900 / 900 Output: Urine Amount (Catheter) 525 / 525 650 / 650 Indwelling Urethral Catheter 525 / 525 650 / 650 Other: Date of Last Bowel Movement 01/26/18 01/01/18 # Bowel Movements 1 Results Procedures completed during hospitalization: None Labs on day of discharge: Labs from last 24 hours 01/01/18 01/01/18 01/01/18 20:19 17:05 11:29 WBC RBC Hgb Hct MCV MCH MCHC RDW Plt Count MPV Neut % (Auto) Lymph % (Auto) Gem % (Auto) Eos % (Auto) Baso % (Auto) Neut # (Auto) Lymph # (Auto) Gem # (Auto) Eos # (Auto) Baso # (Auto) WBC Differential Differential Comment ESR Sodium Potassium Chloride Carbon Dioxide Anion Gap BUN Creatinine Estimated GFR POC Glucose 261 H 192 H 174 H Random Glucose Calcium Phosphorus C-Reactive Protein Albumin HCV RNA (PCR) IUs/ml HCV RNA PCR log IUs/ml 01/01/18 01/01/18 01/01/18 07:37 05:23 05:23 WBC 11.0 RBC 3.31 L Hgb 9.7 L Hct 28.8 L MCV 86.9 MCH 29.3 MCHC 33.7 RDW 14.8 Plt Count 442 MPV 7.5 Neut % (Auto) 67.2 Lymph % (Auto) 21.1 Gem % (Auto) 7.8 Eos % (Auto) 3.0 Baso % (Auto) 0.9 Neut # (Auto) 7.4 Lymph # (Auto) 2.3 Gem # (Auto) 0.9 Eos # (Auto) 0.3 Baso # (Auto) 0.1 WBC Differential . Differential Comment Auto diff final ESR Sodium 141 Potassium 4.2 Chloride 109 H Carbon Dioxide 23.6 Anion Gap 8 BUN 32 H Creatinine 2.53 H Estimated GFR 26 L POC Glucose 77 Random Glucose 72 L Calcium 8.1 L Phosphorus 3.8 D C-Reactive Protein Albumin 2.7 L HCV RNA (PCR) IUs/ml HCV RNA PCR log IUs/ml 12/31/17 12/31/17 12/29/17 21:09 21:09 09:40 WBC RBC Hgb Hct MCV MCH MCHC RDW Plt Count MPV Neut % (Auto) Lymph % (Auto) Gem % (Auto) Eos % (Auto) Baso % (Auto) Neut # (Auto) Lymph # (Auto) Gem # (Auto) Eos # (Auto) Baso # (Auto) WBC Differential Differential Comment ESR 60 H Sodium Potassium Chloride Carbon Dioxide Anion Gap BUN Creatinine Estimated GFR POC Glucose Random Glucose Calcium Phosphorus C-Reactive Protein 1.30 H Albumin HCV RNA (PCR) IUs/ml HCV RNA PCR log IUs/ml Preliminary micro results at discharge 12/27/17 23:50 Aerobic Blood Culture - Preliminary Blood - Peripheral No growth in 4 days Anaerobic Blood Culture - Preliminary No growth in 4 days 12/27/17 23:55 Aerobic Blood Culture - Preliminary Blood - Peripheral No growth in 4 days Anaerobic Blood Culture - Preliminary No growth in 4 days - Impressions ITS Impressions Head CT 12/27/17 21:35 CONCLUSION: 1. No acute intracranial abnormalities. Right maxillary and sphenoid sinusitis. . Hand X-Ray 12/27/17 22:41 CONCLUSION: Acute fracturing at the proximal aspect of the fourth and fifth proximal phalanges. Wrist X-Ray 12/27/17 22:41 CONCLUSION: Fractures at the proximal aspects of the fourth and fifth proximal phalanges. Chest X-Ray 12/27/17 23:19 CONCLUSION: No acute cardiopulmonary process. Abdomen CT 12/28/17 00:00 CONCLUSION: 1. No definite abnormality to explain the patient's weight loss identified. Chest CT 12/28/17 08:34 CONCLUSION: 1. No acute abnormality is identified to explain the shortness of breath. Very mild emphysematous changes are appreciated. 2. Nonspecific 4.1 cm masslike structure posterior to the medial left clavicle. Given the location adjacent to the sternoclavicular joint and I believe this may represent a hypertrophic synovial process related to a degenerative process. This causing a chronic erosion on the posterior aspect of the medial clavicle. Suggest correlating for any pain in this area. This would ideally be further characterized with elective sternoclavicular joint focused MRI. 3. There is a smooth 8mm nodule in the left upper lobe. Fleischner Society recommendations for a high risk patient suggest follow-up chest CT in approximately 3-[address] 12/28/17 08:35 CONCLUSION: No acute abnormality is identified within the pelvis. Abdomen/Bladder Ultrasound 12/29/17 00:00 CONCLUSION: 1. Mild increased echogenicity of the kidneys suggesting medical renal disease. There is no hydronephrosis. 2. Urinary bladder is decompressed with a Douglas catheter in place. Head MRI 12/30/17 00:00 CONCLUSION: 1. 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 2. No other acute intracranial abnormality demonstrated. Mild chronic white matter changes. 3. Paranasal sinus disease. Carotid Doppler Study 12/31/17 00:00 CONCLUSION: 1. No significant stenosis in the common carotid or internal carotid arteries. 2. Elevated velocities in the external carotid arteries of unclear clinical significance. 3. The vertebral arteries are intact and demonstrate normal antegrade flow. Head MRA 12/31/17 10:10 CONCLUSION: 1. Negative MRA [place] ([place]) non contrast. Neck MRA 12/31/17 15:59 CONCLUSION: 1. Short segment nonfilling of the right vertebral artery at the level of the skull base as described. This is adjacent to the focal pontine infarct seen on yesterday's noncontrast MRI. A high-resolution contrast enhanced MRI of the brain is recommended. 2. No stenosis or other acute abnormality of the carotids. _ Percent stenosis is calculated using the diameter of the stenotic region over the diameter of the normal distal internal carotid artery _ Discharge Plan - Discharge Disposition Patient Disposition: Discharge to SNF - Discharge Condition Condition: Stable - Discharge Order Discharge Orders: Discharge Order (Routine); Ordered 01/01/18 Ordered By: Uma Higginbotham [place] - Physicians Team Primary Care Provider: LAYO, Attending Provider: Kayden Rinaldi Other Providers: Hema Roberts MD ; Gen Marie MD ; [facility] ; Clint Ag MD
== END 2018-01-01 21:02 ==
LOC: NEPE 21:15 → INTOOBSV 23:22 → NEDA 23:22 → NEPFCDU 12-28 00:58 → N06 12-28 15:15
PROVIDERS: ADMIT Family Medicine; ATTEND Family Medicine

== ENCOUNTER 2018-01-03 21:22 | Observation (INO) ==
[2018-01-03] MEDS ORDERED: Pantoprazole Inj 40 MG Vial IV.PUSH ONE (21:56)
[2018-01-03] MEDS ORDERED: Sod Chloride 0.9% Inj 1,000 ML IV.SIG ONE (21:56)
--- NOTE | 2018-01-03 22:10 | ED ---
HPI General Chief complaint: GI Bleed Stated complaint: NASUEA/VOMITING Time Seen by Provider: 01/03/18 21:34 Source: patient and RN notes reviewed Mode of arrival: ambulatory Limitations: no limitations History of Present Illness HPI narrative: 67-year-old male presents to the emergency department via EMS for evaluation nausea and vomiting. Patient states that his emesis is black and tarry. He states this has been an issue for the past month. He was discharged from the hospital on January 01, 2018 after having a stroke. He states that he is on aspirin. He has history of hypertension, diabetes type 2, osteoarthritis, COPD, depression/anxiety, diminished hearing, CVA. Patient denies having a recent endoscopy/colonoscopy. He denies any blood in his stool or dark and tarry stools. He reports associated dizziness and generalized weakness. No syncope. He denies abdominal pain. He states that he usually drinks approximately 6 beers weekly, but has not drank recently as he is in rehab. Moderate severity. Onset (ago): month(s) (1) Relieving factors: none Exacerbating factors: none Associated symptoms: Reports weakness Related Data Home Medications Medication Instructions Recorded Confirmed fluoxetine [Prozac] 40 mg PO DAILY 12/27/17 01/04/18 hydralazine 0.25 mg/kg PO TID 01/04/18 01/04/18 Previous Rx's Medication Instructions Recorded amlodipine [Norvasc] 10 mg PO DAILY #90 tab 01/01/18 amoxicillin 500 mg PO Q12H #20 cap 01/01/18 aspirin 325 mg PO DAILY #90 tab 01/01/18 atorvastatin 80 mg PO HS #90 tab 01/01/18 fluoxetine 40 mg PO DAILY #90 cap 01/01/18 polyethylene glycol 3350 [Miralax] 17 g PO DAILY #10 ea 01/01/18 prochlorperazine maleate 5 mg PO Q6-8H PRN #30 tab 01/01/18 [Compazine] tamsulosin 0.4 mg PO DAILY #90 cap 01/01/18 Allergies Allergy/AdvReac Type Severity Reaction Status Date / Time No Known Allergies Allergy Unknown Abdominal Uncoded 12/27/17 21:20 Pain Review of Systems ROS: all other systems reviewed are negative [facility] Social History Social History Substance History: No History of Abuse Second Hand Smoke Exposure: No Smoking Status: Never smoker Tobacco Type: Cigarettes How Often Do You Have a Drink Containing Alcohol: Never Recent Travel in [place] within the Last 8 Weeks: No Recent Out of Country Travel within the Last 8 Weeks: No Immunization History Tetanus Immunization: >5 Years Exam Narrative Exam Narrative: GENERAL: Well-nourished, well-developed male patient, afebrile. SKIN: Focused skin assessment warm/dry. HEAD: Normocephalic. Atraumatic EYES: No scleral icterus. No injection or drainage. NECK: Supple, trachea midline. No JVD or lymphadenopathy. CARDIOVASCULAR: Regular rate and rhythm without murmurs, gallops, or rubs. RESPIRATORY: Breath sounds equal bilaterally. No accessory muscle use. Lung sounds with end strain extra wheezes noted throughout. GASTROINTESTINAL: Abdomen soft, non-tender, nondistended. No abdominal tenderness to palpation. MUSCULOSKELETAL: No cyanosis, or edema. Patient has a splint to the left wrist/ hand. BACK: Nontender without obvious deformity. No CVA tenderness. RECTAL EXAM: No masses or tenderness, stool is brown. Hemoccult is negative. This is done with YULIANA Reis, at bedside. Procedures Hemaprompt Stool Procedural Steps Taken: specimen placed in appropriate test area, developer placed on specimen and control areas and controls appropriately positive and negative Hemaprompt Stool Result: negative Course Initial Documented Vital Signs Pulse Rate 88 01/03/18 21:36 Respiratory Rate 18 01/03/18 21:36 Blood Pressure 147/66 H 01/03/18 21:36 Pulse Oximetry 95 01/03/18 21:36 Last Documented Vital Signs Temperature 97.9 F 01/04/18 20:00 Pulse Rate 81 01/04/18 20:21 Respiratory Rate 20 01/04/18 20:21 Blood Pressure 151/70 H 01/04/18 20:00 Pulse Oximetry 98 01/04/18 20:21 Critical Care Time Critical Care Time: Yes Total Critical Care Time: 30 Attestation: Patient is 67-year-old male, pale presented for vomiting black diarrhea vomited. Hemoglobin dropped for 2 days from 9.7-8.7. Patient most likely has GI bleed, was treated with IV fluids bolus, Protonix. Case was discussed with hospitalist, patient was admitted.. Medical Decision Making MDM Narrative Medical decision making narrative: 67-year-old male presents to the emergency department for evaluation of emesis that he states is dark and tarry. He has no emesis to be a test of blood at this time. Rectal exam is negative. IV access obtained. EKG, CBC, CMP, CK, troponin, magnesium, lipase, PTT, PT/INR, chest x-ray ordered and pending. Patient is given normal saline 1 L IV bolus, Zofran 4 mg IV. Labs noted, hemoglobin dropped from 9.7-8.7 for 2 days. Patient stool is guaiac negative, no vomiting in the emergency room. Cannot rule out GI bleed. Patient will be admitted to the hospital. He was accepted for admission by under his service. Medical Screen Exam Complete: Yes Emergency Medical Condition: Yes Lab Data Result diagrams: 01/04/18 06:33 01/04/18 06:33 Lab Results 01/03/18 01/03/18 01/03/18 Range/Units 22:04 22:04 22:04 WBC (4.0-11.0) th/mm3 RBC (4.50-5.90) mil/mm3 Hgb (13.0-17.0) gm/dL Hct (39.0-51.0) % MCV (80.0-100.0) fL MCH (27.0-34.0) pg MCHC (32.0-36.0) % RDW (11.6-17.2) % Plt Count (150-450) th/mm3 MPV (7.0-11.0) fL Neut % (Auto) (16.0-70.0) % Lymph % (Auto) (9.0-44.0) % Clark % (Auto) (0.0-8.0) % Eos % (Auto) (0.0-4.0) % Baso % (Auto) (0.0-2.0) % Neut # (Auto) (1.8-7.7) th/mm3 Lymph # (Auto) (1.0-4.8) th/mm3 Clark # (Auto) (0.0-0.9) th/mm3 Eos # (Auto) (0.0-0.4) th/mm3 Baso # (Auto) (0.0-0.2) th/mm3 WBC Differential Differential Comment PT 9.4 L (9.8-11.6) sec INR 0.9 Ratio APTT 17.8 L (24.3-30.1) sec Sodium 137 (136-145) meq/L Potassium 5.0 (3.5-5.1) meq/L Chloride 102 (98-107) meq/L Carbon Dioxide 25.5 (21.0-32.0) meq/L Anion Gap 10 (5-15) meq/L BUN 50 H (7-18) mg/dL Creatinine 3.08 H (0.60-1.30) mg/dL Estimated GFR 20 L (>89) mL/min POC Glucose (68-110) mg/dl Random Glucose 193 H (74-106) mg/dL Calcium 8.5 (8.5-10.1) mg/dL Magnesium 2.3 (1.5-2.5) mg/dL Total Bilirubin 0.3 (0.2-1.0) mg/dL AST 28 (15-37) U/L ALT 24 (12-78) U/L Alkaline Phosphatase 90 (45-117) U/L Troponin I Less than 0.02 L (0.02-0.05) ng/mL Total Protein 7.0 D (6.4-8.2) g/dL Albumin 2.9 L (3.4-5.0) g/dL Lipase 267 (73-393) U/L Urine Color (Yellw/Straw) Urine Clarity (Clear) Urine pH (5.0-8.5) Ur Specific Switch[place] (1.002-1.035) Urine Protein (Neg-Trace) mg/dL Urine Glucose (UA) (Negative) mg/dL Urine Ketones (Negative) mg/dL Urine Occult Blood (Negative) Urine Nitrate (Negative) Urine Bilirubin (Negative) Urine Urobilinogen (Less than 2) mg/dL Ur Leukocyte Esterase (Negative) Urine RBC (0-3) /hpf Urine WBC (0-5) /hpf Hyaline Casts (0-3) /lpf Urine Mucus (Occasional) /lpf Micro UA Comment Ur Microscopic Review Urine Culture Comments Serum Alcohol Less than 3 (0-5) mg/dL Blood Type A Positive Antibody Screen Negative 10/05/18 10/05/18 10/06/18 Range/Units 23:20 23:20 06:33 WBC 13.8 H 16.0 H (4.0-11.0) th/mm3 RBC 2.99 L 2.85 L (4.50-5.90) mil/mm3 Hgb 8.7 L 8.4 L (13.0-17.0) gm/dL Hct 26.5 L 25.1 L (39.0-51.0) % MCV 88.6 88.1 (80.0-100.0) fL MCH 29.0 29.5 (27.0-34.0) pg MCHC 32.7 33.5 (32.0-36.0) % RDW 14.9 14.7 (11.6-17.2) % Plt Count 407 436 (150-450) th/mm3 MPV 7.5 7.9 (7.0-11.0) fL Neut % (Auto) 75.8 H 82.3 H (16.0-70.0) % Lymph % (Auto) 14.4 9.6 (9.0-44.0) % Clark % (Auto) 7.3 6.6 (0.0-8.0) % Eos % (Auto) 1.4 1.0 (0.0-4.0) % Baso % (Auto) 1.1 0.5 (0.0-2.0) % Neut # (Auto) 10.5 H 13.2 H (1.8-7.7) th/mm3 Lymph # (Auto) 2.0 1.5 (1.0-4.8) th/mm3 Clark # (Auto) 1.0 H 1.1 H (0.0-0.9) th/mm3 Eos # (Auto) 0.2 0.2 (0.0-0.4) th/mm3 Baso # (Auto) 0.2 0.1 (0.0-0.2) th/mm3 WBC Differential . . Differential Comment Auto diff final Auto diff final PT (9.8-11.6) sec INR Ratio APTT (24.3-30.1) sec Sodium (136-145) meq/L Potassium (3.5-5.1) meq/L Chloride (98-107) meq/L Carbon Dioxide (21.0-32.0) meq/L Anion Gap (5-15) meq/L BUN (7-18) mg/dL Creatinine (0.60-1.30) mg/dL Estimated GFR (>89) mL/min POC Glucose (68-110) mg/dl Random Glucose (74-106) mg/dL Calcium (8.5-10.1) mg/dL Magnesium (1.5-2.5) mg/dL Total Bilirubin (0.2-1.0) mg/dL AST (15-37) U/L ALT (12-78) U/L Alkaline Phosphatase (45-117) U/L Troponin I (0.02-0.05) ng/mL Total Protein (6.4-8.2) g/dL Albumin (3.4-5.0) g/dL Lipase (73-393) U/L Urine Color Straw (Yellw/Straw) Urine Clarity Clear (Clear) Urine pH 7.0 (5.0-8.5) Ur Specific [place] 1.010 (1.002-1.035) Urine Protein 100 H (Neg-Trace) mg/dL Urine Glucose (UA) 50 (Negative) mg/dL Urine Ketones Negative (Negative) mg/dL Urine Occult Blood Negative (Negative) Urine Nitrate Negative (Negative) Urine Bilirubin Negative (Negative) Urine Urobilinogen Less than 2 (Less than 2) mg/dL Ur Leukocyte Esterase Negative (Negative) Urine RBC Less than 1 (0-3) /hpf Urine WBC 1 (0-5) /hpf Hyaline Casts 1 (0-3) /lpf Urine Mucus Few H (Occasional) /lpf Micro UA Comment Cath-culture not ind Ur Microscopic Review Not Reportable Urine Culture Comments Cath-cult not ind Serum Alcohol (0-5) mg/dL Blood Type Antibody Screen 01/04/18 01/04/18 01/04/18 Range/Units 06:33 08:57 18:29 WBC (4.0-11.0) th/mm3 RBC (4.50-5.90) mil/mm3 Hgb (13.0-17.0) gm/dL Hct (39.0-51.0) % MCV (80.0-100.0) fL MCH (27.0-34.0) pg MCHC (32.0-36.0) % RDW (11.6-17.2) % Plt Count (150-450) th/mm3 MPV (7.0-11.0) fL Neut % (Auto) (16.0-70.0) % Lymph % (Auto) (9.0-44.0) % Clark % (Auto) (0.0-8.0) % Eos % (Auto) (0.0-4.0) % Baso % (Auto) (0.0-2.0) % Neut # (Auto) (1.8-7.7) th/mm3 Lymph # (Auto) (1.0-4.8) th/mm3 Clark # (Auto) (0.0-0.9) th/mm3 Eos # (Auto) (0.0-0.4) th/mm3 Baso # (Auto) (0.0-0.2) th/mm3 WBC Differential Differential Comment PT (9.8-11.6) sec INR Ratio APTT (24.3-30.1) sec Sodium 143 (136-145) meq/L Potassium 3.8 D (3.5-5.1) meq/L Chloride 108 H (98-107) meq/L Carbon Dioxide 25.9 (21.0-32.0) meq/L Anion Gap 9 (5-15) meq/L BUN 43 H (7-18) mg/dL Creatinine 2.73 H (0.60-1.30) mg/dL Estimated GFR 24 L (>89) mL/min POC Glucose 69 180 H (68-110) mg/dl Random Glucose 54 L D (74-106) mg/dL Calcium 7.8 L (8.5-10.1) mg/dL Magnesium (1.5-2.5) mg/dL Total Bilirubin 0.2 (0.2-1.0) mg/dL AST 14 L (15-37) U/L ALT 20 (12-78) U/L Alkaline Phosphatase 77 (45-117) U/L Troponin I (0.02-0.05) ng/mL Total Protein 5.8 L D (6.4-8.2) g/dL Albumin 2.6 L (3.4-5.0) g/dL Lipase (73-393) U/L Urine Color (Yellw/Straw) Urine Clarity (Clear) Urine pH (5.0-8.5) Ur Specific [place] (1.002-1.035) Urine Protein (Neg-Trace) mg/dL Urine Glucose (UA) (Negative) mg/dL Urine Ketones (Negative) mg/dL Urine Occult Blood (Negative) Urine Nitrate (Negative) Urine Bilirubin (Negative) Urine Urobilinogen (Less than 2) mg/dL Ur Leukocyte Esterase (Negative) Urine RBC (0-3) /hpf Urine WBC (0-5) /hpf Hyaline Casts (0-3) /lpf Urine Mucus (Occasional) /lpf Micro UA Comment Ur Microscopic Review Urine Culture Comments Serum Alcohol (0-5) mg/dL Blood Type Antibody Screen 01/04/18 Range/Units 20:26 WBC (4.0-11.0) th/mm3 RBC (4.50-5.90) mil/mm3 Hgb (13.0-17.0) gm/dL Hct (39.0-51.0) % MCV (80.0-100.0) fL MCH (27.0-34.0) pg MCHC (32.0-36.0) % RDW (11.6-17.2) % Plt Count (150-450) th/mm3 MPV (7.0-11.0) fL Neut % (Auto) (16.0-70.0) % Lymph % (Auto) (9.0-44.0) % Clark % (Auto) (0.0-8.0) % Eos % (Auto) (0.0-4.0) % Baso % (Auto) (0.0-2.0) % Neut # (Auto) (1.8-7.7) th/mm3 Lymph # (Auto) (1.0-4.8) th/mm3 Clark # (Auto) (0.0-0.9) th/mm3 Eos # (Auto) (0.0-0.4) th/mm3 Baso # (Auto) (0.0-0.2) th/mm3 WBC Differential Differential Comment PT (9.8-11.6) sec INR Ratio APTT (24.3-30.1) sec Sodium (136-145) meq/L Potassium (3.5-5.1) meq/L Chloride (98-107) meq/L Carbon Dioxide (21.0-32.0) meq/L Anion Gap (5-15) meq/L BUN (7-18) mg/dL Creatinine (0.60-1.30) mg/dL Estimated GFR (>89) mL/min POC Glucose 333 H (68-110) mg/dl Random Glucose (74-106) mg/dL Calcium (8.5-10.1) mg/dL Magnesium (1.5-2.5) mg/dL Total Bilirubin (0.2-1.0) mg/dL AST (15-37) U/L ALT (12-78) U/L Alkaline Phosphatase (45-117) U/L Troponin I (0.02-0.05) ng/mL Total Protein (6.4-8.2) g/dL Albumin (3.4-5.0) g/dL Lipase (73-393) U/L Urine Color (Yellw/Straw) Urine Clarity (Clear) Urine pH (5.0-8.5) Ur Specific [place] (1.002-1.035) Urine Protein (Neg-Trace) mg/dL Urine Glucose (UA) (Negative) mg/dL Urine Ketones (Negative) mg/dL Urine Occult Blood (Negative) Urine Nitrate (Negative) Urine Bilirubin (Negative) Urine Urobilinogen (Less than 2) mg/dL Ur Leukocyte Esterase (Negative) Urine RBC (0-3) /hpf Urine WBC (0-5) /hpf Hyaline Casts (0-3) /lpf Urine Mucus (Occasional) /lpf Micro UA Comment Ur Microscopic Review Urine Culture Comments Serum Alcohol (0-5) mg/dL Blood Type Antibody Screen Imaging Data Radiologist's impression: Chest X-Ray 01/03/18 21:58 CONCLUSION: No evidence of acute cardiopulmonary disease. Venous Doppler Study 01/04/18 00:00 CONCLUSION: Acute thrombus in the left basilic vein. Discharge Plan Discharge Disposition Patient Disposition: 30 Still Patient Discharge Condition Condition: Fair Discharge Details Diagnosis: GI (gastrointestinal bleed), COPD (chronic obstructive pulmonary disease) Physicians Team ED Provider: Zackery Miller ED Midlevel Provider: Erin Shaw Primary Care Provider: UNKNOWN, Attending Provider: Char Cortez Other Providers: Pako Mckeon ; Maria,Alexa N Status ED Status: Left Department Discharge Information Discharge Date/Time: 01/04/18 02:27
--- NOTE | 2018-01-03 22:34 | XR ---
EXAM DATE: 01/03/2018 9:58 PM EDT AGE/SEX: 67 years / Male INDICATIONS: Short of breath. CLINICAL DATA: This is the patient's initial encounter. Patient reports that signs and symptoms have been present for 1 day and indicates a pain score of 0/10. MEDICAL/SURGICAL HISTORY: . Chronic obstructive pulmonary disease. Diabetes. Hypertension. Oste oarthritis. None. [place] [facility] [place]. . FINDINGS: A single AP view of the chest demonstrates the lungs to be symmetrically aerated without evidence of mass, infiltrate or effusion. The cardiomediastinal contours are unremarkable. Osseous structures a re intact. CONCLUSION: No evidence of acute cardiopulmonary disease. Electronically signed by: Gm Herrera MD 01/03/2018 10:33 PM EDT
[2018-01-03 22:57] LABS: Activated Partial Thrombo Time 17.8 sec (24.3-30.1); INR 0.9 Ratio; Prothrombin Time 9.4 sec (9.8-11.6)
[2018-01-03 23:05] LABS: Alanine Aminotransferase 24 U/L (12-78); Albumin 2.9 g/dL (3.4-5.0); Alkaline Phosphatase 90 U/L (45-117); Anion Gap 10 meq/L (5-15); Aspartate Aminotransferase 28 U/L (15-37); Blood Urea Nitrogen 50 mg/dL (7-18); Calcium 8.5 mg/dL (8.5-10.1); Carbon Dioxide 25.5 meq/L (21.0-32.0); Chloride 102 meq/L (98-107); Glomerular Filtration Rate 20 mL/min (>89); Glucose,Random 193 mg/dL (74-106); Lipase 267 U/L (73-393); Magnesium 2.3 mg/dL (1.5-2.5); Sodium 137 meq/L (136-145)
[2018-01-03 23:28] LABS: Baso # (Auto) 0.2 th/mm3 (0.0-0.2); Baso % (Auto) 1.1 % (0.0-2.0); Eos # (Auto) 0.2 th/mm3 (0.0-0.4); Eos % (Auto) 1.4 % (0.0-4.0); Hematocrit 26.5 % (39.0-51.0); Hemoglobin 8.7 gm/dL (13.0-17.0); Lymph % (Auto) 14.4 % (9.0-44.0); Mean Corpuscular HGB Conc 32.7 % (32.0-36.0); Mean Corpuscular Volume 88.6 fL (80.0-100.0); Mean Platelet Volume 7.5 fL (7.0-11.0); Mono % (Auto) 7.3 % (0.0-8.0); Neut # (Auto) 10.5 th/mm3 (1.8-7.7); Neut % (Auto) 75.8 % (16.0-70.0); Platelet Count 407 th/mm3 (150-450); Red Blood Count 2.99 mil/mm3 (4.50-5.90); Red Cell Distribution Width 14.9 % (11.6-17.2); White Blood Count 13.8 th/mm3 (4.0-11.0)
[2018-01-03 23:43] LABS: Bilirubin,Urine Negative (Negative); Clarity,Urine Clear (Clear); Color,Urine Straw (Yellw/Straw); Glucose,Urine (UA) 50 mg/dL (Negative); Hyaline Casts,Urine 1 /lpf (0-3); Leukocyte Esterase,Urine Negative (Negative); Mucus,Urine Few /lpf (Occasional); Nitrite,Urine Negative (Negative)
[2018-01-03] MEDS ORDERED: Bisacodyl 10 MG Supp RECTAL PRN (23:57)
--- NOTE | 2018-01-04 01:53 | P.HPIM ---
History of Present Illness Primary Care Physician: UNKNOWN History of Present Illness: This is a 67-year-old male with a PMH of HTN, COPD, Anxiety, Depression and DM who was sent to the ER from SNF for nausea/vomiting and hematemesis. 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 Hemoccult negative. On arrival, BP 147/66, HR 88, O2 sat 95% on RA. Hemoglobin 8.7, previously 9.7 on 01/01/2018. Creatinine 3.08, previously 2.53 on 01/01/2018. Troponin negative. UA negative. CXR with no acute findings. - Diagnosis (1) GI bleed (2) Anemia (3) DM (diabetes mellitus) (4) COPD (chronic obstructive pulmonary disease) Inpatient Certification: I certify that the inpatient services were ordered in accordance with Medicare regulations governing the order. This includes certification that hospital inpatient services are reasonable and necessary and in the case of services not specified as inpatient-only under 42 CFR 419.22(n), that they are appropriately provided as inpatient services in accordance to with the 2-midnight benchmark under 43 CFR 412.3(e) Review of Systems PAST FAMILY HISTORY: Reviewed. No h/o DM or CAD All other systems reviewed negative except as stated in HPI [facility] - History History Provided By: Patient - Medical History Medical History: Medical History (Last Reviewed 12/31/17 @ 07:54 by Alma Menard) COPD (chronic obstructive pulmonary disease) Diabetes HTN (hypertension) Osteoarthritis - Surgical History Surgical History: Surgical History (Last Reviewed 12/28/17 @ 13:07 by Kat Oliver) No pertinent past surgical history (Acute) - Family History Family History: Family History (Last Reviewed 12/31/17 @ 07:55 by Alma Menard) Other No significant family history - Tobacco History Second Hand Smoke Exposure: Yes Tobacco Use In Past 30 Days: Yes Smoking Status: Current every day smoker Tobacco Type: Cigarettes - Alcohol History How Often Do You Have a Drink Containing Alcohol: 2 to 4 times a month - Substance Use History Substance History: No History of Abuse - Immunization History Tetanus Immunization: >5 Years Medications and Allergies Active Medications: Active Medications Al Hydroxide/Mg Hydroxide (Milk Of Magnesia Liq) 30 ml PO Q12H PRN PRN Reason: Mild Constipation Bisacodyl (Dulcolax Supp) 10 mg RECTAL DAILY PRN PRN Reason: SEVERE CONSITIPATION Sodium Chloride (Ns Inj) 1,000 mls @ 100 mls/hr IV.CONT .Q10H RE Lactulose (Lactulose Liq) 30 ml PO DAILY PRN PRN Reason: SEVERE CONSITIPATION Ondansetron HCl (Zofran Inj) 4 mg IV.PUSH Q6H PRN PRN Reason: NAUSEA OR VOMITING Pantoprazole Sodium (Protonix Inj) 40 mg IV.PUSH Q12H RE Senna/Docusate Sodium (Beulah-Colace) 1 tab PO BID RE Sennosides (Senokot) 17.2 mg PO Q12H PRN PRN Reason: Moderate Constipation Sodium Chloride (Ns Flush) 2 ml IV.FLUSH PRN PRN PRN Reason: FLUSH AFTER USING IV ACCESS Allergies Allergy/AdvReac Type Severity Reaction Status Date / Time No Known Allergies Allergy Unknown Abdominal Uncoded 12/27/17 21:20 Pain Home Medications Medication Instructions Recorded Confirmed Type fluoxetine [Prozac] 40 mg PO DAILY 12/27/17 01/04/18 History hydralazine 0.25 mg/kg PO TID 01/04/18 01/04/18 History Exam Vital signs: Vital Signs 01/03/18 21:36 01/03/18 21:40 01/03/18 22:29 Pulse Rate 88 88 88 Respiratory Rate 18 18 18 Blood Pressure 147/66 H 147/66 H Pulse Oximetry 95 95 01/03/18 22:36 Pulse Rate 80 Respiratory Rate 18 Blood Pressure 147/66 H Pulse Oximetry 97 Intake & Output 01/03/18 01/03/18 01/04/18 06:59 18:59 06:59 Intake Total 1000 / 1000 Balance 1000 / 1000 Weight 79.832 kg Intake: IV 1000 / 1000 NS Inj 1,000 ML @ Wide Open IV. 1000 / 1000 SIG BOLUS ONE Rx#:[id number] Narrative: PE: GENERAL: Middle-aged white male in no acute distress. SKIN: Focused skin assessment warm and dry. HEENT: PERRLA, EOMI. No scleral icterus or conjunctival pallor. No lid lag or facial droop. CARDIOVASCULAR: Regular rate and rhythm. No obvious murmurs to auscultation. No chest tenderness to palpation. RESPIRATORY: No obvious rhonchi or wheezing. Clear to auscultation. Breath sounds equal bilaterally. GASTROINTESTINAL: Abdomen soft, non-tender, nondistended. BS normal. MUSCULOSKELETAL: Extremities without clubbing, cyanosis, or edema. No obvious deformities. NEUROLOGICAL: Awake, alert and oriented x4. No focal neurologic deficits. Moving both upper and lower extremities spontaneously. PSYCHIATRIC: Appropriate mood and affect. Insight and judgment normal. Results - Labs CBC & Chem 7: 01/03/18 23:20 01/03/18 22:04 Labs: Short CBC 01/03/18 Range/Units 23:20 WBC 13.8 H (4.0-11.0) th/mm3 Hgb 8.7 L (13.0-17.0) gm/dL Hct 26.5 L (39.0-51.0) % Plt Count 407 (150-450) th/mm3 BMP 01/03/18 22:04 Sodium 137 Potassium 5.0 Chloride 102 Carbon Dioxide 25.5 BUN 50 H Creatinine 3.08 H Calcium 8.5 Cardiac Enzymes 01/03/18 Range/Units 22:04 Troponin I Less than 0.02 L (0.02-0.05) ng/mL Liver Function 01/03/18 Range/Units 22:04 Total Bilirubin 0.3 (0.2-1.0) mg/dL AST 28 (15-37) U/L ALT 24 (12-78) U/L Alkaline Phosphatase 90 (45-117) U/L Albumin 2.9 L (3.4-5.0) g/dL Urine 01/03/18 Range/Units 23:20 Urine Color Straw (Yellw/Straw) Urine Clarity Clear (Clear) Urine pH 7.0 (5.0-8.5) Ur Specific [place] 1.010 (1.002-1.035) Urine Protein 100 H (Neg-Trace) mg/dL Urine Glucose (UA) 50 (Negative) mg/dL - Imaging Impressions Chest X-Ray 01/03/18 21:58 CONCLUSION: No evidence of acute cardiopulmonary disease. Caprini VTE Risk Assessment Caprini VTE Risk Assessment: No/Low Risk (score <= 1) VTE Pharmacological Exception Reason: Active bleeding Caprini Risk Assessment Model: Point Value = 1 Point Value = 2 Point Value = 3 Point Value = 5 Age 41-60 Minor surgery BMI > 25 kg/m2 Swollen legs Varicose veins or History of unexplained or recurrent spontaneous Oral contraceptives or hormone replacement Sepsis (< 1 month) Serious lung disease, including pneumonia (< 1 month) Abnormal pulmonary function Acute myocardial infarction Congestive heart failure (< 1 month) History of inflammatory bowel disease Medical patient at bed rest Age 61-74 Arthroscopic surgery Major open surgery (> 45 min) Laparoscopic surgery (> 45 min) Malignancy Confined to bed (> 72 hours) Immobilizing plaster cast Central venous access Age >= 75 History of VTE Family history of VTE Factor V Leiden Prothrombin [id number] Lupus anticoagulant Anticardiolipin antibodies Elevated serum homocysteine Heparin-induced thrombocytopenia Other congenital or acquired thrombophilia Stroke (< 1 month) Elective arthroplasty Hip, pelvis, or leg fracture Acute spinal cord injury (< 1 month) Prophylaxis Regimen: Total Risk Factor Score Risk Level Prophylaxis Regimen 0-1 Low Early ambulation 2 Moderate Order ONE of the following: *Sequential Compression Device (SCD) *Heparin 5000 units SQ BID 3-4 Higher Order ONE of the following medications: *Heparin 5000 units SQ TID *Enoxaparin/Lovenox 40 mg SQ daily (WT < 150 kg, CrCl > 30 mL/min) *Enoxaparin/Lovenox 30 mg SQ daily (WT < 150 kg, CrCl > 10-29 mL/min) *Enoxaparin/Lovenox 30 mg SQ BID (WT < 150 kg, CrCl > 30 mL/min) AND/OR *Sequential Compression Device (SCD) 5 or more Highest Order ONE of the following medications: *Heparin 5000 units SQ TID (Preferred with Epidurals) *Enoxaparin/Lovenox 40 mg SQ daily (WT < 150 kg, CrCl > 30 mL/min) *Enoxaparin/Lovenox 30 mg SQ daily (WT < 150 kg, CrCl > 10-29 mL/min) *Enoxaparin/Lovenox 30 mg SQ BID (WT < 150 kg, CrCl > 30 mL/min) AND *Sequential Compression Device (SCD) Assessment and Plan - Assessment (1) GI bleed Code(s): K92.2 - Gastrointestinal hemorrhage, unspecified Status: Acute (2) Anemia Code(s): D64.9 - Anemia, unspecified Status: Acute (3) DM (diabetes mellitus) Code(s): E11.9 - Type 2 diabetes mellitus without complications Status: Acute (4) COPD (chronic obstructive pulmonary disease) Code(s): J44.9 - Chronic obstructive pulmonary disease, unspecified Status: Acute - Plan A/P: 1. GI Bleed: +hematemesis, on ASA for recent CVA, Hemoccult negative, will consult GI for further eval/intervention, Protonix IV. 2. Anemia: Hgb 8.7, previously 9.7 on 01/01/18, Type & Screen, repeat labs in am, transfuse as needed. 3. COPD: Chronic Respiratory Failure, occasional wheezing, DuoNeb prn, resume home medications. 4. DM: Sliding scale w/ Accu-Cheks 5. DVT Prophylaxis: Pharmacologic contraindication due to active bleeding 6. Social work for d/c planning as needed 7. Case discussed w/ ER physician at length, labs/records/imaging reviewed by me.
[2018-01-04] MEDS: Sod Chloride 0.9% Inj 1,000 ML IV.CONT SCH ×3 (02:07→20:41)
[2018-01-04 07:57] LABS: Baso # (Auto) 0.1 th/mm3 (0.0-0.2); Baso % (Auto) 0.5 % (0.0-2.0); Eos # (Auto) 0.2 th/mm3 (0.0-0.4); Hematocrit 25.1 % (39.0-51.0); Hemoglobin 8.4 gm/dL (13.0-17.0); Lymph # (Auto) 1.5 th/mm3 (1.0-4.8); Lymph % (Auto) 9.6 % (9.0-44.0); Mean Corpuscular HGB Conc 33.5 % (32.0-36.0); Mean Corpuscular Hemoglobin 29.5 pg (27.0-34.0); Mean Corpuscular Volume 88.1 fL (80.0-100.0); Mean Platelet Volume 7.9 fL (7.0-11.0); Mono # (Auto) 1.1 th/mm3 (0.0-0.9); Mono % (Auto) 6.6 % (0.0-8.0); Neut # (Auto) 13.2 th/mm3 (1.8-7.7); Neut % (Auto) 82.3 % (16.0-70.0); Platelet Count 436 th/mm3 (150-450); Red Blood Count 2.85 mil/mm3 (4.50-5.90); Red Cell Distribution Width 14.7 % (11.6-17.2)
[2018-01-04] MEDS: Senna/Docusate Sodium 8.6/50 MG Tablet PO SCH ×2 (08:03→20:39)
[2018-01-04 08:49] LABS: Alanine Aminotransferase 20 U/L (12-78); Albumin 2.6 g/dL (3.4-5.0); Alkaline Phosphatase 77 U/L (45-117); Anion Gap 9 meq/L (5-15); Aspartate Aminotransferase 14 U/L (15-37); Blood Urea Nitrogen 43 mg/dL (7-18); Calcium 7.8 mg/dL (8.5-10.1); Carbon Dioxide 25.9 meq/L (21.0-32.0); Chloride 108 meq/L (98-107); Glomerular Filtration Rate 24 mL/min (>89); Glucose,Random 54 mg/dL (74-106); Potassium 3.8 meq/L (3.5-5.1); Sodium 143 meq/L (136-145); Total Protein 5.8 g/dL (6.4-8.2)
[2018-01-04] MEDS: Pantoprazole Inj 40 MG Vial IV.PUSH SCH ×2 (09:00→20:40)
--- NOTE | 2018-01-04 09:08 | P.PN ---
Subjective Interval history: Follow-up for hematemesis, COPD exacerbation. Patient reports no further episodes of nausea/vomiting/hematemesis overnight. He denies any abdominal pain. He has not had a bowel movement since his arrival. Denies any fever/ chills, lightheadedness, dizziness, chest pain. He reports some mild wheezing and shortness of breath which he believes is at his baseline. He does not wear oxygen at home. He states he only uses a rescue inhaler for his COPD. On exam his left arm is noted to be much larger and more edematous than the right arm, however the patient denies any pain. He states his arm has been swollen since he fractured his hand after a fall. Patient reports he has been compliant with his aspirin this week, was never on any anticoagulation previously. He denies taking any additional NSAIDs to me, although later told GI team he was taking motrin a few weeks ago for toothache. He denies any other medical complaints at this time. Physical Exam Vital signs: Vital Signs 01/03/18 21:36 01/03/18 21:40 01/03/18 22:29 Temperature Pulse Rate 88 88 88 Respiratory Rate 18 18 18 Blood Pressure 147/66 H 147/66 H Pulse Oximetry 95 95 01/03/18 22:36 01/04/18 00:00 01/04/18 04:00 Temperature 98.1 F 98.0 F Pulse Rate 80 92 H 93 H Respiratory Rate 18 19 19 Blood Pressure 147/66 H 164/75 H 172/75 H Pulse Oximetry 97 95 93 L 01/04/18 08:00 Temperature 98.0 F Pulse Rate 89 Respiratory Rate 15 Blood Pressure 173/78 H Pulse Oximetry 93 L Intake & Output 01/03/18 01/04/18 01/04/18 18:59 06:59 18:59 Intake Total 1600 / 1600 Output Total 1600 / 1600 Balance 0 / 0 Weight 79.83 kg Intake: IV 1000 / 1000 NS Inj 1,000 ML @ Wide Open IV. 1000 / 1000 SIG BOLUS ONE Rx#:[id number] Other 600 / 600 Output: Urine 1600 / 1600 Other: Other Intake Source Saline Solution Date of Last Bowel Movement 01/03/18 Weight On Admission 79.832 kg Narrative: GENERAL: Well-nourished, well-developed male patient in [facility]. SKIN: Warm and dry. No rash. HEENT: Normocephalic. Atraumatic. Pupils equal and round. Mucous membranes pink and moist. CARDIOVASCULAR: Regular rate and rhythm. No murmur appreciated. RESPIRATORY: No accessory muscle use. Clear to auscultation. Breath sounds equal bilaterally. GASTROINTESTINAL: Abdomen soft, non-tender, nondistended. Normoactive bowel sounds x4. MUSCULOSKELETAL: No obvious deformities. Left hand/forearm in short arm splint. LUE diffusely edematous and much larger when compared to RUE. NEUROLOGICAL: Awake and alert. No obvious cranial nerve deficits. Motor grossly within normal limits. Moving all extremities spontaneously with slight RUE weakness. Normal speech. PSYCHIATRIC: Appropriate mood and affect; insight and judgment normal. - Urinary Catheter Management Indwelling Urethral Catheter Cath placed during this visit: yes Reason for continuing: Acute urinary retention Insertion date: 01/01/18 Results - Labs CBC & Chem 7: 01/04/18 06:33 01/04/18 06:33 Laboratory Results - last 24 hr 01/03/18 01/03/18 01/03/18 22:04 22:04 22:04 WBC RBC Hgb Hct MCV MCH MCHC RDW Plt Count MPV Neut % (Auto) Lymph % (Auto) [place] % (Auto) Eos % (Auto) Baso % (Auto) Neut # (Auto) Lymph # (Auto) [place] # (Auto) Eos # (Auto) Baso # (Auto) WBC Differential Differential Comment PT 9.4 L INR 0.9 APTT 17.8 L Sodium 137 Potassium 5.0 Chloride 102 Carbon Dioxide 25.5 Anion Gap 10 BUN 50 H Creatinine 3.08 H Estimated GFR 20 L POC Glucose Random Glucose 193 H Calcium 8.5 Magnesium 2.3 Total Bilirubin 0.3 AST 28 ALT 24 Alkaline Phosphatase 90 Troponin I Less than 0.02 L Total Protein 7.0 D Albumin 2.9 L Lipase 267 Urine Color Urine Clarity Urine pH Ur Specific [place] Urine Protein Urine Glucose (UA) Urine Ketones Urine Occult Blood Urine Nitrate Urine Bilirubin Urine Urobilinogen Ur Leukocyte Esterase Urine RBC Urine WBC Hyaline Casts Urine Mucus Micro UA Comment Ur Microscopic Review Urine Culture Comments Serum Alcohol Less than 3 Blood Type A Positive Antibody Screen Negative 01/03/18 01/03/18 01/04/18 23:20 23:20 06:33 WBC 13.8 H 16.0 H RBC 2.99 L 2.85 L Hgb 8.7 L 8.4 L Hct 26.5 L 25.1 L MCV 88.6 88.1 MCH 29.0 29.5 MCHC 32.7 33.5 RDW 14.9 14.7 Plt Count 407 436 MPV 7.5 7.9 Neut % (Auto) 75.8 H 82.3 H Lymph % (Auto) 14.4 9.6 [place] % (Auto) 7.3 6.6 Eos % (Auto) 1.4 1.0 Baso % (Auto) 1.1 0.5 Neut # (Auto) 10.5 H 13.2 H Lymph # (Auto) 2.0 1.5 [place] # (Auto) 1.0 H 1.1 H Eos # (Auto) 0.2 0.2 Baso # (Auto) 0.2 0.1 WBC Differential . . Differential Comment Auto diff final Auto diff final PT INR APTT Sodium Potassium Chloride Carbon Dioxide Anion Gap BUN Creatinine Estimated GFR POC Glucose Random Glucose Calcium Magnesium Total Bilirubin AST ALT Alkaline Phosphatase Troponin I Total Protein Albumin Lipase Urine Color Straw Urine Clarity Clear Urine pH 7.0 Ur Specific [place] 1.010 Urine Protein 100 H Urine Glucose (UA) 50 Urine Ketones Negative Urine Occult Blood Negative Urine Nitrate Negative Urine Bilirubin Negative Urine Urobilinogen Less than 2 Ur Leukocyte Esterase Negative Urine RBC Less than 1 Urine WBC 1 Hyaline Casts 1 Urine Mucus Few H Micro UA Comment Cath-culture not ind Ur Microscopic Review Not Reportable Urine Culture Comments Cath-cult not ind Serum Alcohol Blood Type Antibody Screen 01/04/18 01/04/18 06:33 08:57 WBC RBC Hgb Hct MCV MCH MCHC RDW Plt Count MPV Neut % (Auto) Lymph % (Auto) [place] % (Auto) Eos % (Auto) Baso % (Auto) Neut # (Auto) Lymph # (Auto) [place] # (Auto) Eos # (Auto) Baso # (Auto) WBC Differential Differential Comment PT INR APTT Sodium 143 Potassium 3.8 D Chloride 108 H Carbon Dioxide 25.9 Anion Gap 9 BUN 43 H Creatinine 2.73 H Estimated GFR 24 L POC Glucose 69 Random Glucose 54 L D Calcium 7.8 L Magnesium Total Bilirubin 0.2 AST 14 L ALT 20 Alkaline Phosphatase 77 Troponin I Total Protein 5.8 L D Albumin 2.6 L Lipase Urine Color Urine Clarity Urine pH Ur Specific [place] Urine Protein Urine Glucose (UA) Urine Ketones Urine Occult Blood Urine Nitrate Urine Bilirubin Urine Urobilinogen Ur Leukocyte Esterase Urine RBC Urine WBC Hyaline Casts Urine Mucus Micro UA Comment Ur Microscopic Review Urine Culture Comments Serum Alcohol Blood Type Antibody Screen - Imaging Impressions Chest X-Ray 01/03/18 21:58 CONCLUSION: No evidence of acute cardiopulmonary disease. Assessment and Plan - Assessment (1) GI bleed Code(s): K92.2 - Gastrointestinal hemorrhage, unspecified Status: Acute (2) Anemia Code(s): D64.9 - Anemia, unspecified Status: Acute (3) DM (diabetes mellitus) Code(s): E11.9 - Type 2 diabetes mellitus without complications Status: Acute (4) COPD (chronic obstructive pulmonary disease) Code(s): J44.9 - Chronic obstructive pulmonary disease, unspecified Status: Acute - Plan 67-year-old male patient who has a past medical history significant for hypertension, COPD, anxiety, depression, diabetes type 2, and recently diagnosed right pontine CVA on aspirin 325mg x1 week, presents from [facility] with complaints of nausea with hematemesis x2. Patient denies any blood noted in stool and upon arrival to ED, Hemoccult tested negative. GI Bleed/Hematemesis: recently started on aspirin for CVA. Hemoccult negative. -Continue IV protonix 40mg bid -NPO -Avoid ASA/NSAIDs for now -Consult GI, plan for EGD tomorrow Subacute CVA: right pontine CVA diagnosed 1 week ago, has been on full strength aspirin -aspirin on hold for GI bleed as above -Consult PT/OT Acute DVT: patient with +edema of LUE. -LUE Doppler U/S shows acute thrombus in left basilic vein -Complicated patient for anticoagulation, recent stroke, now with GI bleed and anemia, will consult Hematology for further assistance Acute COPD Exacerbation: patient with wheezing on exam -Continue duonebs q6h and q2h prn -Start on Symbicort bid Diabetes Mellitus: chronic -monitor Accu-Cheks and cover with SSI Anxiety/Depression: chronic -continue patient's fluoxetine DVT Prophylaxis: teds/SCDs; holding chemical prophylaxis with GI bleed
--- NOTE | 2018-01-04 09:13 | P.CONGI ---
History of Present Illness Consult date: 01/04/18 Consult reason: GI bleed, hematemesis Chief complaint: GI BLEED, COPD EXACERBATION History of Present Illness: Mr. Yang is a 67-year-old male patient who has a past medical history significant for hypertension, COPD, anxiety, depression, diabetes type 2, and right pontine CVA. Patient was diagnosed with CVA 1 week ago after a syncopal episode via CT scan. Patient has been residing in a detention facility and has been receiving aspirin 325 mg p.o. daily. Patient presented to the emergency room this a.m. with complaints of nausea with emesis x2 with blood noted bright red per patient. Patient denies any blood noted in stool and upon arrival to ED Hemoccult tested negative. Patient denies heartburn or any difficulty swallowing or pain with swallowing. Patient does endorse that a few weeks ago he was regularly taking Motrin 600 mg every 3-4 hours for a toothache that he was experiencing. Patient states family history of gastric ulcers-his father. Patient denies ever having had an upper endoscopy done or a colonoscopy. Again patient denies any noted blood in stool and states that his bowel movements are normally soft and brown once a day without any reports of diarrhea or constipation. Patient states he smokes half a pack of cigarettes a day and 1 day out of the week he drinks a total of 6 beers. 01/04/2018 WBC 16.0 hemoglobin 8.4 hematocrit 25.1 platelet count 436 INR 0.9 BUN 43 creatinine 2.73 with a GFR of 24 total bilirubin 0.2 AST 14 ALT 20 with a alk phos of 77. I discussed the importance of the avoidance of nonsteroidal anti-inflammatory medications with patient and the possibility of having an upper endoscopy procedure. Patient verbalized understanding and agreement <Brigida Lopes - Last Filed: 01/04/18 09:31> Review of Systems All other systems reviewed negative except as stated in HPI <Brigida Lopes - Last Filed: 01/04/18 09:31> PMFSH - History History Provided By: Patient - Medical History Medical History: Medical History (Last Reviewed 12/31/17 @ 07:54 by Alma Menard) COPD (chronic obstructive pulmonary disease) Diabetes HTN (hypertension) Osteoarthritis - Surgical History Surgical History: Surgical History (Last Reviewed 12/28/17 @ 13:07 by Kat Oliver) No pertinent past surgical history (Acute) - Family History Family History: Family History (Last Reviewed 12/31/17 @ 07:55 by Alma Menard) Other No significant family history - Tobacco History Second Hand Smoke Exposure: No Tobacco Use In Past 30 Days: Yes Smoking Status: Never smoker Tobacco Type: Cigarettes - Alcohol History How Often Do You Have a Drink Containing Alcohol: Never - Substance Use History Substance History: No History of Abuse - Travel History Recent Travel in the [place] Within the Last 8 Weeks: No Recent Travel Out of the Country Within the Last 8 Weeks: No - Immunization History Tetanus Immunization: >5 Years <Brigida Lopes - Last Filed: 01/04/18 09:31> - Medical History Medical History: Medical History (Last Reviewed 12/31/17 @ 07:54 by Alma Menard) COPD (chronic obstructive pulmonary disease) Diabetes HTN (hypertension) Osteoarthritis - Surgical History Surgical History: Surgical History (Last Reviewed 12/28/17 @ 13:07 by Kat Oliver) No pertinent past surgical history (Acute) - Family History Family History: Family History (Last Reviewed 12/31/17 @ 07:55 by Alma Menard) Other No significant family history <Pako Mckeon - Last Filed: 01/04/18 11:39> Medications and Allergies Active Medications: Active Medications Al Hydroxide/Mg Hydroxide (Milk Of Magnesia Liq) 30 ml PO Q12H PRN PRN Reason: Mild Constipation Bisacodyl (Dulcolax Supp) 10 mg RECTAL DAILY PRN PRN Reason: SEVERE CONSITIPATION Sodium Chloride (Ns Inj) 1,000 mls @ 100 mls/hr IV.CONT .Q10H [facility] Last Admin: 01/04/18 02:07 Dose: 100 mls/hr Lactulose (Lactulose Liq) 30 ml PO DAILY PRN PRN Reason: SEVERE CONSITIPATION Ondansetron HCl (Zofran Inj) 4 mg IV.PUSH Q6H PRN PRN Reason: NAUSEA OR VOMITING Pantoprazole Sodium (Protonix Inj) 40 mg IV.PUSH Q12H RE Senna/Docusate Sodium (Beulah-Colace) 1 tab PO BID [facility] Last Admin: 01/04/18 08:03 Dose: Not Given Sennosides (Senokot) 17.2 mg PO Q12H PRN PRN Reason: Moderate Constipation Sodium Chloride (Ns Flush) 2 ml IV.FLUSH PRN PRN PRN Reason: FLUSH AFTER USING IV ACCESS <Brigida Lopes - Last Filed: 01/04/18 09:31> Active Medications: Active Medications Al Hydroxide/Mg Hydroxide (Milk Of Magnesia Liq) 30 ml PO Q12H PRN PRN Reason: Mild Constipation Bisacodyl (Dulcolax Supp) 10 mg RECTAL DAILY PRN PRN Reason: SEVERE CONSITIPATION Sodium Chloride (Ns Inj) 1,000 mls @ 100 mls/hr IV.CONT .Q10H [facility] Last Admin: 01/04/18 10:09 Dose: 100 mls/hr Lactulose (Lactulose Liq) 30 ml PO DAILY PRN PRN Reason: SEVERE CONSITIPATION Ondansetron HCl (Zofran Inj) 4 mg IV.PUSH Q6H PRN PRN Reason: NAUSEA OR VOMITING Last Admin: 01/04/18 10:09 Dose: 4 mg Pantoprazole Sodium (Protonix Inj) 40 mg IV.PUSH Q12H [facility] Last Admin: 01/04/18 09:00 Dose: 40 mg Senna/Docusate Sodium (Beulah-Colace) 1 tab PO BID [facility] Last Admin: 01/04/18 08:03 Dose: Not Given Sennosides (Senokot) 17.2 mg PO Q12H PRN PRN Reason: Moderate Constipation Sodium Chloride (Ns Flush) 2 ml IV.FLUSH PRN PRN PRN Reason: FLUSH AFTER USING IV ACCESS <Pako Mckeon - Last Filed: 01/04/18 11:39> Allergies Allergy/AdvReac Type Severity Reaction Status Date / Time No Known Allergies Allergy Unknown Abdominal Uncoded 12/27/17 21:20 Pain Home Medications Medication Instructions Recorded Confirmed Type fluoxetine [Prozac] 40 mg PO DAILY 12/27/17 01/04/18 History hydralazine 0.25 mg/kg PO TID 01/04/18 01/04/18 History Exam Vital signs: Vital Signs 01/03/18 21:36 01/03/18 21:40 01/03/18 22:29 Temperature Pulse Rate 88 88 88 Respiratory Rate 18 18 18 Blood Pressure 147/66 H 147/66 H Pulse Oximetry 95 95 01/03/18 22:36 01/04/18 00:00 01/04/18 04:00 Temperature 98.1 F 98.0 F Pulse Rate 80 92 H 93 H Respiratory Rate 18 19 19 Blood Pressure 147/66 H 164/75 H 172/75 H Pulse Oximetry 97 95 93 L 01/04/18 08:00 Temperature 98.0 F Pulse Rate 89 Respiratory Rate 15 Blood Pressure 173/78 H Pulse Oximetry 93 L Intake & Output 01/03/18 01/04/18 01/04/18 18:59 06:59 18:59 Intake Total 1600 / 1600 Output Total 1600 / 1600 Balance 0 / 0 Weight 79.83 kg Intake: IV 1000 / 1000 NS Inj 1,000 ML @ Wide Open IV. 1000 / 1000 SIG BOLUS ONE Rx#:[id number] Other 600 / 600 Output: Urine 1600 / 1600 Other: Other Intake Source Saline Solution Date of Last Bowel Movement 01/03/18 Weight On Admission 79.832 kg - Constitutional no acute distress - Routine HEENT Exam Head: Present: normocephalic Eye: Absent: conjunctival icterus - Routine Neck Exam Present: supple, full ROM - Routine Respiratory Exam Present: CTA bilaterally. Absent: accessory muscle use - Routine Cardiovascular Exam Present: RRR, murmur - Routine Abdominal Exam Present: soft, normoactive bowel sounds. Absent: tenderness, distended, guarding, firm - Routine Extremities Exam Present: pulses intact. Absent: cyanosis, edema - Routine Skin Exam Present: dry, warm - Routine Neurological Exam Present: alert, oriented X3 <Lopes,Brigida - Last Filed: 01/04/18 09:31> Vital signs: Vital Signs 01/03/18 21:36 01/03/18 21:40 01/03/18 22:29 Temperature Pulse Rate 88 88 88 Respiratory Rate 18 18 18 Blood Pressure 147/66 H 147/66 H Pulse Oximetry 95 95 01/03/18 22:36 01/04/18 00:00 01/04/18 04:00 Temperature 98.1 F 98.0 F Pulse Rate 80 92 H 93 H Respiratory Rate 18 19 19 Blood Pressure 147/66 H 164/75 H 172/75 H Pulse Oximetry 97 95 93 L 01/04/18 08:00 Temperature 98.0 F Pulse Rate 89 Respiratory Rate 15 Blood Pressure 173/78 H Pulse Oximetry 93 L Intake & Output 01/03/18 01/04/18 01/04/18 18:59 06:59 18:59 Intake Total 1600 / 1600 1000 / 1000 Output Total 1600 / 1600 Balance 0 / 0 1000 / 1000 Weight 79.83 kg Intake: IV 1000 / 1000 1000 / 1000 NS Inj 1,000 ML @ 100 mls/hr IV 1000 / 1000 .CONT .Q10H RE Rx#:[id number] NS Inj 1,000 ML @ Wide Open IV. 1000 / 1000 SIG BOLUS ONE Rx#:[id number] Other 600 / 600 Output: Urine 1600 / 1600 Other: Other Intake Source Saline Solution Date of Last Bowel Movement 01/03/18 01/03/18 Weight On Admission 79.832 kg <Pako Mckeon - Last Filed: 01/04/18 11:39> Results - Labs CBC & Chem 7: 01/04/18 06:33 01/04/18 06:33 Labs: Laboratory Results - last 24 hr 01/03/18 01/03/18 01/03/18 22:04 22:04 22:04 WBC RBC Hgb Hct MCV MCH MCHC RDW Plt Count MPV Neut % (Auto) Lymph % (Auto) [place] % (Auto) Eos % (Auto) Baso % (Auto) Neut # (Auto) Lymph # (Auto) [place] # (Auto) Eos # (Auto) Baso # (Auto) WBC Differential Differential Comment PT 9.4 L INR 0.9 APTT 17.8 L Sodium 137 Potassium 5.0 Chloride 102 Carbon Dioxide 25.5 Anion Gap 10 BUN 50 H Creatinine 3.08 H Estimated GFR 20 L Random Glucose 193 H Calcium 8.5 Magnesium 2.3 Total Bilirubin 0.3 AST 28 ALT 24 Alkaline Phosphatase 90 Troponin I Less than 0.02 L Total Protein 7.0 D Albumin 2.9 L Lipase 267 Urine Color Urine Clarity Urine pH Ur Specific [place] Urine Protein Urine Glucose (UA) Urine Ketones Urine Occult Blood Urine Nitrate Urine Bilirubin Urine Urobilinogen Ur Leukocyte Esterase Urine RBC Urine WBC Hyaline Casts Urine Mucus Micro UA Comment Ur Microscopic Review Urine Culture Comments Serum Alcohol Less than 3 Blood Type A Positive Antibody Screen Negative 01/03/18 01/03/18 01/04/18 23:20 23:20 06:33 WBC 13.8 H 16.0 H RBC 2.99 L 2.85 L Hgb 8.7 L 8.4 L Hct 26.5 L 25.1 L MCV 88.6 88.1 MCH 29.0 29.5 MCHC 32.7 33.5 RDW 14.9 14.7 Plt Count 407 436 MPV 7.5 7.9 Neut % (Auto) 75.8 H 82.3 H Lymph % (Auto) 14.4 9.6 [place] % (Auto) 7.3 6.6 Eos % (Auto) 1.4 1.0 Baso % (Auto) 1.1 0.5 Neut # (Auto) 10.5 H 13.2 H Lymph # (Auto) 2.0 1.5 [place] # (Auto) 1.0 H 1.1 H Eos # (Auto) 0.2 0.2 Baso # (Auto) 0.2 0.1 WBC Differential . . Differential Comment Auto diff final Auto diff final PT INR APTT Sodium Potassium Chloride Carbon Dioxide Anion Gap BUN Creatinine Estimated GFR Random Glucose Calcium Magnesium Total Bilirubin AST ALT Alkaline Phosphatase Troponin I Total Protein Albumin Lipase Urine Color Straw Urine Clarity Clear Urine pH 7.0 Ur Specific [place] 1.010 Urine Protein 100 H Urine Glucose (UA) 50 Urine Ketones Negative Urine Occult Blood Negative Urine Nitrate Negative Urine Bilirubin Negative Urine Urobilinogen Less than 2 Ur Leukocyte Esterase Negative Urine RBC Less than 1 Urine WBC 1 Hyaline Casts 1 Urine Mucus Few H Micro UA Comment Cath-culture not ind Ur Microscopic Review Not Reportable Urine Culture Comments Cath-cult not ind Serum Alcohol Blood Type Antibody Screen 01/04/18 06:33 WBC RBC Hgb Hct MCV MCH MCHC RDW Plt Count MPV Neut % (Auto) Lymph % (Auto) [place] % (Auto) Eos % (Auto) Baso % (Auto) Neut # (Auto) Lymph # (Auto) [place] # (Auto) Eos # (Auto) Baso # (Auto) WBC Differential Differential Comment PT INR APTT Sodium 143 Potassium 3.8 D Chloride 108 H Carbon Dioxide 25.9 Anion Gap 9 BUN 43 H Creatinine 2.73 H Estimated GFR 24 L Random Glucose 54 L D Calcium 7.8 L Magnesium Total Bilirubin 0.2 AST 14 L ALT 20 Alkaline Phosphatase 77 Troponin I Total Protein 5.8 L D Albumin 2.6 L Lipase Urine Color Urine Clarity Urine pH Ur Specific [place] Urine Protein Urine Glucose (UA) Urine Ketones Urine Occult Blood Urine Nitrate Urine Bilirubin Urine Urobilinogen Ur Leukocyte Esterase Urine RBC Urine WBC Hyaline Casts Urine Mucus Micro UA Comment Ur Microscopic Review Urine Culture Comments Serum Alcohol Blood Type Antibody Screen - Imaging Impressions Chest X-Ray 01/03/18 21:58 CONCLUSION: No evidence of acute cardiopulmonary disease. <Brigida Lopes - Last Filed: 01/04/18 09:31> - Labs CBC & Chem 7: 01/04/18 06:33 01/04/18 06:33 Labs: Laboratory Results - last 24 hr 01/03/18 01/03/18 01/03/18 22:04 22:04 22:04 WBC RBC Hgb Hct MCV MCH MCHC RDW Plt Count MPV Neut % (Auto) Lymph % (Auto) [place] % (Auto) Eos % (Auto) Baso % (Auto) Neut # (Auto) Lymph # (Auto) [place] # (Auto) Eos # (Auto) Baso # (Auto) WBC Differential Differential Comment PT 9.4 L INR 0.9 APTT 17.8 L Sodium 137 Potassium 5.0 Chloride 102 Carbon Dioxide 25.5 Anion Gap 10 BUN 50 H Creatinine 3.08 H Estimated GFR 20 L POC Glucose Random Glucose 193 H Calcium 8.5 Magnesium 2.3 Total Bilirubin 0.3 AST 28 ALT 24 Alkaline Phosphatase 90 Troponin I Less than 0.02 L Total Protein 7.0 D Albumin 2.9 L Lipase 267 Urine Color Urine Clarity Urine pH Ur Specific [place] Urine Protein Urine Glucose (UA) Urine Ketones Urine Occult Blood Urine Nitrate Urine Bilirubin Urine Urobilinogen Ur Leukocyte Esterase Urine RBC Urine WBC Hyaline Casts Urine Mucus Micro UA Comment Ur Microscopic Review Urine Culture Comments Serum Alcohol Less than 3 Blood Type A Positive Antibody Screen Negative 01/03/18 01/03/18 01/04/18 23:20 23:20 06:33 WBC 13.8 H 16.0 H RBC 2.99 L 2.85 L Hgb 8.7 L 8.4 L Hct 26.5 L 25.1 L MCV 88.6 88.1 MCH 29.0 29.5 MCHC 32.7 33.5 RDW 14.9 14.7 Plt Count 407 436 MPV 7.5 7.9 Neut % (Auto) 75.8 H 82.3 H Lymph % (Auto) 14.4 9.6 [place] % (Auto) 7.3 6.6 Eos % (Auto) 1.4 1.0 Baso % (Auto) 1.1 0.5 Neut # (Auto) 10.5 H 13.2 H Lymph # (Auto) 2.0 1.5 [place] # (Auto) 1.0 H 1.1 H Eos # (Auto) 0.2 0.2 Baso # (Auto) 0.2 0.1 WBC Differential . . Differential Comment Auto diff final Auto diff final PT INR APTT Sodium Potassium Chloride Carbon Dioxide Anion Gap BUN Creatinine Estimated GFR POC Glucose Random Glucose Calcium Magnesium Total Bilirubin AST ALT Alkaline Phosphatase Troponin I Total Protein Albumin Lipase Urine Color Straw Urine Clarity Clear Urine pH 7.0 Ur Specific [place] 1.010 Urine Protein 100 H Urine Glucose (UA) 50 Urine Ketones Negative Urine Occult Blood Negative Urine Nitrate Negative Urine Bilirubin Negative Urine Urobilinogen Less than 2 Ur Leukocyte Esterase Negative Urine RBC Less than 1 Urine WBC 1 Hyaline Casts 1 Urine Mucus Few H Micro UA Comment Cath-culture not ind Ur Microscopic Review Not Reportable Urine Culture Comments Cath-cult not ind Serum Alcohol Blood Type Antibody Screen 01/04/18 01/04/18 06:33 08:57 WBC RBC Hgb Hct MCV MCH MCHC RDW Plt Count MPV Neut % (Auto) Lymph % (Auto) [place] % (Auto) Eos % (Auto) Baso % (Auto) Neut # (Auto) Lymph # (Auto) [place] # (Auto) Eos # (Auto) Baso # (Auto) WBC Differential Differential Comment PT INR APTT Sodium 143 Potassium 3.8 D Chloride 108 H Carbon Dioxide 25.9 Anion Gap 9 BUN 43 H Creatinine 2.73 H Estimated GFR 24 L POC Glucose 69 Random Glucose 54 L D Calcium 7.8 L Magnesium Total Bilirubin 0.2 AST 14 L ALT 20 Alkaline Phosphatase 77 Troponin I Total Protein 5.8 L D Albumin 2.6 L Lipase Urine Color Urine Clarity Urine pH Ur Specific [place] Urine Protein Urine Glucose (UA) Urine Ketones Urine Occult Blood Urine Nitrate Urine Bilirubin Urine Urobilinogen Ur Leukocyte Esterase Urine RBC Urine WBC Hyaline Casts Urine Mucus Micro UA Comment Ur Microscopic Review Urine Culture Comments Serum Alcohol Blood Type Antibody Screen - Imaging Impressions Chest X-Ray 01/03/18 21:58 CONCLUSION: No evidence of acute cardiopulmonary disease. Venous Doppler Study 01/04/18 00:00 CONCLUSION: Acute thrombus in the left basilic vein. <Mike,Min - Last Filed: 01/04/18 11:39> Assessment and Plan (1) Hematemesis Status: Acute Code(s): K92.0 - Hematemesis (2) Anemia Status: Acute Code(s): D64.9 - Anemia, unspecified - Plan Mr. Yang is a 67-year-old male patient who has a past medical history significant for hypertension, COPD, anxiety, depression, diabetes type 2, and right pontine CVA. Patient was diagnosed with CVA 1 week ago after a syncopal episode via CT scan. Patient has been residing in a detention facility and has been receiving aspirin 325 mg p.o. daily. Patient presented to the emergency room this a.m. with complaints of nausea with emesis x2 with blood noted bright red per patient. Patient denies any blood noted in stool and upon arrival to ED Hemoccult tested negative. Patient denies heartburn or any difficulty swallowing or pain with swallowing. Patient does endorse that a few weeks ago he was regularly taking Motrin 600 mg every 3-4 hours for a toothache that he was experiencing. Patient states family history of gastric ulcers-his father. Patient denies ever having had an upper endoscopy done or a colonoscopy. Again patient denies any noted blood in stool and states that his bowel movements are normally soft and brown once a day without any reports of diarrhea or constipation. Patient states he smokes half a pack of cigarettes a day and 1 day out of the week he drinks a total of 6 beers. 01/04/2018 WBC 16.0 hemoglobin 8.4 hematocrit 25.1 platelet count 436 INR 0.9 BUN 43 creatinine 2.73 with a GFR of 24 total bilirubin 0.2 AST 14 ALT 20 with a alk phos of 77. I discussed the importance of the avoidance of nonsteroidal anti-inflammatory medications with patient and the possibility of having an upper endoscopy procedure. Patient verbalized understanding and agreement Plan: -Clear liquid diet -NPO after midnight -Continue to monitor labs -EGD tomorrow -Consent for EGD -Continue ppi -Anti-emetics as ordered -Avoidance of aspirin, NSAIDs -Supportive care -Further recommendations to follow This patient has been seen by myself and Dr. Mckeon and this note is written on his behalf - Attending Attestation Dr. Mckeon <Brigida Lopes - Last Filed: 01/04/18 09:31> (1) Hematemesis Status: Acute Code(s): K92.0 - Hematemesis (2) Anemia Status: Acute Code(s): D64.9 - Anemia, unspecified - Plan Seen and examined with GLIDING PILOT INSTRUCTOR, no active bleeding at present. Protonix, monitor labs. Egd planned. Thank you The exam, history, and the medical decision-making described in the above note were completed with the assistance of the mid-level provider. I reviewed and agree with the findings presented. I attest that I had a [id number] encounter with the patient on the same day, and personally performed and documented my assessment and findings in the medical record. <Pako Mckeon - Last Filed: 01/04/18 11:39>
--- NOTE | 2018-01-04 10:01 | US ---
EXAM DATE: 01/04/2018 12:00 AM EDT AGE/SEX: 67 years / Male INDICATIONS: Left upper extremity edema. CLINICAL DATA: This is the patient's initial encounter. Patient reports that signs and symptoms have been present for 1 week and indicates a pain score of 0/10. MEDICAL/SURGICAL HISTORY: . Chronic obstructive pulmonary disease. Diabetes. Hypertension. O steoarthritis. None. COMPARISON: . FINDINGS: There is thrombus within the left basilic vein. The vein appears enlarged. The patient sta braden they had an IV 1 week ago in this region. Alternatively of the venous structures in the left upper extremity are pat ent. Other: None. CONCLUSION: Acute thrombus in the left basilic vein. Electronically signed by: Gm Rae MD 01/04/2018 10:00 AM EDT
[2018-01-04] MEDS ORDERED: Dextrose 50% in Water 50 ML Vial IV.PUSH PRN (14:48)
[2018-01-04] MEDS: Insulin NovoLOG Aspart Correctional Sugar Inj SQ SCH ×2 (17:00→20:40)
[2018-01-04] MEDS: Budesonide-Formoterol 160/4.5 MCG 6 GM Inhaler INH SCH (20:37)
[2018-01-05] MEDS: Sod Chloride 0.9% Inj 1,000 ML IV.CONT SCH ×3 (06:35→21:42)
[2018-01-05 07:28] LABS: Baso # (Auto) 0.2 th/mm3 (0.0-0.2); Baso % (Auto) 1.1 % (0.0-2.0); Eos # (Auto) 0.3 th/mm3 (0.0-0.4); Eos % (Auto) 2.6 % (0.0-4.0); Hematocrit 24.5 % (39.0-51.0); Lymph # (Auto) 2.1 th/mm3 (1.0-4.8); Mean Corpuscular HGB Conc 32.7 % (32.0-36.0); Mean Corpuscular Hemoglobin 29.2 pg (27.0-34.0); Mean Corpuscular Volume 89.2 fL (80.0-100.0); Mean Platelet Volume 7.7 fL (7.0-11.0); Mono # (Auto) 0.9 th/mm3 (0.0-0.9); Mono % (Auto) 6.9 % (0.0-8.0); Neut # (Auto) 9.6 th/mm3 (1.8-7.7); Neut % (Auto) 73.4 % (16.0-70.0); Platelet Count 407 th/mm3 (150-450); Red Blood Count 2.74 mil/mm3 (4.50-5.90); Red Cell Distribution Width 14.7 % (11.6-17.2); White Blood Count 13.2 th/mm3 (4.0-11.0)
[2018-01-05 07:54] LABS: Calcium 7.7 mg/dL (8.5-10.1); Carbon Dioxide 24.8 meq/L (21.0-32.0); Magnesium 1.9 mg/dL (1.5-2.5); Potassium 4.4 meq/L (3.5-5.1)
[2018-01-05] MEDS: amLODIPine 10 MG Tablet PO SCH (08:28)
[2018-01-05] MEDS: Insulin NovoLOG Aspart Correctional Sugar Inj SQ SCH ×4 (09:02→21:29)
[2018-01-05] MEDS ORDERED: Lidocaine PF 1% Inj 5 ML Syringe OTHER ONE ×2 (09:06)
--- NOTE | 2018-01-05 09:46 | GIPROC ---
[facility] [address] [facility]. [facility], [address] EGD PROCEDURE REPORT EXAM DATE: 01/05/2018 PATIENT NAME: Zach Yang MR #: [id number] BIRTHDATE: 1950 ATTENDING: Pako Mckeon MD ORDER #: [id number] LOOK OUT TOWER FIRE WATCHER: Murphy Luna and Cele Rodarte STATUS: inpatient INDICATIONS: The patient is a 67 yr old male here for an EGD due to acute post hemorrhagic anemia and melena PROCEDURE PERFORMED: EGD w/ biopsy MEDICATIONS: None and Per Anesthesia. TOPICAL ANESTHETIC: CONSENT: The patient understands the risks and benefits of the procedure and understands that these risks include, but are not limited to: sedation, allergic reaction, infection, perforation and/or bleeding. Alternative means of evaluation and treatment include, among others: physical exam, x-rays, and/or surgical intervention. The patient elects to proceed with this endoscopic procedure. medical equipment was checked for proper function. Hand hygiene and appropriate measures for infection prevention was taken. After the risks, benefits and alternatives of the procedure were thoroughly explained, Informed consent was verified, confirmed and timeout was successfully executed by the treatment team. The patient was anesthetized with topical anesthesia and the Pentax [id number] endoscope was introduced through the mouth and advanced to the second portion of the duodenum. Retroflexed views revealed no abnormalities The gastroscope was then slowly withdrawn and removed. ESOPHAGUS: There was LA Class A esophagitis noted. A biopsy was performed using cold forceps. Sample sent for histology. STOMACH: There was erythematous moderate gastritis in the gastric antrum. DUODENUM: The duodenal mucosa appeared normal in the bulb and second portion of the duodenum. ADVERSE EVENTS: There were no complications. IMPRESSIONS: 1. There was LA Class A esophagitis noted; biopsy was performed 2. There was erythematous gastritis in the gastric antrum 3. Normal duodenal mucosa in the bulb and second portion of the duodenum 4. Retroflexed views revealed no abnormalities RECOMMENDATIONS: 1. Await biopsy results. Biopsy results will not be ready for 7-10 days. If you don't hear from us in two weeks, call our office for biopsy results. 2. Anti-reflux regimen 3. Continue PPI 4. Avoid NSAIDS 5. Colonoscopy PATIENT CONDITION: stable DISPOSITION: Inpatient REPEAT EXAM: Return 1 year EGD pending biopsy results Pako Mckeon MD eSigned: Pako Mckeon MD 01/05/2018 9:46 AM cc: PATIENT NAME: Zach Yagn MR#: [id number]
[2018-01-05] MEDS: Pantoprazole Inj 40 MG Vial IV.PUSH SCH ×2 (10:21→21:35)
[2018-01-05] MEDS: FLUoxetine 20 MG Capsule PO SCH (10:23)
[2018-01-05] MEDS: Senna/Docusate Sodium 8.6/50 MG Tablet PO SCH ×2 (10:23→21:39)
[2018-01-05] MEDS: Budesonide-Formoterol 160/4.5 MCG 6 GM Inhaler INH SCH ×2 (10:23→21:37)
--- NOTE | 2018-01-05 10:25 | P.PN ---
Subjective Interval history: Follow-up for hematemesis, COPD exacerbation. Patient reports few episodes of nausea overnight, relieved by antiemetics. Denies any vomiting/hematemesis. He has not had a BM. Denies any abdominal pain. Denies any lightheadedness, dizziness, chest pain, shortness of breath. He states his wheezing has improved. He reports continued left arm swelling, but denies any pain. Denies any other medical complaints at this time. Going for EGD today. Physical Exam Vital signs: Vital Signs 01/04/18 12:00 01/04/18 16:00 01/04/18 16:46 Temperature 97.8 F 98.0 F Pulse Rate 88 84 90 Respiratory Rate 18 16 14 Blood Pressure 163/73 H 140/64 Pulse Oximetry 93 L 95 01/04/18 20:00 01/04/18 20:21 01/04/18 23:38 Temperature 97.9 F 98.0 F Pulse Rate 81 81 86 Respiratory Rate 19 20 19 Blood Pressure 151/70 H 172/76 H Pulse Oximetry 100 98 98 01/05/18 02:08 01/05/18 04:00 01/05/18 07:26 Temperature 98.3 F Pulse Rate 85 93 H 88 Respiratory Rate 16 19 20 Blood Pressure 181/84 H Pulse Oximetry 99 97 01/05/18 08:00 01/05/18 09:48 01/05/18 10:05 Temperature 98.2 F 97.7 F Pulse Rate 80 75 74 Respiratory Rate 18 15 15 Blood Pressure 154/70 H 138/64 137/65 Pulse Oximetry 97 99 99 Intake & Output 01/04/18 01/05/18 01/05/18 18:59 06:59 18:59 Intake Total 1000 / 1000 2940 / 2940 Balance 1000 / 1000 2940 / 2940 Intake: IV 1000 / 1000 1939 NS Inj 1,000 ML @ 100 mls/hr IV 1000 / 1000 1939 .CONT .Q10H [facility] Rx#:[id number] Other 1000 / 1000 Other: Other Intake Source Saline Solution Date of Last Bowel Movement 01/03/18 01/03/18 Narrative: GENERAL: Well-nourished, well-developed male patient in [place]. SKIN: Warm and dry. No rash. HEENT: Normocephalic. Atraumatic. Pupils equal and round. Mucous membranes pink and moist. CARDIOVASCULAR: Regular rate and rhythm. No murmur appreciated. RESPIRATORY: No accessory muscle use. Clear to auscultation. Breath sounds equal bilaterally. GASTROINTESTINAL: Abdomen soft, non-tender, nondistended. Normoactive bowel sounds x4. MUSCULOSKELETAL: No obvious deformities. Left hand/forearm in short arm splint. LUE diffusely edematous and much larger when compared to RUE. NEUROLOGICAL: Awake and alert. No obvious cranial nerve deficits. Motor grossly within normal limits. Moving all extremities spontaneously. Normal speech. PSYCHIATRIC: Appropriate mood and affect; insight and judgment normal. - Urinary Catheter Management Indwelling Urethral Catheter Cath placed during this visit: yes Reason for continuing: Chronic Urinary Retention Insertion date: 01/01/18 Results - Labs CBC & Chem 7: 01/05/18 07:02 01/05/18 07:02 Laboratory Results - last 24 hr 01/04/18 01/04/18 01/05/18 18:29 20:26 07:02 WBC 13.2 H RBC 2.74 L Hgb 8.0 L Hct 24.5 L MCV 89.2 MCH 29.2 MCHC 32.7 RDW 14.7 Plt Count 407 MPV 7.7 Neut % (Auto) 73.4 H Lymph % (Auto) 16.0 Smyth % (Auto) 6.9 Eos % (Auto) 2.6 Baso % (Auto) 1.1 Neut # (Auto) 9.6 H Lymph # (Auto) 2.1 Smyth # (Auto) 0.9 Eos # (Auto) 0.3 Baso # (Auto) 0.2 WBC Differential . Differential Comment Auto diff final Sodium Potassium Chloride Carbon Dioxide Anion Gap BUN Creatinine Estimated GFR POC Glucose 180 H 333 H Random Glucose Calcium Magnesium 01/05/18 01/05/18 01/05/18 07:02 08:22 09:51 WBC RBC Hgb Hct MCV MCH MCHC RDW Plt Count MPV Neut % (Auto) Lymph % (Auto) Smyth % (Auto) Eos % (Auto) Baso % (Auto) Neut # (Auto) Lymph # (Auto) Smyth # (Auto) Eos # (Auto) Baso # (Auto) WBC Differential Differential Comment Sodium 142 Potassium 4.4 Chloride 109 H Carbon Dioxide 24.8 Anion Gap 8 BUN 28 H Creatinine 2.32 H Estimated GFR 28 L POC Glucose 155 H 120 H Random Glucose 100 Calcium 7.7 L Magnesium 1.9 - Imaging Chest X-Ray 01/03/18 21:58 CONCLUSION: No evidence of acute cardiopulmonary disease. Venous Doppler Study 01/04/18 00:00 CONCLUSION: Acute thrombus in the left basilic vein. - Procedures 01/05/18 EGD: IMPRESSIONS: 1. There was LA Class A esophagitis noted; biopsy was performed 2. There was erythematous gastritis in the gastric antrum 3. Normal duodenal mucosa in the bulb and second portion of the duodenum 4. Retroflexed views revealed no abnormalities RECOMMENDATIONS: 1. Await biopsy results. Biopsy results will not be ready for 7-10 days. If you don't hear from us in two weeks, call our office for biopsy results. 2. Anti-reflux regimen 3. Continue PPI 4. Avoid NSAIDS 5. Colonoscopy Assessment and Plan - Assessment (1) GI bleed Code(s): K92.2 - Gastrointestinal hemorrhage, unspecified Status: Acute (2) Anemia Code(s): D64.9 - Anemia, unspecified Status: Acute (3) DM (diabetes mellitus) Code(s): E11.9 - Type 2 diabetes mellitus without complications Status: Acute (4) COPD (chronic obstructive pulmonary disease) Code(s): J44.9 - Chronic obstructive pulmonary disease, unspecified Status: Acute - Plan 67-year-old male patient who has a past medical history significant for hypertension, COPD, anxiety, depression, diabetes type 2, and recently diagnosed right pontine CVA on aspirin 325mg x1 week, presents from SNF with complaints of nausea with hematemesis x2. Patient denies any blood noted in stool and upon arrival to ED, Hemoccult tested negative. GI Bleed/Hematemesis: recently started on aspirin for CVA. Hemoccult negative. -Continue IV protonix 40mg bid -Avoid ASA/NSAIDs for now -Consult GI -01/05 s/p EGD showed esophagitis (biopsy taken), erythematous gastritis; recommended antireflux regimen, PPI, avoid NSAIDs, needs colonoscopy -Liquid diet for now Subacute CVA: right pontine CVA diagnosed 1 week ago, has been on full strength aspirin -aspirin on hold for GI bleed as above -Consult PT/OT -Patient will return to [facility] at discharge. Acute DVT: patient with +edema of LUE. -LUE Doppler U/S shows acute thrombus in left basilic vein -Complicated patient for anticoagulation, recent stroke, now with GI bleed and anemia, consulted Hematology for further assistance Acute COPD Exacerbation: patient with wheezing on exam -Continue duonebs q6h and q2h prn -Start on Symbicort bid Diabetes Mellitus: chronic -monitor Accu-Cheks and cover with SSI Anxiety/Depression: chronic -continue patient's fluoxetine DVT Prophylaxis: teds/SCDs; holding chemical prophylaxis with GI bleed Discharge Planning: Discharge pending GI clearance and hematology evaluation.
[2018-01-05 18:53] LABS: % Iron Saturation 13.5 % (20-50)
[2018-01-05 19:18] LABS: Folate 15.4 ng/mL (3.1-17.5)
--- NOTE | 2018-01-05 19:28 | MB ---
cc: Alexa Maria MD DATE: 01/05/2018 CHIEF COMPLAINT: 1. Superficial venous thrombosis. 2. Anemia. 3. Gastrointestinal bleed. HISTORY OF PRESENT ILLNESS: Mr. Yang is a 67-year-old gentleman with a history of diabetes mellitus, COPD, hypertension, osteoarthritis, who was admitted to the hospital on 01/04/2018 with hematemesis and abdominal pain. He was previously admitted to the hospital on 12/28/2017 through 01/01/2018 for syncope and found to have a right pontine stroke and was recommended to be on aspirin and statin. He was subsequently discharged to rehab. The GI team was consulted. He underwent an EGD under the direction of Dr. Mckeon, which showed class A esophagitis. Biopsy taken, moderate gastritis in the gastric antrum. He recommended anti-reflux regimen. Continue proton pump inhibitor. Avoid NSAIDs, as well as a colonoscopy. The patient reports that his abdominal pain is greatly improved. LABORATORY STUDIES: Creatinine of 2.32, total bilirubin 0.2, AST 14, ALT 20, total protein 5.8 and albumin 2.6. The patient has chronic kidney disease and at baseline, and his creatinine is at baseline. White blood cell count is 13, hemoglobin is 8 and platelet count is 407,000. Differential reveals an elevated neutrophil count. Hemoglobin on prior admission was within normal limits. ROS as above in HPI PAST MEDICAL HISTORY: COPD, diabetes, hypertension, osteoarthritis, acid reflux, gastritis, chronic renal disease. FAMILY HISTORY: No known family history of blood abnormalities. SOCIAL HISTORY: The patient has a good support system. He is an active smoker. He drinks 1 drink per day. He reports he is currently working on stopping drinking. HOSPITAL MEDICATIONS: Include: 1. Albuterol. 2. Amlodipine. 3. Atorvastatin. 4. Prozac. 5. Zofran. 6. Protonix. 7. Senna. 8. Docusate. 9. Tamsulosin. ALLERGIES: NO KNOWN DRUG ALLERGIES. PHYSICAL EXAMINATION: GENERAL: Well-developed, large man, in no distress. HEENT: Head is normocephalic, atraumatic. Eyes: PERRLA. EOMI. NECK: Supple. No palpable lymphadenopathy. CARDIOVASCULAR: Regular rate and rhythm. No murmurs. RESPIRATORY: Clear to auscultation bilaterally. ABDOMEN: Soft. Nondistended. EXTREMITIES: No edema. NEUROLOGIC: Grossly nonfocal. PSYCHIATRIC: Appropriate mood and affect. DIAGNOSTIC DATA: Venous Doppler performed of left arm with acute thrombus in the left basilic vein. Other venous structures in the left upper extremity are patent. ASSESSMENT AND PLAN: 1. Anemia, microcytic, likely secondary to acute gastrointestinal bleed. We will check iron profile, ferritin, vitamin B12 and folate. He is status post esophagogastroduodenoscopy, which revealed gastritis and esophagitis, biopsy pending. The patient was told to avoid NSAIDs. 2. Superficial venous thrombosis. Patient with an uncomplicated superficial vein thrombosis in the setting of prior IV line discussed treatment, this is uncomplicated, small clot. Discussed supportive treatment to include extremity elevation, warm or cold compresses. Will not be able to give NSAIDs in this patient with a recent gastrointestinal bleed and finding of gastritis. No evidence of infection. He has never had a past history of blood clot. Discussed cold and warm compresses. He is at low risk for thromboembolism given upper extremity pain. The patient is mildly symptomatic from this. Discussed possibility of low-dose prophylactic anticoagulation with Arixtra, Lovenox or rivaroxaban. However, given recent gastrointestinal bleed, feel that the risks outweigh the benefits in this setting. Discussed that there is a small, but present risk that the thrombus could extend into the deep venous system. Continue to monitor. Continue supportive care. MD BETH Connolly/brinda , 06:28 PM , 06:39 PM SIM
[2018-01-06] MEDS: Sod Chloride 0.9% Inj 1,000 ML IV.CONT SCH ×2 (02:08→13:38)
--- NOTE | 2018-01-06 09:09 | P.PN ---
Physical Exam Vital signs: Vital Signs 01/05/18 09:48 01/05/18 10:05 01/05/18 12:00 Temperature 97.7 F 97.4 F L Pulse Rate 75 74 85 Respiratory Rate 15 15 18 Blood Pressure 138/64 137/65 154/70 H Pulse Oximetry 99 99 97 01/05/18 12:27 01/05/18 16:00 01/05/18 19:29 Temperature 98.1 F 98.0 F Pulse Rate 74 93 H 91 H Respiratory Rate 18 14 19 Blood Pressure 130/60 143/67 H Pulse Oximetry 94 L 92 L 01/05/18 23:34 01/06/18 03:40 01/06/18 08:35 Temperature 98.3 F 97.9 F 97.8 F Pulse Rate 87 94 H 83 Respiratory Rate 20 19 Blood Pressure 158/70 H 175/79 H 166/73 H Pulse Oximetry 92 L 93 L 97 Intake & Output 01/05/18 01/06/18 01/06/18 18:59 06:59 18:59 Intake Total 100 / 100 3200 / 3200 Output Total 1300 / 1300 Balance 100 / 100 1900 / 1900 Intake: IV 1999 NS Inj 1,000 ML @ 100 mls/hr IV 1999 .CONT .Q10H RE Rx#:[id number] Oral 1200 / 1200 Anesthesia Amount 100 / 100 Output: Urine Amount (Catheter) 1300 / 1300 Indwelling Urethral Catheter 1300 / 1300 Other: Date of Last Bowel Movement 01/03/18 - Urinary Catheter Management Indwelling Urethral Catheter Cath placed during this visit: yes Reason for continuing: Acute urinary retention Insertion date: 01/01/18 Results - Labs CBC & Chem 7: 01/05/18 07:02 01/05/18 07:02 Laboratory Results - last 24 hr 01/05/18 01/05/18 01/05/18 07:02 09:51 12:56 POC Glucose 120 H 198 H Iron 27 L TIBC 200 L % Saturation 13.5 L Ferritin 361 Vitamin B12 543 Folate 15.4 01/05/18 01/05/18 17:40 20:41 POC Glucose 363 H 301 H Iron TIBC % Saturation Ferritin Vitamin B12 Folate - Procedures 01/05/18 EGD: IMPRESSIONS: 1. There was LA Class A esophagitis noted; biopsy was performed 2. There was erythematous gastritis in the gastric antrum 3. Normal duodenal mucosa in the bulb and second portion of the duodenum 4. Retroflexed views revealed no abnormalities RECOMMENDATIONS: 1. Await biopsy results. Biopsy results will not be ready for 7-10 days. If you don't hear from us in two weeks, call our office for biopsy results. 2. Anti-reflux regimen 3. Continue PPI 4. Avoid NSAIDS 5. Colonoscopy Assessment and Plan - Assessment (1) GI bleed Code(s): K92.2 - Gastrointestinal hemorrhage, unspecified Status: Acute (2) Anemia Code(s): D64.9 - Anemia, unspecified Status: Acute (3) DM (diabetes mellitus) Code(s): E11.9 - Type 2 diabetes mellitus without complications Status: Acute (4) COPD (chronic obstructive pulmonary disease) Code(s): J44.9 - Chronic obstructive pulmonary disease, unspecified Status: Acute - Plan 67-year-old male patient who has a past medical history significant for hypertension, COPD, anxiety, depression, diabetes type 2, and recently diagnosed right pontine CVA on aspirin 325mg x1 week, presents from SNF with complaints of nausea with hematemesis x2. Patient denies any blood noted in stool and upon arrival to ED, Hemoccult tested negative. GI Bleed/Hematemesis: recently started on aspirin for CVA. Hemoccult negative. -Continue IV protonix 40mg bid -Avoid ASA/NSAIDs for now -Consult GI -01/05 s/p EGD showed esophagitis (biopsy taken), erythematous gastritis; recommended antireflux regimen, PPI, avoid NSAIDs, needs colonoscopy -Liquid diet for now Subacute CVA: right pontine CVA diagnosed 1 week ago, has been on full strength aspirin -aspirin on hold for GI bleed as above -Consult PT/OT -Patient will return to [facility] at discharge. Acute DVT: patient with +edema of LUE. -LUE Doppler U/S shows acute thrombus in left basilic vein -Complicated patient for anticoagulation, recent stroke, now with GI bleed and anemia, consulted Hematology for further assistance Acute COPD Exacerbation: patient with wheezing on exam -Continue duonebs q6h and q2h prn -Start on Symbicort bid Diabetes Mellitus: chronic -monitor Accu-Cheks and cover with SSI Anxiety/Depression: chronic -continue patient's fluoxetine DVT Prophylaxis: teds/SCDs; holding chemical prophylaxis with GI bleed Discharge Planning: Discharge pending GI clearance and hematology evaluation.
[2018-01-06] MEDS ORDERED: Polyethylene Glycol 3350 17 GM Packet PO SCH (09:15)
[2018-01-06] MEDS: Insulin NovoLOG Aspart Correctional Sugar Inj SQ SCH ×2 (09:54→14:07)
[2018-01-06] MEDS: Senna/Docusate Sodium 8.6/50 MG Tablet PO SCH (09:54)
[2018-01-06] MEDS: Pantoprazole Inj 40 MG Vial IV.PUSH SCH (09:54)
[2018-01-06] MEDS: amLODIPine 10 MG Tablet PO SCH (09:55)
[2018-01-06] MEDS: FLUoxetine 20 MG Capsule PO SCH (11:27)
[2018-01-06] MEDS: Budesonide-Formoterol 160/4.5 MCG 6 GM Inhaler INH SCH (11:27)
--- NOTE | 2018-01-06 14:47 | P.DS ---
Date of admission: 01/04/18 00:06 Primary care physician: UNKNOWN Anticipated date of discharge: 01/06/18 Brief History from admission: This is a 67-year-old male with a PMH of HTN, COPD, Anxiety, Depression and DM who was sent to the ER from SNF for nausea/vomiting and hematemesis. 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 Hemoccult negative. On arrival, BP 147/66, HR 88, O2 sat 95% on RA. Hemoglobin 8.7, previously 9.7 on 01/01/2018. Creatinine 3.08, previously 2.53 on 01/01/2018. Troponin negative. UA negative. CXR with no acute findings. Patient update on day of discharge: The patient reports feeling better today. He tolerated clear liquids and requests to advance diet. Still has intermittent bouts of nausea without vomiting, relieved by antiemetics. Denies fevers/chills. No BM overnight. Denies any lightheadedness, dizziness, chest pain, or shortness of breath. Left arm swelling improving. Denies any other medical complaints at this time. DS: Diagnosis - Discharge Diagnosis (1) GI bleed Status: Acute (2) Anemia Status: Acute (3) DM (diabetes mellitus) Status: Acute (4) COPD (chronic obstructive pulmonary disease) Status: Acute (5) Esophagitis Status: Acute (6) Gastritis Status: Acute DS: Medications - Discharge Medications Prescriptions: aspirin [Ecotrin Low Strength] 81 mg PO DAILY #30 tab budesonide-formoterol [Symbicort] 2 puff INH BID #1 inhaler pantoprazole [Protonix] 40 mg PO BID #60 tab prochlorperazine maleate [Compazine] 5 mg PO Q6-8H PRN #30 tab PRN Reason: nausea/vomiting DS: Summary Hospital Course: 67-year-old male patient who has a past medical history significant for hypertension, COPD, anxiety, depression, diabetes type 2, and recently diagnosed right pontine CVA on aspirin 325mg x1 week, presents from SNF with complaints of nausea with hematemesis x2. Patient denies any blood noted in stool and upon arrival to ED, Hemoccult tested negative. GI Bleed/Hematemesis: recently started on aspirin for CVA. Hemoccult negative. Given IV protonix 40mg bid. Avoid ASA/NSAIDs for now. Consulted GI. 01/05 s/p EGD showed esophagitis (biopsy taken), erythematous gastritis; recommended antireflux regimen, PPI, avoid NSAIDs. Diet advanced from liquids to soft foods , patient tolerated well. Discussed with Dr. Mckeon, cleared for discharge. Subacute CVA: right pontine CVA diagnosed 1 week ago, has been on full strength aspirin. Aspirin initially on hold for GI bleed as above. Consult PT/OT. Patient will return to [facility] at discharge. Discussed with GI Dr. Mckeon, ok to restart aspirin 81mg daily. Outpatient f/up with neuro. Acute LUE Superficial Thrombus: patient with +edema of LUE. LUE Doppler U/S shows acute thrombus in left basilic vein. No anticoagulation warranted. Acute COPD Exacerbation: patient with wheezing on exam. Continued on duonebs q6h and q2h prn. Started on Symbicort bid. Symptoms improved. Stable on room air. Lungs clear to auscultation upon discharge. Diabetes Mellitus: chronic. Monitor Accu-Cheks and cover with SSI Urinary Retention: has [place] in place from SNF upon arrival. UA negative. Outpatient f/up with urology. - Time Spent with Patient Total time spent providing and/or coordinating discharge services: Greater than 30 minutes - Quality: VTE Deep Vein Thrombosis/Pulmonary Embolism Present on Admission: No Exam Vital signs: Vital Signs 01/05/18 16:00 01/05/18 19:29 01/05/18 23:34 Temperature 98.1 F 98.0 F 98.3 F Pulse Rate 93 H 91 H 87 Respiratory Rate 14 19 20 Blood Pressure 130/60 143/67 H 158/70 H Pulse Oximetry 94 L 92 L 92 L 01/06/18 03:40 01/06/18 08:35 01/06/18 12:01 Temperature 97.9 F 97.8 F 98.2 F Pulse Rate 94 H 83 90 Respiratory Rate 19 18 Blood Pressure 175/79 H 166/73 H 140/65 Pulse Oximetry 93 L 97 94 L Intake & Output 01/05/18 01/06/18 01/06/18 18:59 06:59 18:59 Intake Total 100 / 100 3200 / 3200 1130 / 1130 Output Total 1300 / 1300 Balance 100 / 100 1900 / 1900 1130 / 1130 Intake: IV 1999 950 / 950 NS Inj 1,000 ML @ 100 mls/hr IV 1999 950 / 950 .CONT .Q10H RE Rx#:[id number] Oral 1200 / 1200 180 / 180 Anesthesia Amount 100 / 100 Output: Urine Amount (Catheter) 1300 / 1300 Indwelling Urethral Catheter 1300 / 1300 Other: Date of Last Bowel Movement 01/03/18 Narrative: GENERAL: Well-nourished, well-developed male patient in [facility]. SKIN: Warm and dry. No rash. HEENT: Normocephalic. Atraumatic. Pupils equal and round. Mucous membranes pink and moist. CARDIOVASCULAR: Regular rate and rhythm. No murmur appreciated. RESPIRATORY: No accessory muscle use. Clear to auscultation. Breath sounds equal bilaterally. GASTROINTESTINAL: Abdomen soft, non-tender, nondistended. Normoactive bowel sounds x4. MUSCULOSKELETAL: No obvious deformities. Left hand/forearm in short arm splint. LUE diffusely edematous and much larger when compared to RUE, overall improving. NEUROLOGICAL: Awake and alert. No obvious cranial nerve deficits. Motor grossly within normal limits. Moving all extremities spontaneously. Normal speech. PSYCHIATRIC: Appropriate mood and affect; insight and judgment normal. Results Procedures completed during hospitalization: 01/05 EGD showed class A esophagitis and erythematous gastritis Pending studies at discharge: Pending at discharge 01/05/18 07:21 Surgical [PTH] Routine Labs on day of discharge: Labs from last 24 hours 01/06/18 01/06/18 01/05/18 13:30 09:47 20:41 POC Glucose 296 H 128 H 301 H Iron TIBC % Saturation Ferritin Vitamin B12 Folate 01/05/18 01/05/18 17:40 07:02 POC Glucose 363 H Iron 27 L TIBC 200 L % Saturation 13.5 L Ferritin 361 Vitamin B12 543 Folate 15.4 - Impressions ITS Impressions Chest X-Ray 01/03/18 21:58 CONCLUSION: No evidence of acute cardiopulmonary disease. Venous Doppler Study 01/04/18 00:00 CONCLUSION: Acute thrombus in the left basilic vein. Discharge Plan - Discharge Disposition Patient Disposition: 03 Discharge to SNF - Discharge Condition Condition: Fair - Discharge Order Discharge Orders: Discharge Order (Routine); Ordered 01/06/18 Ordered By: Martina Patrick - Discharge Details Anticipated Discharge Date: 01/06/18 - Physicians Team Primary Care Provider: UNKNOWN, Attending Provider: Char Cortez Other Providers: Pako Mckeon MD ; Alexa Maria ; [facility], [place]
--- NOTE | 2018-01-06 15:43 | P.PNONC ---
Subjective Interval history: Resting comfortably in bed. Significant other at bedside. Arm swelling improved today. Objective Vital Signs/Intake & Output: Vital Signs 01/05/18 16:00 01/05/18 19:29 01/05/18 23:34 Temperature 98.1 F 98.0 F 98.3 F Pulse Rate 93 H 91 H 87 Respiratory Rate 14 19 20 Blood Pressure 130/60 143/67 H 158/70 H Pulse Oximetry 94 L 92 L 92 L 01/06/18 03:40 01/06/18 08:35 01/06/18 12:01 Temperature 97.9 F 97.8 F 98.2 F Pulse Rate 94 H 83 90 Respiratory Rate 19 18 Blood Pressure 175/79 H 166/73 H 140/65 Pulse Oximetry 93 L 97 94 L Intake & Output 01/05/18 01/06/18 01/06/18 18:59 06:59 18:59 Intake Total 100 / 100 3200 / 3200 1130 / 1130 Output Total 1300 / 1300 1100 / 1100 Balance 100 / 100 1900 / 1900 30 / 30 Intake: IV 1999 / 1999 950 / 950 NS Inj 1,000 ML @ 100 mls/hr IV 2000 / 2000 950 / 950 .CONT .Q10H [facility] Rx#:[id number] Oral 1200 / 1200 180 / 180 Anesthesia Amount 100 / 100 Output: Urine 1100 / 1100 Urine Amount (Catheter) 1300 / 1300 Indwelling Urethral Catheter 1300 / 1300 Other: Date of Last Bowel Movement 01/03/18 Result Diagrams: 01/05/18 07:02 01/05/18 07:02 Laboratory Results: Laboratory Results - last 24 hr 01/05/18 01/05/18 01/05/18 07:02 17:40 20:41 POC Glucose 363 H 301 H Iron 27 L TIBC 200 L % Saturation 13.5 L Ferritin 361 Vitamin B12 543 Folate 15.4 01/06/18 01/06/18 09:47 13:30 POC Glucose 128 H 296 H Iron TIBC % Saturation Ferritin Vitamin B12 Folate Medications: Active Medications Generic Name Dose Route Start Last Admin Trade Name Freq PRN Reason Stop Dose Admin Albuterol 1 ampul 01/04/18 14:46 01/05/18 02:08 Duoneb Neb (Prn) NEB 1 ampul Q4HR NEB PRN Administration SOB/wheezing Albuterol 1 ampul 01/04/18 15:00 01/06/18 08:28 Duoneb Neb (Angeles) NEB 1 ampul Q6HR WHILE AWAKE NEB ANGELES Administration Amlodipine Besylate 10 mg 01/05/18 09:00 01/06/18 09:55 Norvasc PO 10 mg DAILY ANGELES Administration Atorvastatin Calcium 80 mg 01/04/18 21:00 01/05/18 21:30 Lipitor PO 80 mg HS ANGELES Administration Budesonide/Formoterol Fumarate 2 puff 01/04/18 21:00 01/06/18 11:27 Symbicort 160/4.5 Mcg Inh INH 2 puff BID ANGELES Administration Fluoxetine HCl 40 mg 01/05/18 09:00 01/06/18 11:27 Prozac PO 40 mg DAILY ANGELES Administration Sodium Chloride 1,000 mls @ 100 mls/hr 01/03/18 23:45 01/06/18 13:38 Ns Inj IV.CONT 100 mls/hr .Q10H ANGELES Administration Insulin Aspart 0 unit 01/04/18 17:00 01/06/18 14:07 Novolog Insulin Correctional Sugar Inj SQ 5 unit ACHS ANGELES Administration Protocol Pantoprazole Sodium 40 mg 01/04/18 09:00 01/06/18 09:54 Protonix Inj IV.PUSH 40 mg Q12H ANGELES Administration Polyethylene Glycol 17 gm 01/06/18 09:15 01/06/18 11:27 Miralax PO 17 gm DAILY ANGELES Administration Prochlorperazine Edisylate 5 mg 01/06/18 09:07 01/06/18 09:50 Compazine Inj IV.PUSH 5 mg Q6H PRN Administration nausea/vomiting Senna/Docusate Sodium 1 tab 01/04/18 09:00 01/06/18 09:54 Beulah-Colace PO 1 tab BID ANGELES Administration Sodium Chloride 2 ml 01/03/18 21:56 01/05/18 21:40 Ns Flush IV.FLUSH 2 ml PRN PRN Administration FLUSH AFTER USING IV ACCESS Tamsulosin HCl 0.4 mg 01/05/18 09:00 01/06/18 11:27 Flomax PO 0.4 mg DAILY ANGELES Administration Objective Remarks: GENERAL: Well-nourished, well-developed patient. SKIN: Warm and dry. HEAD: Normocephalic. EYES: No scleral icterus. No injection or drainage. RESPIRATORY: No accessory muscle use. EXTREMITIES: swelling around left elbow. Left wrist in splint NEUROLOGICAL: No obvious focal deficit. Awake, alert, and oriented x3. PSYCHIATRIC: Appropriate mood and affect; insight and judgment normal. Assessment/Plan - Plan 1. Left superficial vein thrombosis: symtpoms improved with warm compress. 2. Anemia: acute on chronic due to upper GI bleed. Iron profile with ACD. No benefit of IV iron at this time.
[2018-01-06 15:49] VITALS: BP 148/67; PULSE 98; RESP 20; TEMP 98.5; O2SAT 97
== END 2018-01-06 16:27 ==
LOC: NEPC 21:22 → NEDA 01-04 00:06 → INTOOBSV 01-04 00:06 → NEPGCP 01-04 01:10
PROVIDERS: ADMIT Internal Medicine; ATTEND Internal Medicine
PROC: PANENDO (2018-01-05 09:06)